=== PATIENT | female | born 2000 | race Caucasian/White ===

== ENCOUNTER 2023-12-02 21:59 | Observation (INO) ==
--- OUTSIDE RECORDS SUMMARY | 2023-12-02 22:05 | External Medical Summary | Summary of Care ---
Author Name Unknown Organization [facility] Address [address] [facility] [place] [address] Phone [phone] Care Team Providers Care Entry Level Mechanical Engineer Name Role Phone Victorina Waggoner Primary Care Provider Reason for Visit * Reason Comments Return Visit Encounter Details Date Type Department Care Team (Late st Contact Info) Description 11/30/2023 9:30 AM EDT Office Visit Gynecology/Obstetric [facility] [place] [address] [facility] [place] [address] Lovely Dumont PA-C [address] [facility] [place] [id number] Supervision of high-risk , third trimester*; Obesity in , antepartum; Maternal asthma complicating ; H/O macrosomia in in prior , currently ; Previous delivery, antepartum condition or complication; Short interval between pregnancies complicating , antepartum; Antepartum anemia complicating Allergies Active Allergy Reactions Criticality Noted Date Comments Penicillins Other (Please comment) 02/02/2000 Rash Does not remember severity of reaction d/t being very young documented as of this encounter (statuses as of 11/30/2023) Medications Medication Sig Dispensed Refills Start Date End Date Status Levocetirizine Dihydrochloride 5 MG Oral Tablet Use 1 tablet daily each evening for allergic nasal symptoms 30 Tablet 5 06/21/2021 Active 19 29-1 MG Oral Tablet Chewable Take by mouth . Active Ventolin HFA 108 (90 Base) MCG/ACT Inhalation Aerosol Solution Inhale 2 Puffs by mouth every 4 hours as needed for Cough, Shortness of Breath or Wheezing. 18 g 3 07/26/2022 Active Betamethasone Dipropionate 0.05 % External Cream (Diprosone)Indications :Other atopic dermatitis Apply to eczema on trunk, arms and legs twice daily as needed 45 g 3 07/12/2023 Active Acetaminophen Extra Strength 500 MG Oral Tablet PLEASE SEE ATTACHED FOR DETAILED DIRECTIONS 07/12/2023 Active Iron-Vitamin C 65-125 MG Oral Tablet (Vitron C)Indications:Antepart um anemia complicating Take 1 Tablet by mouth in the morning. 30 Tablet 4 10/05/2023 Active documented as of this encounter (statuses as of 11/30/2023) Active Problems Problem Noted Date Diagnosed Date Antepartum anemia complicating 024 Overview: Started on Vitron C daily Hgb 11.8 with third tri labs Supervision of high-risk , unspecified trimester 08/11/2023 Last Assessment & Plan: -LR Qnatal Acute maxillary sinusitis 06/22/2023 Short interval between pregn ancies complicating , antepartum 05/29/2023 Overview: Last delivery September 03, 2022 which was via Last Assessment & Plan: CONSIDERATIONS: Reviewed that a short Inter- Interval (IPI) may place the patient at an increased risk for , low weight, and SGA . IPI is defined as less than a year from the time of delivery of one to conception of the next . Some studies show that a short IPI may be associated with an increased risk for maternal , third trimester bleeding, premature rupture of membranes, puerperal endometritis, and anemia as well as placental abruption. RECOMMENDATION: After a delivery, we suggest women wait 12 months before conceiving again. Interdelivery interval (IDI) of 18 to 24 months have not been significantly associated with maternal morbidity in women undergoing Trial of Labor After . H/O macrosomia in infant in prior , currently 05/19/2023 Overview: 2022 complicated by macrosomia. weighed 4564 g (10 lbs 1 oz) at term delivered via Last Assessment & Plan: CONSIDERATIONS: Explained that macrosomia is defined as a weight of greater than 4000 grams. A woman who previously has given to an infant weighing more than 4,000 g is 5-10 times more likely to deliver an weighing more than 4,500 g than a woman without such a history. Discussed that a variety of factors predispose a to macrosomia, including preexisting maternal diabetes, uncontrolled gestational diabetes, maternal prepregnancy obesity, excessive gestational weight gain, maternal interpregnancy weight gain, a prior macrosomic , postterm , and maternal nonsmoking status. An accurate diagnosis of macrosomia can be made only by weighing the after delivery. The diagnosis of macrosomia is imprecise. Methods used to predict weight include assessment of maternal risk factors, clinical examination, and ultrasound measurement of the fetus. For suspected macrosomia, the accuracy of estimated weight using ultrasound biometry is no better than that obtained with clinical palpation. RECOMMENDATION: Recommend performing gestational diabetes mellitus screen at time of first visit and repeat again at 26-28 weeks if early screen is normal. Monitor maternal weight gain throughout . Recommended weight gain during is 11-20 pounds for women with pre- BMI of 37. Consider referral for a nutrition consult. Previous delivery, antepartum condition or complication 05/19/2023 Overview: Previous C/S x1 Plan: ERCD Maternal asthma complicating Overview: Managed with albuterol as needed 05/29/23 last albuterol use "years ago" Denies hospitalizations or intubations due to asthma Last Assessment & Plan: CONSIDERATIONS: Asthma symptoms may improve, worsen or remain unchanged in severity in . Asthma is generally managed the same in as in the non- patient, as asthma-control medications are considered safe in . If asthma is well-controlled with medications prior to , it is recommended to continue the same medication regimen during . A patient should seek medical care immediately if an asthma flare does not respond to therapy. Mild and well-controlled moderate asthma can be associated with excellent maternal and outcomes. Severe and poorly controlled asthma may be associated with increased morbidity and mortality. Asthma management includes monitoring of lung function with pulmonary function testing (when indicated), avoidance of triggers (such as tobacco smoke, mold, dust mite exposure, animal dander and cockroaches), and a step-care approach to pharmacologic therapy based on the severity of the patient's asthma. RECOMMENDATIONS: Inhaled corticosteroids are the mainstay of therapy for all patients except those with intermittent asthma. If patients are routinely requiring rescue inhaler (such as albuterol, Ventolin, ProAir, Atrovent, or Proventil) use more than twice weekly, we recommend adding a low-dose inhaled corticosteroid. [Pulmicort (budesonide) is preferred to use in .] If patients are routinely requiring rescue inhaler use daily, we recommend adding a combined low-dose inhaled corticosteroid/long-acting beta-agonist [such as Advair (fluticasone/salmeterol) or Symbicort (budesonide/formoterol)] or a medium dose inhaled corticosteroid. Patient should discuss these treatment options with her primary OB provider or PCP. Typically, patients do not need stress dose steroids as long as they continue their usual dose perioperatively (or during labor) and do not have primary renal failure or other problems with the pituitary axis. Medications such as prostaglandin F2a (including Hemabate), ergonovine, and indomethacin (in patients who are aspirin allergic) should be used with caution. Patients with moderate or severe persistent asthma should have Maternal- Medicine ultrasound for anatomy at 19-20 weeks. surveillance with growth ultrasounds and non-stress tests should be considered starting at 32 weeks. Obesity in , antepartum 07/21/2022 Overview: Pregravid BMI 37.03 Class 2 Early glucose screen ordered; not complete to date Baseline Preeclampsia Labs Lab Results Component Value Date/Time PLT 246 05/18/2023 09:38 AM CREATININE - [facility] 0.8 05/18/2023 09:38 AM AST - [facility] 13 05/18/2023 09:38 AM ALT - [facility] 14 05/18/2023 09:38 AM PROTEIN/ CREATININE RATIO, URINE - [facility] 53 05/18/2023 09:45 AM Last Assessment & Plan: She presents for follow-up of growth and anatomy secondary to class II obesity. She has a history of asthma, a short interval and history of macrosomia. We reviewed the results of today's ultrasound. The estimated weight is appropriate for gestational age in the 27th percentile. The visualized anatomy is unremarkable in appearance. Some structures remain suboptimally imaged secondary to position and poor acoustic windows. The AURORA is normal. We discussed the continued suboptimal cardiac imaging, though no overt abnormalities are appreciated. We reviewed the option of a referral to pediatric cardiology for additional assessment. She is interested in this if it can be obtained at [facility]. Elevated TSH 07/01/2022 Allergic conjunctivitis 10/28/2016 Allergic rhinitis 10/28/2013 Estimated Date of Delivery Comme nts Yes 12/24/2023 Based on Ultraso und documented as of this encounter (statuses as of 11/30/2023) Resolved Problems Problem Noted Date Diagnosed Date Resolved Date 13 weeks gestation of 06/22/2023 10/05/2023 intolerance to labor, delivered, current hospitalization 09/05/2022 09/09/2022 Status post delivery 09/04/2022 10/13/2022 Encounter for induction of labor 09/02/2022 09/09/2022 Group beta Strep positive 08/05/2022 Overview: Clindamycin Susceptible Penicillin G Susceptible Vancomycin Susceptible Encounter for ultrasound to assess growth 07/21/2022 09/09/2022 Overview: Referred to [facility] for "borderline large for gestational age abdominal circumference and humeral length" noted on 07/14/2022 general radiology ultrasound - results below: "Biometry Biparietal diameter: 8.6 cm, 34w 6d Head circumference: 31.9 cm, 36w 0d Abdominal circumference: 32.3 cm, 36w 2d, 98th percentile Femur length: 6.8 cm, 35w 0d Humeral length: 6.2 cm, 35w 6d, 97th percentile HC/AC: 0.99, within normal limits EFW: 2751 g +/-402 which is 92th percentile. IMPRESSION 1. Abdominal circumference and humeral length is borderline large for gestational age. Remaining growth within normal limits utilizing JEIMY from initial scan. 2. Normal AURORA 3. Vertex presentation" Of note: patient is 6' tall 1hr glucola result 128 >1 month ago; may consider repeat testing due to large AC. MFM ultrasound scheduled on 08/08/2022 Last Assessment & Plan: Referred for concern for LGA. Reviewed that fetus does not need criteria for LGA at this time. EFW 82%ile, AC 91%ile. AURORA WNL. Repeated 1hr GCT which was WNL. 31 weeks gestation of 07/01/2022 09/09/2022 Supervision of normal first , antepartum 01/13/2022 09/03/2022 Obesity, Class II, BMI 35-39.9 01/13/2022 10/04/2023 Overview: Early glucola Growth u/s every 4 weeks after 20wk Weekly NST starting at 37w Intermittent asthma with rel iever use up to twice per week 10/30/2014 05/18/2023 Otalgia 08/07/2012 07/12/2016 Dysfunction of eustachian tube 08/07/2012 07/12/2016 Acute URI 02/20/2007 08/31/2007 Acute pharyngitis 02/20/2007 08/31/2007 Overview: strep contact Methicillin resistant Staphy lococcus aureus infection 08/14/2006 07/12/2016 Cellulitis of trunk 08/14/2006 09/22/19 11 ADVANCE DIRECTIVE INFORMATION 09/29/2005 09/21/2010 Overview: Not applicable (under age of 18) Allergic rhinitis 06/03/2005 08/07/2012 Allergic conjunctivitis of both eyes 06/03/2005 07/12/2016 Atopic dermatitis 06/03/2005 05/18/2023 Disorder of vocal cord 06/03/200507/12 Overview: nodules eczema 09/21/2001 08/31/2007 LARYNGOTRACH ANOMALY NEC 12/08/199907/2016 ACQ NASOLACRML STENOSIS 12/08/199909/06 documented as of this encounter (statuses as of 11/30/2023) Immunizations Name Administration Dates Next Due DTaP Dipth/Tet/Acell Pertussis (Infanrix), Peds 06/20/2005 H1N1 2009 Influenza, IM 01/06/2009 HPV Vaccine, 4-Valent 12/02/2013 IPV - Polio Virus Vaccine (Inact) 06/20/2005 MMR - Measles/Mumps/Rubella Vaccine 06/20/2005 Meningococcal Conjugate Vacc ine (Menactra/Menveo) 02/01/2017,10/24/2011 PPD 01/21/2021,06/11/2018 Pneumococcal Conjugate Vacci ne, 20-valent ([id number]) 09/21/2021 RSV Vac., Bivalent, Perfusio n F, Pf,0.5 Ml (Abrysvo) 11/15/2023 Seasonal Influenza Vac., MDV , IM, 0.5 mL (Fluzone) 10/29/2013,11/15/2011,11/10/2010,11/06,12/07/2008,11/20/2006,01/05/20 06 10/29/2014 Seasonal Influenza, PF, 6 M & above, IM , (FluLaval or Fluzone) 11/16/2018,10/28/2016 10/28/2017 Seasonal Influenza, Quadriva lent, No Preserve, IM 10/29/2015,10/30/2014 10/31/2015 TDAP (age 10 and older)(Boostrix) 06/06/2022, TDAP, Age 7 and older, IM (Adacel) 10/05/2023 Varicella Vaccine (Chicken Pox) 10/24/2011 documented as of this encounter Social History Tobacco Use Types Packs/Day Years Used Date Smoking Tobacco: Never Smokeless Tobacco: Never Comments:no passive smoke cu rrently Alcohol Use Standard Drinks/Week Comments Not Currently 0 (1 standard drink = 0.6 oz pur e alcohol) denies in 2023 PHQ-2 Answer Date Recorded PHQ Adult Total Score 0 09/21/2021 Hunger Vital Sign Answer Date Recorded Within the past 12 months, y ou worried that your food would run out before you got the money to buy more. Never true 08/16/19 24 Within the past 12 months, t he food you bought just didn't last and you didn't have money to get more. Never true 08/16/2023 Festus Depression Scale Answer Date Recorded Festus Depression Scale Total 0 2023 The thought of harming myself has occurred to me . Never 2023 Childcare Answer Date Recorded Do you feel overwhelmed with taking care of a child, family member or friend? No 08/16/2023 Does your family need help f inding childcare? (Household - for ages 0-17 years) Not on file 08/16/2023 Clothing Answer Date Recorded Have you been unable to get clothing when it was really needed? No 08/16/2023 Is your family able to get c lothes or diapers when needed? (Household - for ages 0-17 years) Not on file 08/16/2023 Personal Safety Answer Date Recorded Do you feel unsafe or have concerns for your saf ety? No 08/16/2023 Do you have concerns for you r family's safety? (Household - for ages 0-17 years) Not on file 08/16/2023 Utilities Answer Date Recorded Do you have trouble paying y our heating, water, or electric bill? No 08/16/2023 Is your family able to pay t he heat, water, or electric bill? (Household - for ages 0-17 years) Not on file 08/16/2023 Does your family have access to good internet? (Household - for ages 0-17 years) Not on file 08/16/2023 Employment Status Answer Date Recorded Are you unemployed or without regular income? No 08/16/2023 Does the household have a re gular source of income? (Household - for ages 0-17 years) Not on file 08/16/2023 Social Connections Answer Date Recorded How often do you feel lonely or isolated from th ose around you? Never 08/16/2023 Financial Resource Strain Answer Date R ecorded Do you have any trouble payi ng for your medications, or do you think you might in the future? No 08/16/2023 Does your family have troubl e paying for medicine? (Household - for ages 0-17 years) Not on file 08/16/2023 Transportation Needs Answer Date Record ed READ ONLY Do you have troubl e getting a ride to medical visits or work? Never True 08/16/2023 Does your family have a hard time getting a ride to doctors visits? (Household - for ages 0-17 years) Not on file 08/16/2023 Has lack of transportation k ept you from medical appointments, meetings, work, or from getting things needed for daily living? Check all that apply. No 08/16/2023 Do you (or your family) have trouble finding or paying for a ride (transportation)? (Household - for ages 0-17 years) Not on file 08/16/2023 Housing Stability Answer Date Recorded Do you currently live in a s helter or have no steady place to sleep at night? No 08/16/2023 READ ONLY Do you think you a re at risk of becoming homeless? No 08/16/2023 Does your family worry about paying for your home or becoming homeless? (Household - for ages 0-17 years) Not on file 0 08/16/2023 Are you homeless or worried that you might be in the future? No 08/16/2023 Are you (or your family) isreal eless or worried that you might be in the future? (Household - for ages 0-17 years) Not on file Food Insecurity Answer Date Recorded Do you need food for this week? No 08/16/2023 Are you able to get enough f ood for your family? (Household - for ages 0-17 years) Not on file 08/16/2023 Does your family need food t his week? (Household - for ages 0-17 years) Not on file 08/16/2023 Do you always have enough fo od for your family? (Household - for ages 0-17 years) Not on file 08/16/2023 Estimated Date of Delivery Comme nts Yes 12/24/2023 Based on Ultraso und Sex and Gender Information Value Date Recorded Sex Assigned at Female 04/24/2018 12:43 PM EDT Gender Identity Female 04/24/2018 12:43 PM EDT Sexual Orientation Straight 09/21/2021 8: 24 AM EDT Job Start Date Occupation Industry Not on file Not on file Not on file documented as of this encounter Last Filed Vital Signs Vital Sign Reading Time Taken Comments Blood Pressure 102/62 11/30/2023 9:16 AM EDT Pulse - - Temperature - - Respiratory Rate - - Oxygen Saturation - - Inhaled Oxygen Concentration - - Weight 138.3 kg (305 lb) 11/30/2023 9:16 AM EDT Height - - Body Mass Index 41.35 11/17/2023 1:34 PM EDT documented in this encounter Progress Notes * Meena Harvey LPN - 11/30/2023 9:16 AM EDT 36w4d Denies vaginal bleeding/rom + movement No new concerns * Lovely Dumont PA-C - 11/30/2023 8:51 AM EDT Janey Loyola is a 23 year old female here for her routine OB appointment at 36w4d Her Estimated Date of Delivery: 12/24/23 Had U/S with MFM today. Per patient, results WNL. Baby's position is breech. REVIEW OF SYSTEMS She affirms movement. Denies vaginal bleeding, LOF, contractions, N/V, headaches, vision changes. PHYSICAL EXAM Filed Vitals: 11/30/23 0916 BP: 102/62 Weight: (!) 138.3 kg (305 lb) +FHT 140s Fundal height 37 cm GBS swab collected. Trimming Department Blocker Documentation Patient offered corporate secretary and accepted. Name of corporate secretary: Meena Harevy LPN. ASSESSMENT/PLAN Supervision of high-risk , third trimester (Primary) - GROUP B STREP CULTURE/PCR Obesity in , antepartum - To start weekly NSTs with next visit. Maternal asthma complicating H/O macrosomia in infant in prior , currently Previous delivery, antepartum condition or complication - ERCS scheduled. Pre-op appointment with Dr. Robins scheduled 12/01/2023 Short interval between pregnancies complicating , antepartum Antepartum anemia complicating Supervision of - recommended flu vaccine - patient received prior. - GBS swab collected today - labor precautions and kick counts reviewed RTO in 1 week for YARELY/NST Lovely Dumont PA-C 11/30/2023 documented in this encounter Plan of Treatment Upcoming Encounters Date Type Department Care Team (Late st Contact Info) Description 12/04/2023 2:30 PM EDT Office Visit Gynecology/Obstetrics Stephen Rubio [address] [place] [id number] Adan Robins MD [address] [place] [id number] Prema Rubio Stress [facility] [place] [address] [place] [id number] 12/14/2023 3:15 PM EST Office Visit Gynecology/Obstetrics Stephen Rubio [address] [place] [address] Lovely Dumont PA-C [address] [place] [address] [place] [address] Prema Rubio Stress [facility] [place] [address] [place] [phone] 12/26/2023 10:30 AM EST Office Visit Gynecology/Obstetrics Stephen Rubio [address] [place] [address] Tara Liao CRNP [address] [place] [phone] Pending Results Name Type Priority Associated Diagnoses Date /Time GROUP B STREP CULTURE/PCR Lab Routine Supervision of high-risk , third trimester 11/30/2023 9:33 AM EDT Health Maintenance Due Date Last Done Comments HPV (Gardasil) Vaccine (2 - 2-dose series) 06/02/2014 12/02/2013 Depression Screening 09/21/2022 09/21/2021 COVID-19 Vaccine (2023-2 5 season) 2023 02/11/2021, 01/21/2021 Influenza Vaccine (FLU shot) (#1) 2023 11/16/2018, 11/16/2018, 10/28/2016, Additional history exists Gonorrhea / Chlamydia Screen 05/17/202412/2023, 02/26/2022, 01/13/2022, Additional history exists Pap Smear 06/21/2024 06/21/2021 DTap/Tdap Vaccines (9 - Td o r Tdap) 10/04/2033 10/05/2023, 06/06/2022, 10/24/2011, Additional history exists Hepatitis B Vaccine Completed 08/10/2000, 1999, 1999 MENINGOCOCCAL (MENACTRA/MENVEO) Completed 7, 10/24/2011 Pneumococcal Vaccine: Pediat rics (0 to 5 Years) and At-Risk Patients (6 to 64 Years) Completed 09/21/2021 documented as of this encounter Medical Devices Not on filedocumented as of this encounter Visit Diagnoses Diagnosis Supervision of high-risk , third trimester- Primary Obesity in , antepartum Obesity complicating , childbirth, or the puerperium, antepartum condition or complication Maternal asthma complicating Other current maternal conditions classifiable elsewhere, complicating , childbirth, or the puerperium, unspecified as to episode of care H/O macrosomia in infant in prior , currently with other poor obstetric history Previous delivery, antepartum condition or complication Short interval between pregnancies complicating , antepartum Supervision of other high-risk Antepartum anemia complicating Anemia, antepartum documented in this encounter Advance Directives * Full Code (Latest Code Status on File) Date Activated Date Inactivated Comments 09/03/2022 5:55 PM 09/03/2022 9:14 PM This order r eflects the patients wishes and were consensually agreed upon. Question Answer Comments Discussion of Advance Direct deniz occurred with: Not Discussed due to patient's condition Does the patient have a Living Will? No Does the patient have Health Care Power of Pump Station Operator? No * Full Code Date Activated Date Inactivated Comments 09/02/2022 5:18 PM 09/03/2022 5:55 PM This order r eflects the patients wishes and were consensually agreed upon. Question Answer Comments Discussion of Advance Directives occurred with: Patient Healthcare Agents on File Name Relationship Healthcare Agent Relationshi p Communication [place] Spouse Health Care Repr esentative (appointed verbally by patient or by statute hierarchy) Care Teams Entry Level Mechanical Engineer Relationship Specialty Start Date End Date Victorina Waggoner CRNP [address] [place] [id number] PCP - General Nurse Practitioner 03/05/21 documented as of this encounter
--- OUTSIDE RECORDS SUMMARY | 2023-12-02 22:05 | External Medical Summary | Summary of Care ---
Author Name Unknown Organization [facility] Address [address] [place] [place] [address] Phone [phone] Care Team Providers Care Flight Agent Name Role Phone Victorina Waggoner Primary Care Provider Encounter Details Date Type Department Care Team (Late st Contact Info) Description 12/01/2023 Telephone Gynecology/Obstetrics [facility] [address] [place] [address] Lovely Dumont PA-C [address] [place], [place] [phone] Allergies Active Allergy Reactions Criticality Noted Date Comments Penicillins Other (Please comment) 02/02/2000 Rash Does not remember severity of reaction d/t being very young documented as of this encounter (statuses as of 12/01/2023) Medications Medication Sig Dispensed Refills Start Date [...] as of this encounter (statuses as of 12/01/2023) Active Problems Problem Noted Date Diagnosed Date Group beta Strep positive 12/01/2023 Overview: Patient with PCN allergy. Waiting for sensitivities. Antepartum anemia complicating 024 Overview: Started on [...] of Labor After . H/O macrosomia in in prior , currently 05/19/2023 Overview: 2022 complicated by macrosomia. weighed 4564 g (10 lbs 1 oz) at term delivered via Last Assessment & Plan: CONSIDERATIONS: Explained that macrosomia is defined as a weight of greater than 4000 grams. A woman who previously has given to an weighing more than 4,000 g is 5-10 [...] 09:38 AM PROTEIN/ CREATININE RATIO, URINE - SOL 53 05/18/2023 09:45 AM Last Assessment & [...] this if it can be obtained at [facility]. Elevated TSH 07/01/2022 Allergic conjunctivitis 10/28/2016 Allergic rhinitis 10/28/2013 Estimated Date of Delivery Comme nts Yes 12/24/2023 Based on Ultraso und documented as of this encounter (statuses as of 12/01/2023) Resolved Problems Problem Noted Date Diagnosed Date Resolved Date 13 weeks gestation of 06/22/2023 10/05/2023 intolerance to labor, delivered, current hospitalization 09/05/2022 09/09/2022 Status post delivery 09/04/2022 10/13/2022 Encounter for induction of labor 09/02/2022 09/09/2022 Group beta Strep positive 08/05/2022 Overview: Clindamycin Susceptible Penicillin G Susceptible Vancomycin Susceptible Encounter for ultrasound to assess growth 07/21/2022 09/09/2022 Overview: Referred to [facility] for "borderline large for gestational age [...] as of this encounter (statuses as of 12/01/2023) Immunizations Name Administration Dates Next Due DTaP Dipth/Tet/Acell Pertussis (Infanrix), Peds 06/20/2005,06/04/2001,06/01/2000,08/2000,01/05/2000 H1N1 2009 Influenza, IM 01/06/2009 HIB PRP-T, 4 Dose, PF, IM (H iberix, ActHib) 06/04/2001,06/01/2000,03/15/2000,12/08 HPV Vaccine, 4-Valent 12/02/2013 Hepatitis B, 0-19 yrs 08/10/2000,1999,10/08 IPV - Polio Virus Vaccine (Inact) 2005,06/01/2000,03/15/2000,12/08 MMR - Measles/Mumps/Rubella Vaccine 06/20/2005,0 02/20/2001 Meningococcal Conjugate Vacc ine (Menactra/Menveo) 02/01/2017,10/24/2011 PPD 01/21/2021,06/11/2018 Pneumococcal Conjugate Vacci ne, 20-valent ([id number]) 09/21/2021 Pneumococcal Conjugate Vacci ne, 7 Valent 06/01/2000,03/15/2000,01/05/2000 RSV Vac., Bivalent, Perfusio n F, Pf,0.5 Ml (Abrysvo) 11/15/2023 Seasonal Influenza Vac., MDV , IM, 0.5 mL (Fluzone) 10/29/2013,11/15/2011,11/10/2010,11/06,12/07/2008,11/20/2006,01/05/20 06,02/09/2005,01/03/2005 10/29/2014 Seasonal Influenza, PF, 6 M & above, IM , (FluLaval or Fluzone) 11/16/2018,10/28/2016 10/28/2017 Seasonal Influenza, Quadriva lent, No Preserve, IM 10/29/2015,10/30/2014 10/31/2015 TDAP (age 10 and older)(Boostrix) 06/06/2022, TDAP, Age 7 and older, IM (Adacel) 10/05/2023 Varicella Vaccine (Chicken Pox) 10/24/2011,02/20 documented as of this encounter Social History [...] money to get more. Never true 08/16/2023 [place] Depression Scale Answer Date Recorded [place] Depression Scale Total 0 2023 The thought [...] on file documented as of this encounter Miscellaneous Notes * Telephone Encounter - Lola Land RN - 12/01/2023 12:34 PM EDT Patient called and made aware. She verbalized understanding. * Telephone Encounter - Lola Land RN - 12/01/2023 12:27 PM EDT ----- Message from Lovely Dumont sent at 12/01/2023 12:25 PM EDT ----- Please inform patient her recent GBS culture was positive. As discussed, we will treat this with antibiotics in labor. Thanks! Lovely Dumont PA-C documented in this encounter Plan of Treatment Upcoming Encounters Date Type Department Care Team (Late st Contact Info) Description 12/04/2023 2:30 PM EDT Office Visit Gynecology/Obstetrics Stephen Rubio [address] [address] Adan Robins MD [address] [place] [address] Prema Rubio Stress Tests Galina [address] [place] [address] 12/14/2023 3:15 PM EST Office Visit Gynecology/Obstetrics Stephen Rubio [address] [place] [address] Lovely Dumont PA-C [address] [place] [address] [place] [address] Ramiro, Non Stress Tests Galina [address] [place] [address] 12/26/2023 10:30 AM EST Office Visit Gynecology/Obstetrics Stephen Rubio [address] [place] [address] BackerTara CRNP [address] [place] [address] Health Maintenance Due Date Last Done Comments HPV (Gardasil) Vaccine (2 - 2-dose series) 06/02/2014 12/02/2013 Depression Screening 09/21/2022 09/21/2021 COVID-19 Vaccine (3 - 2023-2 5 season) 2023 02/11/2021, 01/21/2021 Influenza Vaccine [...] Not on filedocumented as of this encounter Advance Directives * Full Code [...] the patient have Health Care Power of Ad Operations Coordinator? No * Full Code Date Activated Date Inactivated Comments 09/02/2022 5:18 PM 09/03/2022 5:55 PM This order r eflects the patients wishes and were consensually agreed upon. Question Answer Comments Discussion of Advance Directives occurred with: Patient Healthcare Agents on File Name Relationship Healthcare Agent Relationshi p Communication Mio Milla Spouse Health Care Repr esentative (appointed verbally by patient or by statute hierarchy) Care Teams Flight Agent Relationship Specialty Start Date End Date Victorina Waggoner CRNP [address] [place] [address] PCP - General Nurse Practitioner 03/05/21 documented as of this encounter
--- OUTSIDE RECORDS SUMMARY | 2023-12-02 22:05 | External Medical Summary | Summary of Care ---
Author Name Unknown Organization [facility] Address [address] [facility] [place] [address] Phone [phone] Care Team Providers Care Auto Body Shop Manager Name Role Phone Victorina Waggoner Primary Care Provider Encounter Details Date Type Department Care Team (Late st Contact Info) Description 12/01/2023 Telephone Gynecology/Obstetrics [facility] [address] [place] [address] Lovely Dumont PA-C [address] [place], [place] [phone] Allergies Active Allergy Reactions Criticality Noted Date [...] this if it can be obtained at [facility]. Elevated TSH 07/01/2022 Allergic conjunctivitis 10/28/2016 [...] assess growth 07/21/2022 09/09/2022 Overview: Referred to [facility] for "borderline large for gestational age abdominal [...] PPD 01/21/2021,06/11/2018 Pneumococcal Conjugate Vacci ne, 20-valent ([id number]) 09/21/2021 Pneumococcal Conjugate Vacci ne, 7 Valent [...] money to get more. Never true 08/16/2023 [place] Depression Scale Answer Date Recorded [place] Depression Scale Total 0 2023 The thought [...] Visit Gynecology/Obstetrics Stephen Rubio [address] [address] Adan Robins MD [address] [address] Prema Rubio Stress Tests [place] [address] [address] 12/14/2023 3:15 PM EST Office Visit Gynecology/Obstetrics Stephen Rubio [address] [place] [address] Lovely Dumont PA-C [address] [place] [address] [place] [address] Ramiro, Non Stress Tests Galina [address] [place] [address] 12/26/2023 10:30 AM EST Office Visit Gynecology/Obstetrics Stephen Rubio [address] [place] [address] BackerTara CRNP [address] [place] [address] Health Maintenance Due Date Last Done Comments [...] the patient have Health Care Power of Boat Rigger? No * Full Code Date Activated Date [...] patient or by statute hierarchy) Care Teams Auto Body Shop Manager Relationship Specialty Start Date End Date Victorina Waggoner CRNP [address] [address] PCP - General Nurse Practitioner 03/05/21 documented as of this encounter
--- OUTSIDE RECORDS SUMMARY | 2023-12-02 22:05 | External Medical Summary ---
Author Name Unknown Address Unknown Organization K01:[facility] - [facility] [address] [place] [address] Laboratory Report Ordering Provider Test Date Status CARTER CASTELLANOS 11/30/2023 09:33:31 Final Observation Date Value Abnormality Reference (Units ) Status Streptococcus agalactiae DNA [Presence] in Specimen by LINDA with probe detection 11/30/2023 09:33:31 Positive Abnormal Negative Final Group B Streptococcus detect ed by culture-enhanced PCR (amplified probe). GBS GBSCT - [facility] 11/30/2023 09:33:31 17.4 Final GBS SPCCT - [facility] 11/30/2023 09:33:31 0.0 Final Performing Location [facility] - [address] [place] [address]
--- OUTSIDE RECORDS SUMMARY | 2023-12-02 22:05 | External Medical Summary | Summary of Care ---
Author Name Unknown Organization [facility] Address [address] [place] [address] Phone [phone] Care Team Providers Care Residential Manager Name Role Phone Victorina Waggoner Primary Care Provider Encounter Details Date Type Department Care Team (Late st Contact Info) Description 11/30/2023 8:00 AM EDT Office Visit Solar Sales Estimator Obstetrics Maternal Medicine, [address] [address] Michelle Arellano, DO [address] [place] [address] Obesity in , antepartum*; Ultrasound for screening for growth restriction; 36 weeks gestation of Allergies Active Allergy Reactions Criticality Noted Date [...] 5-10 times more likely to deliver an infant weighing more than 4,500 g than a woman without such a history. Discussed that a variety of factors predispose a to macrosomia, including preexisting maternal diabetes, uncontrolled gestational diabetes, maternal prepregnancy obesity, excessive gestational weight gain, maternal interpregnancy weight gain, a prior macrosomic infant, postterm , and maternal nonsmoking status. An [...] this if it can be obtained at [facility]. Elevated TSH 07/01/2022 Allergic conjunctivitis 10/28/2016 Allergic [...] assess growth 07/21/2022 09/09/2022 Overview: Referred to [facility] for "borderline large for gestational age [...] PPD 01/21/2021,06/11/2018 Pneumococcal Conjugate Vacci ne, 20-valent ([id number]) 09/21/2021 RSV Vac., Bivalent, Perfusio n F, [...] money to get more. Never true 08/16/2023 [place] Depression Scale Answer Date Recorded [place] Depression Scale Total 0 2023 The thought [...] on file documented as of this encounter Progress Notes * AdanMichelle field DO - 11/30/2023 10:43 AM EDT Janey presented today at 36w4d for an ultrasound for the following indications: Obesity in , antepartum Ultrasound for screening for growth restriction 36 weeks gestation of Ultrasound summary: Patient presented at 36w 4d for growth assessment. Normal growth with EFW 3097 g at 66%ile. Normal AURORA at 12.2 cm. Breech presentation. I reviewed the ultrasound images. Janey was given the opportunity to meet with me if she had anyquestions. Please refer to the ultrasound report for additional details about today's ultrasound examination. RECOMMENDATIONS: Follow up with MFM for ultrasound as clinically indicated. Breech presentation today -- repeat c/s is planned. Weekly NSTs. See prior formal MFM consultation note. Thank you for allowing us to participate in the care of this patient. Please call with any questions. Michelle Arellano DO 11/30/2023 10:43 AM documented in this encounter Plan of Treatment Upcoming Encounters Date Type Department Care Team (Late st Contact Info) Description 12/04/2023 2:30 PM EDT Office Visit Gynecology/Obstetrics Stephen Rubio [address] [place] [address] Adan Robins MD [address] [place] [address] Prema Rubio Stress Tests [place] [address] [place] [address] 12/14/2023 3:15 PM EST Office Visit Gynecology/Obstetrics Stephen Rubio [address] [place] [address] Lovely Dumont PA-C [address] [place] [address] [place] [address] Prema Rubio Stress Tests [place]ina [address] [place] [address] 12/26/2023 10:30 AM EST Office Visit Gynecology/Obstetrics Stephen Rubio [address] [place] [address] Tara Liao CRNP [address] [place] [address] Health Maintenance Due Date Last Done Comments HPV (Gardasil) Vaccine (2 - 2-dose series) 06/02/2014 12/02/2013 Depression Screening 09/21/2022 09/21/2021 COVID-19 Vaccine ( - 2023-2 5 season) 2023 02/11/2021, 01/21/2021 [...] as of this encounter Visit Diagnoses Diagnosis Obesity in , antepartum- Primary Obesity complicating , childbirth, or the puerperium, antepartum condition or complication Ultrasound for screening for growth restriction screening for growth retardation using ultrasonics 36 weeks gestation of state, incidental documented in this encounter Advance Directives * [...] the patient have Health Care Power of Compliance Spec? No * Full Code Date Activated Date [...] patient or by statute hierarchy) Care Teams Residential Manager Relationship Specialty Start Date End Date Victorina Waggoner CRNP [address] [place] [address] PCP - General Nurse Practitioner 03/05/21 documented as of this encounter
--- OUTSIDE RECORDS SUMMARY | 2023-12-02 22:05 | External Medical Summary | Summary of Care ---
Author Name Unknown Organization [facility] Address [address] [place] [address] Phone [phone] Care Team Providers Care Orthopaedic Doctor Name Role Phone Victorina Waggoner Primary Care Provider Encounter Details Date Type Department Care Team (Late st Contact Info) Description 11/30/2023 8:00 AM EDT Office Visit Wire Hanger Obstetrics Maternal Medicine, [address] [address] Michelle Arellano, DO [address] [place] [address] Obesity in , antepartum*; Ultrasound [...] this if it can be obtained at [facility]. Elevated TSH 07/01/2022 Allergic conjunctivitis 10/28/2016 Allergic [...] assess growth 07/21/2022 09/09/2022 Overview: Referred to [facility] for "borderline large for gestational age abdominal [...] PPD 01/21/2021,06/11/2018 Pneumococcal Conjugate Vacci ne, 20-valent ([id number]) 09/21/2021 Pneumococcal Conjugate Vacci ne, 7 Valent 06/01/2000,03/15/2000,01/05/2000 RSV Vac., Bivalent, Perfusio n F, Pf,0.5 Ml (Abrysvo) 11/15/2023 Seasonal Influenza Vac., MDV , IM, 0.5 mL (Fluzone) 10/29/2013,11/15/2011,11/10/2010,11/06,12/07/2008,11/20/2006,01/05/20,02/09/2005,01/03/2005 10/29/2014 Seasonal Influenza, PF, 6 M & [...] money to get more. Never true 08/16/2023 [place] Depression Scale Answer Date Recorded [place] Depression Scale Total 0 2023 The thought [...] as of this encounter Progress Notes * Michelle Arellano DO - 11/30/2023 10:43 AM EDT Janey [...] 12/04/2023 2:30 PM EDT [facility] [address] [place] [address] Adna Robins MD [address] [address] [address] Ramiro, Non Stress Tests Galina [address] [place] [address] 12/14/2023 3:15 PM EST Office Visit Gynecology/Obstetrics Stephen Rubio [address] [facility] [place] [address] Lovely Dumont PA-C [address] [place] [address] [place] [address] Ramiro, Non Stress Tests Galina [address] [place] [address] 12/26/2023 10:30 AM EST Office Visit Gynecology/Obstetrics Stephen Blanks [address] [place] [address] Tara Liao CRNP [address] [place] [address] Health Maintenance Due Date Last Done Comments [...] the patient have Health Care Power of Jewel Bearing Turner? No * Full Code Date Activated Date [...] patient or by statute hierarchy) Care Teams Orthopaedic Doctor Relationship Specialty Start Date End Date Victorina Waggoner CRNP [address] [address] PCP - General Nurse Practitioner 03/05/21 documented as of this encounter
[2023-12-02] MEDS ORDERED: CALCIUM CARBONATE 500 MG CHEWABLE TAB PO PRN (22:06)
--- OUTSIDE RECORDS SUMMARY | 2023-12-02 22:06 | External Medical Summary | Summary of Care ---
Author Name Unknown Organization [facility] Address [address] [facility] [place] [address] Phone [phone] Care Team Providers Care Online Content Developer Name Role Phone Victorina Waggoner Primary Care Provider Reason for Visit * Reason Comments Return Visit Encounter Details Date Type Department Care Team (Late st Contact Info) Description 11/15/2023 8:00 AM EDT Office Visit Gynecology/Obstetric s Stephen Rubio [address] [place] [address] Zuly Medina CRNP [address] [place] [address] High risk multigravida in third trimester*; Obesity in , antepartum; Maternal asthma complicating ; H/O macrosomia in in prior , currently ; Previous delivery, antepartum condition or complication; Short interval between pregnancies complicating , antepartum; Antepartum anemia complicating ; Need for RSV vaccination Allergies Active Allergy Reactions Criticality Noted Date Comments Penicillins Other (Please comment) 02/02/2000 Rash Does not remember severity of reaction d/t being very young documented as of this encounter (statuses as of 11/15/2023) Medications Medication Sig Dispensed Refills Start Date [...] as of this encounter (statuses as of 11/15/2023) Active Problems Problem Noted Date Diagnosed Date [...] currently 05/19/2023 Overview: 2022 complicated by macrosomia. Infant weighed 4564 g (10 lbs 1 oz) [...] this if it can be obtained at [facility]. Elevated TSH 07/01/2022 Allergic conjunctivitis 10/28/2016 Allergic rhinitis 10/28/2013 Estimated Date of Delivery Comme nts Yes 12/24/2023 Based on Ultraso und documented as of this encounter (statuses as of 11/15/2023) Resolved Problems Problem Noted Date Diagnosed Date Resolved Date 13 weeks gestation of 06/22/2023 10/05/2023 intolerance to labor, delivered, current hospitalization 09/05/2022 09/09/2022 Status post delivery 09/04/2022 10/13/2022 Encounter for induction of labor 09/02/2022 09/09/2022 Group beta Strep positive 08/05/2022 Overview: Clindamycin Susceptible Penicillin G Susceptible Vancomycin Susceptible Encounter for ultrasound to assess growth 07/21/2022 09/09/2022 Overview: Referred to [facility] for "borderline large for gestational age [...] as of this encounter (statuses as of 11/15/2023) Immunizations Name Administration Dates Next Due DTaP Dipth/Tet/Acell Pertussis (Infanrix), Peds 06/20/2005 H1N1 2009 Influenza, IM 01/06/2009 HPV Vaccine, 4-Valent 12/02/2013 IPV - Polio Virus Vaccine (Inact) 06/20/2005 MMR - Measles/Mumps/Rubella Vaccine 06/20/2005 Meningococcal Conjugate Vacc ine (Menactra/Menveo) 02/01/2017,10/24/2011 PPD 01/21/2021,06/11/2018 Pneumococcal Conjugate Vacci ne, 20-valent ([id number]) 09/21/2021 RSV Vac., Bivalent, Perfusio n F, [...] money to get more. Never true 08/16/2023 [place] Depression Scale Answer Date Recorded [place] Depression Scale Total 0 2023 The thought [...] Sign Reading Time Taken Comments Blood Pressure 102/60 11/15/2023 8:03 AM EDT Pulse - - Temperature - - Respiratory Rate - - Oxygen Saturation - - Inhaled Oxygen Concentration - - Weight 136.2 kg (300 lb 3.2 oz) 11/15/2023 8:03 AM EDT Height - - Body Mass Index 40.7 10/20/2023 2:31 PM EDT documented in this encounter Progress Notes * Zuly Medina CRNP - 11/15/2023 8:17 AM EDT 34w3d Having issues with sciatic pain. Recommend chiropractor. No other concerns. Baby is active. No contractions, bleeding, LOF. Has MFM appt scheduled, c/s scheduled. RSV vaccien today. LENORE Eller * Kimberli Angulo CMA - 11/15/2023 8:03 AM EDT 34w3d Denies any concerns documented in this encounter Nursing Notes * Monie Galvan LPN - 11/15/2023 8:24 AM EDT Patient here for rsv injection. Patient doing well no complaints. Injection given IM as ordered. Patient tolerated well. Patient to follow up as directed. Patient instructed to call if any complications. Patient verbalized understanding of instructions given and her follow up appt for YARELY Injection site: Left Deltoid Medication Source: Dispensed stock medication documented in this encounter Plan of Treatment Upcoming Encounters Date Type Department Care Team (Late st Contact Info) Description 11/30/2023 8:00 AM EDT Imaging Maternal Medicine Imaging, Galina Rubio [address] [place] [phone] 11/30/2023 9:30 AM EDT Office Visit Gynecology/Obstetrics [address] [place] [address] Lovely Dumont PA-C [address] [place], [place] [address] [address] 12/04/2023 8:30 AM EDT Office Visit Gynecology/Obstetrics Stephen Rubio [address] [place] [address] Adan Robins MD [address] [place] [address] 12/26/2023 10:30 AM EST Office Visit Gynecology/Obstetrics Stephen Rubio [address] [place] [address] Tara Liao CRNP [address] [place] [address] Health Maintenance Due Date Last Done Comments [...] as of this encounter Visit Diagnoses Diagnosis High risk multigravida in third trimester- Primary Obesity in , antepartum [...] other high-risk Antepartum anemia complicating Anemia, antepartum Need for RSV vaccination Need for prophylactic vaccination and inoculation against respiratory syncytial virus documented in this encounter Advance Directives * [...] the patient have Health Care Power of Mail Weigher? No * Full Code Date Activated Date [...] patient or by statute hierarchy) Care Teams Online Content Developer Relationship Specialty Start Date End Date Victorina Waggoner CRNP [address] [place] [address] PCP - General Nurse Practitioner 03/05/21 documented as of this encounter
--- OUTSIDE RECORDS SUMMARY | 2023-12-02 22:06 | External Medical Summary | Summary of Care ---
Author Name Unknown Organization [facility] Address [address] [place] [place] [facility] [place] [address] Phone [phone] Care Team Providers Care Associate Dean Of Students Name Role Phone Victorina Waggoner Primary Care Provider Reason for Visit * Reason Comments Outpatient Testing Encounter Details Date Type Department Care Team (Late st Contact Info) Description 10/06/2023 9:00 AM EDT Laboratory Laboratory, [place] [address] [place] [address] [place], Laboratory [address], [place] [id number] Abnormal glucose tolerance in mother complicating Allergies Active Allergy Reactions Criticality Noted Date Comments Penicillins Other (Please comment) 02/02/2000 Rash Does not remember severity of reaction d/t being very young documented as of this encounter (statuses as of 10/06/2023) Medications Medication Sig Dispensed Refills Start Date [...] as of this encounter (statuses as of 10/06/2023) Active Problems Problem Noted Date Diagnosed Date [...] if it can be obtained at [facility]. Elevated TSH 07/01/2022 Allergic conjunctivitis 10/28/2016 Allergic rhinitis 10/28/2013 Estimated Date of Delivery Comme nts Yes 12/24/2023 Based on Ultraso und documented as of this encounter (statuses as of 10/06/2023) Resolved Problems Problem Noted Date Diagnosed Date Resolved Date 13 weeks gestation of 06/22/2023 10/05/2023 intolerance to labor, delivered, current hospitalization 09/05/2022 09/09/2022 Status post delivery 09/04/2022 10/13/2022 Encounter for induction of labor 09/02/2022 09/09/2022 Group beta Strep positive 08/05/2022 Overview: Clindamycin Susceptible Penicillin G Susceptible Vancomycin Susceptible Encounter for ultrasound to assess growth 07/21/2022 09/09/2022 Overview: Referred to [facility] for "borderline large for gestational age [...] as of this encounter (statuses as of 10/06/2023) Immunizations Name Administration Dates Next Due DTaP Dipth/Tet/Acell Pertussis (Infanrix), Peds 06/20/2005,06/04/2001,06/01/2000,0208/2000,01/05/2000 H1N1 2009 Influenza, IM 01/06/2009 HIB PRP-T, 4 Dose, PF, IM (H iberix, ActHib) 06/04/2001,06/01/2000,03/15/2000,12/08 HPV Vaccine, 4-Valent 12/02/2013 Hepatitis B, 0-19 yrs 08/10/2000,1999,10/08 IPV - Polio Virus Vaccine (Inact) 2005,06/01/2000,03/15/2000,12/08 MMR - Measles/Mumps/Rubella Vaccine 06/20/2005,0 02/20/2001 Meningococcal Conjugate Vacc ine (Menactra/Menveo) 02/01/2017,10/24/2011 PPD 01/21/2021,06/11/2018 Pneumococcal Conjugate Vacci ne, 20-valent ([id number]) 09/21/2021 Pneumococcal Conjugate Vacci ne, 7 Valent 06/01/2000,03/15/2000,01/05/2000 Seasonal Influenza, PF, 6 M & above, IM , (FluLaval or Fluzone) 11/16/2018,10/28/2016 10/28/2017 Seasonal Influenza, Quadriva lent, No Preserve, IM 10/29/2015,10/30/2014 10/31/2015 Seasonal Influenza, Trivalen t, (IIV3), with Preserv, (Fluzone) 10/29/2013,11/15/2011,11/10/2010,11/06,12/07/2008,11/20/2006,01/05/20 06,02/09/2005,01/03/2005 10/29/2014 TDAP (age 10 and older)(Boostrix) 06/06/2022, TDAP, [...] money to get more. Never true 08/16/2023 [place] Depression Scale Answer Date Recorded [place] Depression Scale Total 0 05/18/2023 The thought of harming myself has occurred to me . Never 05/18/2023 Childcare Answer Date Recorded Do you feel [...] on file documented as of this encounter Plan of Treatment Upcoming Encounters Date Type Department Care Team (Late st Contact Info) Description 10/20/2023 11:45 AM EDT Office Visit Gynecology/Obstetrics Janicechang Rubio [address] [place] [address] Keesha Macdonald PA-C [address] [place] [address] 2023 11:00 AM EDT Imaging Maternal Medicine Imaging, Galina Rubio [address] [place] [phone] 11/30/2023 8:00 AM EDT Imaging Maternal Medicine Imaging, Galina Rubio [address] [place] [phone] Pending Results Name Type Priority Associated Diagnoses Date /Time GESTATIONAL GLUCOSE TOLERANCE, 3 HOUR Lab Routine Abnormal glucose tolerance in mother complicating 10/06/2023 9:09 AM EDT 100-G GESTATIONAL GLUCOSE, FASTING Lab Routine Abnormal glucose tolerance in mother complicating 10/06/2023 9:09 AM EDT 100-G GESTATIONAL GLUCOSE, 1 HOUR Lab Routine Abnormal glucose tolerance in mother complicating 10/06/2023 10:10 AM EDT 100-G GESTATIONAL GLUCOSE, 2 HOUR Lab Routine Abnormal glucose tolerance in mother complicating 10/06/2023 11:11 AM EDT 100-G GESTATIONAL GLUCOSE, 3 HOUR Lab Routine Abnormal glucose tolerance in mother complicating 10/06/2023 12:10 PM EDT Health Maintenance Due Date Last Done Comments HPV (Gardasil) Vaccine (2 - 2-dose series) 06/02/2014 12/02/2013 Depression Screening 09/21/2022 09/21/2021 COVID-19 Vaccine (3 - 2022-2 4 season) 2022 02/11/2021, 01/21/2021 Influenza Vaccine (FLU shot) (#1) [...] as of this encounter Visit Diagnoses Diagnosis Abnormal glucose tolerance in mother complicating Abnormal maternal glucose tolerance, complicating , childbirth, or the puerperium, unspecified as to episode of care documented in this encounter Advance Directives * [...] the patient have Health Care Power of Gaming Table Operator? No * Full Code Date Activated Date Inactivated Comments 09/02/2022 5:18 PM 09/03/2022 5:55 PM This order r eflects the patients wishes and were consensually agreed upon. Question Answer Comments Discussion of Advance Directives occurred with: Patient Healthcare Agents on File Name Relationship Healthcare Agent Relationshi p Communication Mio [place] Spouse Health Care Repr esentative (appointed verbally by patient or by statute hierarchy) Care Teams Associate Dean Of Students Relationship Specialty Start Date End Date Victorina Waggoner CRNP [address] [place] [address] PCP - General Nurse Practitioner 03/05/21 documented as of this encounter
--- OUTSIDE RECORDS SUMMARY | 2023-12-02 22:06 | External Medical Summary | Summary of Care ---
Author Name Unknown Organization [facility] Address [address] [facility] [place] [address] Phone [phone] Care Team Providers Care Contact Lens Cutter Name Role Phone Victorina Waggoner Primary Care Provider Reason for Visit * Reason Onset Date Comments Test Results 10/05/2023 Encounter Details Date Type Department Care Team (Late st Contact Info) Description 10/05/2023 Telephone Gynecology/Obstetrics Stephen Rubio [address] [place] [address] Keesha Macdonald PA-C [address] [place] [address] Test Results Allergies Active Allergy Reactions Criticality Noted Date Comments Penicillins Other (Please comment) 02/02/2000 Rash Does not remember severity of reaction d/t being very young documented as of this encounter (statuses as of 10/11/2023) Medications Medication Sig Dispensed Refills Start Date [...] as of this encounter (statuses as of 10/11/2023) Active Problems Problem Noted Date Diagnosed Date [...] this if it can be obtained at [facility]. Elevated TSH 07/01/2022 Allergic conjunctivitis 10/28/2016 Allergic rhinitis 10/28/2013 Estimated Date of Delivery Comme nts Yes 12/24/2023 Based on Ultraso und documented as of this encounter (statuses as of 10/11/2023) Resolved Problems Problem Noted Date Diagnosed Date Resolved Date 13 weeks gestation of 06/22/2023 10/05/2023 intolerance to labor, delivered, current hospitalization 09/05/2022 09/09/2022 Status post delivery 09/04/2022 10/13/2022 Encounter for induction of labor 09/02/2022 09/09/2022 Group beta Strep positive 08/05/2022 Overview: Clindamycin Susceptible Penicillin G Susceptible Vancomycin Susceptible Encounter for ultrasound to assess growth 07/21/2022 09/09/2022 Overview: Referred to [facility] for "borderline large for gestational age [...] as of this encounter (statuses as of 10/11/2023) Immunizations Name Administration Dates Next Due DTaP Dipth/Tet/Acell Pertussis (Infanrix), Peds 06/20/2005 H1N1 2009 Influenza, IM 01/06/2009 HPV Vaccine, 4-Valent 12/02/2013 IPV - Polio Virus Vaccine (Inact) 06/20/2005 MMR - Measles/Mumps/Rubella Vaccine 06/20/2005 Meningococcal Conjugate Vacc ine (Menactra/Menveo) 02/01/2017,10/24/2011 PPD 01/21/2021,06/11/2018 Pneumococcal Conjugate Vacci ne, 20-valent ([id number]) 09/21/2021 Seasonal Influenza, PF, 6 M & above, IM , (FluLaval or Fluzone) 11/16/2018,10/28/2016 10/28/2017 Seasonal Influenza, Quadriva lent, No Preserve, IM 10/29/2015,10/30/2014 10/31/2015 Seasonal Influenza, Trivalen t, (IIV3), with Preserv, (Fluzone) 10/29/2013,11/15/2011,11/10/2010,11/06,12/07/2008,11/20/2006,01/05/20 06 10/29/2014 TDAP (age 10 and older)(Boostrix) 06/06/2022, [...] money to get more. Never true 08/16/2023 [place] Depression Scale Answer Date Recorded [place] Depression Scale Total 0 05/18/2023 The thought [...] encounter Miscellaneous Notes * Telephone Encounter - Valencia Mccracken LPN - 10/05/2023 12:20 PM EDT Patient notified. Please call her to schedule 3 hour glucose * Telephone Encounter - Keesha Macdonald PA-C - 10/05/2023 12:02 PM EDT Please let her know failed 1 hour gtt, needs 3 hour gtt. This time fasting. Please give instructions and assist with setting up appointment at lab. She was also slightly anemic by labs. Hgb 11.8. Should start once daily oral iron. Sent Rx to pharmacy, can reassess with CBC in 4 weeks. Can cause constipation and darken stools. documented in this encounter Plan of Treatment Upcoming Encounters Date Type Department Care Team (Late st Contact Info) Description 10/20/2023 11:45 AM EDT Office Visit Gynecology/Obstetrics Stephen Rubio [address] [place] [address] Keesha Macdonald PA-C [address] [place] [address] 2023 11:00 AM EDT Imaging Maternal Medicine [facility] [place] [phone] 11/30/2023 8:00 AM EDT Imaging Maternal Medicine ImagingGalina [address] [place] [phone] Health Maintenance Due Date Last Done Comments HPV (Gardasil) Vaccine (2 - 2-dose series) 06/02/2014 12/02/2013 Depression Screening 09/21/2022 09/21/2021 COVID-19 Vaccine (2022-2 4 season) 2023 02/11/2021, 01/21/2021 Influenza Vaccine (FLU [...] Diagnosis Abnormal glucose tolerance in mother complicating - Primary Abnormal maternal glucose tolerance, complicating , childbirth, or the puerperium, unspecified as to episode of care Antepartum anemia complicating Anemia, antepartum documented in [...] the patient have Health Care Power of Insulation Applicator? No * Full Code Date Activated Date [...] patient or by statute hierarchy) Care Teams Contact Lens Cutter Relationship Specialty Start Date End Date Victorina Waggoner CRNP [address] [place] [address] PCP - General Nurse Practitioner 03/05/21 documented as of this encounter
--- OUTSIDE RECORDS SUMMARY | 2023-12-02 22:06 | External Medical Summary | Summary of Care ---
Author Name Unknown Organization [facility] Address [address] [facility] [place] [address] Phone [phone] Care Team Providers Care Asphalt Machine Operator Name Role Phone Victorina Waggoner Primary Care Provider Reason for Visit * Reason Comments Return Visit Encounter Details Date Type Department Care Team (Late st Contact Info) Description 10/20/2023 2:30 PM EDT Office Visit Gynecology/Obstetric s Stephen Rubio [address] [place] [address] Adan Robins MD [address] [place] [address] Obesity in , antepartum*; Maternal asthma complicating ; H/O macrosomia in in prior , currently ; Previous delivery, antepartum condition or complication; Short interval between pregnancies complicating , antepartum; Supervision of high-risk , unspecified trimester; Antepartum anemia complicating Allergies Active Allergy Reactions Criticality Noted Date Comments Penicillins Other (Please comment) 02/02/2000 Rash Does not remember severity of reaction d/t being very young documented as of this encounter (statuses as of 10/20/2023) Medications Medication Sig Dispensed Refills Start Date [...] as of this encounter (statuses as of 10/20/2023) Active Problems Problem Noted Date Diagnosed Date [...] this if it can be obtained at [facility]. Elevated TSH 07/01/2022 Allergic conjunctivitis 10/28/2016 Allergic rhinitis 10/28/2013 Estimated Date of Delivery Comme nts Yes 12/24/2023 Based on Ultraso und documented as of this encounter (statuses as of 10/20/2023) Resolved Problems Problem Noted Date Diagnosed Date Resolved Date 13 weeks gestation of 06/22/2023 10/05/2023 intolerance to labor, delivered, current hospitalization 09/05/2022 09/09/2022 Status post delivery 09/04/2022 10/13/2022 Encounter for induction of labor 09/02/2022 09/09/2022 Group beta Strep positive 08/05/2022 Overview: Clindamycin Susceptible Penicillin G Susceptible Vancomycin Susceptible Encounter for ultrasound to assess growth 07/21/2022 09/09/2022 Overview: Referred to [facility] for "borderline large for gestational [...] as of this encounter (statuses as of 10/20/2023) Immunizations Name Administration Dates Next Due DTaP Dipth/Tet/Acell Pertussis (Infanrix), Peds 06/20/2005 H1N1 2009 Influenza, IM 01/06/2009 HPV Vaccine, 4-Valent 12/02/2013 IPV - Polio Virus Vaccine (Inact) 06/20/2005 MMR - Measles/Mumps/Rubella Vaccine 06/20/2005 Meningococcal Conjugate Vacc ine (Menactra/Menveo) 02/01/2017,10/24/2011 PPD 01/21/2021,06/11/2018 Pneumococcal Conjugate Vacci ne, 20-valent ([id number]) 09/21/2021 Seasonal Influenza, PF, 6 M & [...] money to get more. Never true 08/16/2023 [place] Depression Scale Answer Date Recorded [place] Depression Scale Total 0 05/18/2023 The thought [...] Sign Reading Time Taken Comments Blood Pressure 106/60 10/20/2023 2:31 PM EDT Pulse - - Temperature - - Respiratory Rate - - Oxygen Saturation - - Inhaled Oxygen Concentration - - Weight - - Height 182.9 cm (6' 0.01") 10/20/2023 2:31 PM ED T Body Mass Index - - documented in this encounter Progress Notes * Fatimah Flores LPN - 10/20/2023 2:35 PM EDT 30w5d Denies any concerns documented in this encounter Plan of Treatment Upcoming Encounters Date Type Department Care Team (Late st Contact Info) Description 2023 8:15 AM EDT Office Visit Gynecology/Obstetrics Stephen Rubio [address] [place] [address] BackerTara CRNP [address] [place] [address] 2023 11:00 AM EDT Imaging [place] [phone] 11/30/2023 8:00 AM EDT Imaging Maternal Medicine ImagingGalina [address] [place] [phone] Health Maintenance Due Date Last Done Comments [...] to episode of care H/O macrosomia in in prior , currently with other poor obstetric history Previous delivery, antepartum condition or complication Short interval between pregnancies complicating , antepartum Supervision of other high-risk Supervision of high-risk , unspecified trimester Antepartum anemia complicating Anemia, antepartum documented in [...] the patient have Health Care Power of Sidewalk Repairer? No * Full Code Date Activated Date [...] patient or by statute hierarchy) Care Teams Asphalt Machine Operator Relationship Specialty Start Date End Date Victorina Waggoner CRNP [address] [place] [address] PCP - General Nurse Practitioner 03/05/21 documented as of this encounter
--- OUTSIDE RECORDS SUMMARY | 2023-12-02 22:06 | External Medical Summary | Summary of Care ---
Author Name Unknown Organization [facility] Address [address] [facility] [place] [address] Phone [phone] Care Team Providers Care Station Engineer Name Role Phone Victorina Waggoner Primary Care Provider Reason for Visit * Reason Comments Return Visit Encounter Details Date Type Department Care Team (Late st Contact Info) Description 2023 8:15 AM EDT Office Visit Gynecology/Obstetric s Stephen Rubio [address] [place] [address] BackTara collins CRNP [address] [place] [address] Supervision of high-risk , unspecified trimester*; Obesity in , antepartum; Maternal asthma complicating ; H/O macrosomia in infant in prior , currently ; Previous delivery, antepartum condition or complication; Short interval between pregnancies complicating , antepartum; Antepartum anemia complicating Allergies Active Allergy Reactions Criticality Noted Date Comments Penicillins Other (Please comment) 02/02/2000 Rash Does not remember severity of reaction d/t being very young documented as of this encounter (statuses as of 2023) Medications Medication Sig Dispensed Refills Start Date [...] as of this encounter (statuses as of 2023) Active Problems Problem Noted Date Diagnosed Date [...] this if it can be obtained at [facility]. Elevated TSH 07/01/2022 Allergic conjunctivitis 10/28/2016 Allergic rhinitis 10/28/2013 Estimated Date of Delivery Comme nts Yes 12/24/2023 Based on Ultraso und documented as of this encounter (statuses as of 2023) Resolved Problems Problem Noted Date Diagnosed Date Resolved Date 13 weeks gestation of 06/22/2023 10/05/2023 intolerance to labor, delivered, current hospitalization 09/05/2022 09/09/2022 Status post delivery 09/04/2022 10/13/2022 Encounter for induction of labor 09/02/2022 09/09/2022 Group beta Strep positive 08/05/2022 Overview: Clindamycin Susceptible Penicillin G Susceptible Vancomycin Susceptible Encounter for ultrasound to assess growth 07/21/2022 09/09/2022 Overview: Referred to [facility] for "borderline large for gestational age abdominal [...] as of this encounter (statuses as of 2023) Immunizations Name Administration Dates Next Due DTaP Dipth/Tet/Acell Pertussis (Infanrix), Peds 06/20/2005 H1N1 2009 Influenza, IM 01/06/2009 HPV Vaccine, 4-Valent 12/02/2013 IPV - Polio Virus Vaccine (Inact) 06/20/2005 MMR - Measles/Mumps/Rubella Vaccine 06/20/2005 Meningococcal Conjugate Vacc ine (Menactra/Menveo) 02/01/2017,10/24/2011 PPD 01/21/2021,06/11/2018 Pneumococcal Conjugate Vacci ne, 20-valent ([id number]) 09/21/2021 Seasonal Influenza, PF, 6 M & [...] money to get more. Never true 08/16/2023 [place] Depression Scale Answer Date Recorded [place] Depression Scale Total 0 05/18/2023 The thought [...] Sign Reading Time Taken Comments Blood Pressure 104/64 2023 8:24 AM EDT Pulse - - Temperature - - Respiratory Rate - - Oxygen Saturation - - Inhaled Oxygen Concentration - - Weight 134.7 kg (297 lb) 2023 8:24 AM EDT Height - - Body Mass Index 40.27 10/20/2023 2:31 PM EDT documented in this encounter Progress Notes * Tara Liao CRNP - 2023 8:23 AM EDT 32w4d Good movement. No ctx, leaking/bleeding. Planning to restart OCPs for contraception. Seeing MFM later today for growth. Repeat CBC today. 2 week return LENORE Kapoor documented in this encounter Plan of Treatment Upcoming Encounters Date Type Department Care Team (Late st Contact Info) Description 2023 8:50 AM EDT [facility] [address] [place] [phone] Junior Rubio [facility] [place] [address] Antepartum anemia complicating 2023 11:00 AM EDT Imaging Maternal Medicine Imaging, Galina [address] [place] [phone] 2023 11:00 AM EDT Office Visit National Account Manager Obstetrics Maternal Medicine, [place]ina [address] [place] [address] Michelle Arellano, DO [address] [place] [address] 11/15/2023 8:00 AM EDT Office Visit Gynecology/Obstetric s Stephen [facility] [place] [address] Zuly Medina CRNP [address] [place] [address] 11/30/2023 8:00 AM EDT Imaging Maternal Medicine Imaging, Galina Rubio [address] [place] [phone] 12/04/2023 8:30 AM EDT Office Visit Gynecology/Obstetric s Stephen Rubio [address] [place] [address] Adan Robins MD [address] [place] [address] 12/26/2023 10:30 AM EST Office Visit Gynecology/Obstetric s Stephen Rubio [address] [place] [address] Tara Liao CRNP [address] [place] [address] Pending Results Name Type Priority Associated Diagnoses Date /Time CBC WITH WBC DIFFERENTIAL AND ANEMIA REFLEX WORKUP Lab Routine Antepartum anemia complicating 2023 8:38 AM EDT Scheduled Orders Name Type Priority Associated Diagnoses Orde r Schedule CBC WITH WBC DIFFERENTIAL AND ANEMIA REFLEX WORKUP Lab Routine Antepartum anemia complicating Expected: 2023, Expires: 11/01/2024 Health Maintenance Due Date Last Done Comments [...] Visit Diagnoses Diagnosis Supervision of high-risk , unspecified trimester- Primary Obesity in , antepartum Obesity [...] other high-risk Antepartum anemia complicating Anemia, antepartum Antepartum anemia complicating Anemia, antepartum documented in [...] the patient have Health Care Power of Automobile Brakes Bonder? No * Full Code Date Activated Date [...] patient or by statute hierarchy) Care Teams Station Engineer Relationship Specialty Start Date End Date Victorina Waggoner CRNP [address] [place] [address] PCP - General Nurse Practitioner 03/05/21 documented as of this encounter
--- OUTSIDE RECORDS SUMMARY | 2023-12-02 22:06 | External Medical Summary | Summary of Care ---
Author Name Unknown Organization [facility] Address [address] [place] [address] Phone [phone] Care Team Providers Care Sorter Upholstery Parts Name Role Phone Victorina Waggoner Primary Care Provider Encounter Details Date Type Department Care Team (Late st Contact Info) Description 2023 11:00 AM EDT Office Visit Estate Agent Obstetrics Maternal Medicine, [address] [address] Michelle Arellano, DO [address] [place] [address] Obesity in , antepartum*; Ultrasound for screening for growth restriction; 32 weeks gestation of Allergies Active Allergy Reactions Criticality Noted Date Comments Penicillins Other (Please comment) 02/02/2000 Rash Does not remember severity of reaction d/t being very young documented as of this encounter (statuses as of 11/03/2023) Medications Medication Sig Dispensed Refills Start Date [...] as of this encounter (statuses as of 11/03/2023) Active Problems Problem Noted Date Diagnosed Date [...] this if it can be obtained at [facility]. Elevated TSH 07/01/2022 Allergic conjunctivitis 10/28/2016 Allergic rhinitis 10/28/2013 Estimated Date of Delivery Comme nts Yes 12/24/2023 Based on Ultraso und documented as of this encounter (statuses as of 11/03/2023) Resolved Problems Problem Noted Date Diagnosed Date Resolved Date 13 weeks gestation of 06/22/2023 10/05/2023 intolerance to labor, delivered, current hospitalization 09/05/2022 09/09/2022 Status post delivery 09/04/2022 10/13/2022 Encounter for induction of labor 09/02/2022 09/09/2022 Group beta Strep positive 08/05/2022 Overview: Clindamycin Susceptible Penicillin G Susceptible Vancomycin Susceptible Encounter for ultrasound to assess growth 07/21/2022 09/09/2022 Overview: Referred to [facility] for "borderline large for gestational age [...] as of this encounter (statuses as of 11/03/2023) Immunizations Name Administration Dates Next Due DTaP Dipth/Tet/Acell Pertussis (Infanrix), Peds 06/20/2005,06/04/2001,06/01/2000,0208/2000,01/05/2000 H1N1 2009 Influenza, IM 01/06/2009 HIB PRP-T, 4 Dose, PF, IM (H iberix, ActHib) 06/04/2001,06/01/2000,03/15/2000,12/08 HPV Vaccine, 4-Valent 12/02/2013 Hepatitis B, 0-19 yrs 08/10/2000,1999,10/08 IPV - Polio Virus Vaccine (Inact) 2005,06/01/2000,03/15/2000,12/08 MMR - Measles/Mumps/Rubella Vaccine 06/20/2005,0 02/20/2001 Meningococcal Conjugate Vacc ine (Menactra/Menveo) 02/01/2017,10/24/2011 PPD 01/21/2021,06/11/2018 Pneumococcal Conjugate Vacci ne, 20-valent ([id number]) 09/21/2021 Pneumococcal Conjugate Vacci ne, 7 Valent 06/01/2000,03/15/2000,01/05/2000 Seasonal Influenza, PF, 6 M & above, IM , (FluLaval or Fluzone) 11/16/2018,10/28/2016 10/28/2017 Seasonal Influenza, Quadriva lent, No Preserve, IM 10/29/2015,10/30/2014 10/31/2015 Seasonal Influenza, Trivalen t, (IIV3), with Preserv, (Fluzone) 10/29/2013,11/15/2011,11/10/2010,11/06,12/07/2008,11/20/2006,01/05/20 06,02/09/2005,01/03/2005 10/29/2014 TDAP (age 10 and older)(Boostrix) 06/06/2022,09/ TDAP, Age 7 and older, IM (Adacel) [...] money to get more. Never true 08/16/2023 [place] Depression Scale Answer Date Recorded [place] Depression Scale Total 0 2023 The thought [...] Progress Notes * Michelle Arellano DO - 2023 11:36 AM EDT Janey presented today at 32w4d for an ultrasound for the following indications: Obesity in , antepartum Ultrasound for screening for growth restriction 32 weeks gestation of Ultrasound summary: Patient presented at 32w 4d for growth assessment. Normal growth with EFW 1971 g at 36%ile. Normal AURORA at 15.5 cm. Cephalic presentation. I reviewed the ultrasound images. Janey was given the opportunity to meet with me if she had anyquestions. Please refer to the ultrasound report for additional details about today's ultrasound examination. RECOMMENDATIONS: Recommend follow up ultrasound with MFM in 4-6 weeks for growth secondary to above indications. See prior formal MFM consultation note. Thank you for allowing us to participate in the care of this patient. Please call with any questions. Michelle Arellano DO 2023 11:36 AM documented in this encounter Plan of Treatment Upcoming Encounters Date Type Department Care Team (Late st Contact Info) Description 11/15/2023 8:00 AM EDT Office Visit Gynecology/Obstetrics Stephen Rubio [address] [place] [address] Zuly Medina CRNP [address] [place] [address] 11/30/2023 8:00 AM EDT Imaging Maternal Medicine Imaging, Galina Rubio [address] [place] [phone] 12/04/2023 8:30 AM EDT Office Visit Gynecology/Obstetrics [facility] [address] [place] [address] Adan Robins MD [address] [place] [address] 12/26/2023 10:30 AM EST Office Visit Gynecology/Obstetrics [facility] [address] [place] [address] BackerTara CRNP [address] [place] [address] Health Maintenance Due Date Last Done Comments [...] restriction screening for growth retardation using ultrasonics 32 weeks gestation of state, incidental documented in [...] the patient have Health Care Power of Credit Risk Analytics Manager? No * Full Code Date Activated Date [...] patient or by statute hierarchy) Care Teams Sorter Upholstery Parts Relationship Specialty Start Date End Date Victorina Waggoner CRNP [address] [place] [address] PCP - General Nurse Practitioner 03/05/21 documented as of this encounter
--- OUTSIDE RECORDS SUMMARY | 2023-12-02 22:06 | External Medical Summary ---
Author Name Unknown Address Unknown Organization [id number]:LABORATORY [facility] [place] - [address] [place] [address] Laboratory Report Ordering Provider Test Date Status GRISELDABACKER 2023 08:38:21 Final Observation Date Value Abnormality Reference (Units ) Status WBC, Total 2023 08:38:21 11.75 Above high normal 4 .00-10.80 (K/uL) Final RBC 2023 08:38:21 4.17 3.85-5.15 (M/uL) Final Hemoglobin 2023 08:38:21 12.2 12.0-15.3 (g/dL) Final Anemia reflex testing trigge rs on a HGB < 12.0 for Females and HGB < 13.0 for Males in accordance with the WHO Anemia Guidelines
Anemia reflex testing triggers on a HGB < 12.0 for Females and HGB < 13.0 for Males in accordance with the WHO Anemia Guidelines HCT 2023 08:38:21 38.8 36.0-45.2 (%) Final MCV 2023 08:38:21 93.0 81.5-97.5 (fL) Final MCH 2023 08:38:21 29.3 27.0-34.0 (pg) Final MCHC 2023 08:38:21 31.4 32.0-36.0 (g/dL) Final RDW 2023 08:38:21 15.2 11.5-15.5 (%) Final Platelets 2023 08:38:21 203 140-400 (K /uL) Final MPV 2023 08:38:21 11.1 6.6-11.1 ( fL) Final Nucleated erythrocytes/100 leukocytes [Ratio] in Blood by Automated count 2023 08:38:21 0 <=0 (/100 WBCs) [facility] Performing Location LABORATORY [facility] - [address] [facility] [address]
--- OUTSIDE RECORDS SUMMARY | 2023-12-02 22:06 | External Medical Summary ---
Author Name Unknown Address Unknown Organization [id number]:LABORATORY [facility] [place] - [address] [facility] [address] Laboratory Report Ordering Provider Test Date Status KEVIN VILLALOBOS 2023 08:38:21 Final Observation Date Value Abnormality Reference (Units ) Status SYNC LEUKOCYTES IN BLOOD BY AUTOMATED COUNT 2023 08:38:21 11.75 Above high normal 4.00-10.80 (K/uL) Final Segs 2023 08:38:21 74.8 40.0-75.0 (%) Final Lymphs % 2023 08:38:21 19.5 18.0-42.0 (%) Final Monos 2023 08:38:21 3.1 1.0-11.0 (%) Final Eosinophils 2023 08:38:21 1.5 0.0-6.0 (%) Final Basos 2023 08:38:21 0.4 0.0-2.0 (%) Final Immature Granulocyte, Percent 2023 08:38:21 0.7 0.0-2.0 (%) Final Absolute Segs 2023 08:38:21 8.78 Above high normal 1.80-7.70 (K/uL) Final Lymphs, absolute 2023 08:38:21 2.29 1.00-4.80 (K/ul) Final Monos, Abs 2023 08:38:21 0.37 0.00-1.10 (K/uL) Final Eos, Abs 2023 08:38:21 0.18 0.00-0.70 (K/uL) Final Basos, Abs 2023 08:38:21 0.05 0.00-0.20 (K/uL) Final Immature Granulocytes, Number 2023 08:38:21 0.08 0.00-0.20 (K/uL) Final Performing Location LABORATORY [facility] [place] - [address] [facility] [address]
--- OUTSIDE RECORDS SUMMARY | 2023-12-02 22:06 | External Medical Summary | Summary of Care ---
Author Name Unknown Organization [facility] Address [address] [facility] [place] [address] Phone [phone] Care Team Providers Care Tag Meter Operator Name Role Phone Victorina Waggoner Primary Care Provider Reason for Visit * Reason Comments Return Visit Encounter Details Date Type Department Care Team (Late st Contact Info) Description 11/17/2023 2:30 PM EDT Office Visit Gynecology/Obstetric s Stephen Rubio [address] [place] [address] Zuly Medina CRNP [address] [place] [address] Encounter for supervision of other normal in third trimester*; Obesity in , antepartum; [...] as of this encounter (statuses as of 11/17/2023) Medications Medication Sig Dispensed Refills Start Date [...] as of this encounter (statuses as of 11/17/2023) Active Problems Problem Noted Date Diagnosed Date [...] this if it can be obtained at [facility]. Elevated TSH 07/01/2022 Allergic conjunctivitis 10/28/2016 Allergic rhinitis 10/28/2013 Estimated Date of Delivery Comme nts Yes 12/24/2023 Based on Ultraso und documented as of this encounter (statuses as of 11/17/2023) Resolved Problems Problem Noted Date Diagnosed Date Resolved Date 13 weeks gestation of 06/22/2023 10/05/2023 intolerance to labor, delivered, current hospitalization 09/05/2022 09/09/2022 Status post delivery 09/04/2022 10/13/2022 Encounter for induction of labor 09/02/2022 09/09/2022 Group beta Strep positive 08/05/2022 Overview: Clindamycin Susceptible Penicillin G Susceptible Vancomycin Susceptible Encounter for ultrasound to assess growth 07/21/2022 09/09/2022 Overview: Referred to [facility] for "borderline large for gestational age [...] as of this encounter (statuses as of 11/17/2023) Immunizations Name Administration Dates Next Due DTaP Dipth/Tet/Acell Pertussis (Infanrix), Peds 06/20/2005 H1N1 2009 Influenza, IM 01/06/2009 HPV Vaccine, 4-Valent 12/02/2013 IPV - Polio Virus Vaccine (Inact) 06/20/2005 MMR - Measles/Mumps/Rubella Vaccine 06/20/2005 Meningococcal Conjugate Vacc ine (Menactra/Menveo) 02/01/2017,10/24/2011 PPD 01/21/2021,06/11/2018 Pneumococcal Conjugate Vacci ne, 20-valent ([id number]) 09/21/2021 RSV Vac., Bivalent, Perfusio n F, [...] money to get more. Never true 08/16/2023 [place] Depression Scale Answer Date Recorded [place] Depression Scale Total 0 2023 The thought [...] Sign Reading Time Taken Comments Blood Pressure 96/64 11/17/2023 1:34 PM EDT Pulse - - Temperature 36.7 C (98 F) 11/17/2023 1:34 PM EDT Respiratory Rate - - Oxygen Saturation - - Inhaled Oxygen Concentration - - Weight 137.9 kg (304 lb) 11/17/2023 1:34 PM EDT Height 182.9 cm (6' 0.01") 11/17/2023 1:34 PM ED T Body Mass Index 41.22 11/17/2023 1:34 PM EDT documented in this encounter Progress Notes * Zuly Medina CRNP - 11/17/2023 2:16 PM EDT 34w5d Here for acute visit. Has had diarrhea for several days, though now has stopped. Feeling rectal pressure for the past several hours instead. This morning at work she had blurry vision. Thought it was her contacts,but doesn't seem to be. Having a headache as well. Has been having pain at pubic symphysis for weeks. Today has had some shooting pains up vagina as well. She reports baby is moving well; less than usual but still adequate movement. Denies bleeding, LOF,contractions. Urine dip ok. Cervical check done- cervix C/T/L. Reassured pt. Advised to rest this weekend. Call with any additional concerns. LENORE Eller documented in this encounter Nursing Notes * Monie Galvan LPN - 11/17/2023 2:01 PM EDT 34w5d Increased rectal pressure. Cramping. Blurred vision, headache. documented in this encounter Plan of Treatment Upcoming Encounters Date Type Department Care Team (Late st Contact Info) Description 11/30/2023 8:00 AM EDT Imaging Maternal Medicine Imaging, Galina [address] [place] [phone] 11/30/2023 9:30 AM EDT Office Visit Gynecology/Obstetrics Stephen [address] [place] [address] Lovely Dumont PA-C [address] [place] [address] 12/04/2023 8:30 AM EDT Office Visit Gynecology/Obstetrics Stephen Rubio [address] [place] [address] Adan Robins MD [address] [place] [address] 12/14/2023 3:15 PM EST Office Visit Gynecology/Obstetrics Stephen Rubio [address] [place] [address] Lovely Dumont PA-C [address] [place] [address] Prema Rubio Stress Tests Galina [address] [place] [address] 12/26/2023 10:30 AM EST Office Visit Gynecology/Obstetrics Stephen Rubio [address] [place] [address] Tara Liao CRNP [address] [place] [address] Health Maintenance Due Date Last Done Comments [...] Not on filedocumented as of this encounter Procedures Procedure Name Priority Date/Time Associated Diagnosis Comments URINALYSIS OBSTETRICS, POINT OF CARE Routine 11/17/2023 2:09 PM EDT Encounter for supervision of other normal in third trimester documented in this encounter Results * (ABNORMAL) URINALYSIS OBSTETRICS, POINT OF CARE (11/17/2023 2:09 PM EDT) Color, Urine Yellow Light Yellow, Yellow 11/17/2023 2:11 PM EDT LAB[facility] [place] [facility] Clarity, Urine Clear Clear 11/17/2023 2:11 PM EDT [facility] [place] [facility] Glucose, Urine Negative Negative mg/dL 11/17/2023 2:11 PM EDT LAB[facility] [place] [facility] Bilirubin, Urine Negative Negative 11/17/2023 2:11 PM EDT [facility] [place] [facility] Ketone, Urine Negative Negative mg/dL 11/17/2023 2:11 PM EDT [facility] [place] [facility] Specific [place], Urine 1.015 1.003 - 1.030 11/17/2023 2:11 PM EDT [facility] [place] [facility] Blood, Urine Negative Negative 11/17/2023 2:11 PM EDT [facility] [place] [facility] pH, Urine 7.0 5.0, 5.5, 6.0, 6.5, 7.0, 7.5 units 11/17/2023 2:11 PM EDT [facility] [place] [facility] Protein, Urine Negative Negative mg/dL 11/17/2023 2:11 PM EDT [facility] [place] [facility] Urobilinogen, Urine 0.2 0.2, 1.0 mg/dL 11/17/2023 2:11 PM EDT [facility] [place] [facility] Nitrite, Urine Negative Negative 11/17/2023 2:11 PM EDT [facility] [place] [facility] Esterase, Urine Trace(A) Negative 11/17/2023 2:11 PM EDT [facility] [place] [facility] Urine 11/17/2023 2:09 PM EDT 11/17/2023 2:11 PM EDT Zuly [facility] POINT OF CARE TE ST DOCKED DEVICE UNSOLICITED RESULTS [facility] [place] [facility] [address] [place] [address] documented in this encounter Visit Diagnoses Diagnosis Encounter for supervision of other normal in third trimester- Primary Obesity in , [...] the patient have Health Care Power of Chha? No * Full Code Date Activated Date [...] patient or by statute hierarchy) Care Teams Tag Meter Operator Relationship Specialty Start Date End Date Victorina Waggoenr CRNP [address] [place] [address] PCP - General Nurse Practitioner 03/05/21 documented as of this encounter
--- OUTSIDE RECORDS SUMMARY | 2023-12-02 22:06 | External Medical Summary | Summary of Care ---
Author Name Unknown Organization [facility] Address [address] [place] [address] Phone [phone] Care Team Providers Care Polyethylene Bag Machine Operator Name Role Phone Victorina Waggoner Primary Care Provider Encounter Details Date Type Department Care Team (Late st Contact Info) Description 2023 11:00 AM EDT Office Visit Hospital Admissions Clerk Obstetrics Maternal Medicine, [address] [address] Michelle Arellano, DO [address] [place] [address] Obesity in , antepartum*; Ultrasound [...] this if [facility]. Elevated TSH 07/01/2022 Allergic conjunctivitis 10/28/2016 [...] PPD 01/21/2021,06/11/2018 Pneumococcal Conjugate Vacci ne, 20-valent ([id number]) 09/21/2021 Seasonal Influenza, PF, 6 M & [...] money to get more. Never true 08/16/2023 [place] Depression Scale Answer Date Recorded [place] Depression Scale Total 0 05/18/2023 The thought [...] No 08/16/2023 Does the household have a [facility] source of income? (Household - for ages [...] of this encounter Progress Notes * Michelle Arellano, - 2023 11:36 AM EDT Janey presented [...] Gynecology/Obstetrics Stephen Rubio [address] [place] [address] Zuly Medina CRNP [address] [place] [address] 11/30/2023 8:00 AM EDT Imaging Maternal Medicine Imaging, Galina Rubio [address] [place] [phone] 12/04/2023 8:30 AM EDT Office Visit Gynecology/Obstetrics Stephen Rubio [address] [place] [address] Adan Robins MD [address] [place] [address] 12/26/2023 10:30 AM EST Office Visit Gynecology/Obstetrics Stephen Rubio [address] [place] [address] Tara Liao CRNP [address] [place] [address] Health Maintenance Due Date Last Done Comments [...] the patient have Health Care Power of Dial Marker? No * Full Code Date Activated Date [...] patient or by statute hierarchy) Care Teams Polyethylene Bag Machine Operator Relationship Specialty Start Date End Date Victorina Waggoner CRNP [address] [place] [address] PCP - General Nurse Practitioner 03/05/21 documented as of this encounter
--- OUTSIDE RECORDS SUMMARY | 2023-12-02 22:06 | External Medical Summary ---
Author Name Unknown Address Unknown Organization [id number]:LABORATORY [facility] [place] [facility] - [address] [place] [address] Laboratory Report Ordering Provider Test Date Status CAROLINA MUÑIZ 11/17/2023 14:09:00 Final Observation Date Value Abnormality Reference (Units ) Status Color of Urine by Auto 11/17/2023 14:09:00 Yellow Light Yellow, Yellow Final Clarity, Urine 11/17/2023 14:09:00 Clear Clear Final Glucose [Mass/volume] in Urine by Automated test strip 11/17/2023 14:09:00 Negative Negative (mg/dL) Final Bilirubin.total [Presence] in Urine by Automated test strip 11/17/2023 14:09:00 Negative Negative Final Ketones [Mass/volume] in Urine by Automated test strip 11/17/2023 14:09:00 Negative Negative (mg/dL) Final Specific gravity, Urine 11/17/2023 14:09:00 1.015 1.003-1.030 Final Hemoglobin [Presence] in Urine by Automated test strip 11/17/2023 14:09:00 Negative Negative Final pH, Urine 11/17/2023 14:09:00 7.0 5.0, 5.5, 6.0, 6.5, 7.0, 7.5 (units) Final Protein [Mass/volume] in Urine by Automated test strip 11/17/2023 14:09:00 Negative Negative (mg/dL) Final Urobilinogen, Urine 11/17/2023 14:09:00 0.2 0.2, 1.0 (mg/dL) Final Nitrite [Presence] in Urine by Automated test strip 11/17/2023 14:09:00 Negative Negative Final Leukocyte esterase [Presence] in Urine by Automated test strip 11/17/2023 14:09:00 Trace Abnormal Negative Final Performing Location LAB[facility]ATORY [facility] [place] [facility] 0 - [address] [place] [address]
--- OUTSIDE RECORDS SUMMARY | 2023-12-02 22:06 | External Medical Summary | Summary of Care ---
Author Name Unknown Organization [facility] Address [address] [place] [facility] [place] [address] Phone [phone] Care Team Providers Care Welding Machine Operator Gas Name Role Phone Victorina Waggoner Primary Care Provider Reason for Visit * Reason Comments Outpatient Testing Encounter Details Date Type Department Care Team (Late st Contact Info) Description 10/06/2023 9:00 AM EDT Laboratory Laboratory, [place] [address] [place] [address] [place], Laboratory [address] [place], [place] [phone] Abnormal glucose tolerance in mother complicating Allergies [...] this if it can be obtained at [facility]. Elevated TSH 07/01/2022 Allergic conjunctivitis 10/28/2016 [...] assess growth 07/21/2022 09/09/2022 Overview: Referred to [facility] for "borderline large for gestational age abdominal [...] utilizing JEIMY from initial scan. 2. Normal UARORA 3. Vertex presentation" Of note: patient is [...] PPD 01/21/2021,06/11/2018 Pneumococcal Conjugate Vacci ne, 20-valent ([id number]) 09/21/2021 Seasonal Influenza, PF, 6 M & [...] money to get more. Never true 08/16/2023 [place] Depression Scale Answer Date Recorded [place] Depression Scale Total 0 05/18/2023 The thought [...] No 08/16/2023 Does the household have a [facility] source [facility] income? (Household - for ages [...] EDT Office Visit Gynecology/Obstetrics Stephen Rubio [address] [facility] [place] [address] Keesha Macdonald PA-C [address] [place] [address] 2023 11:00 AM EDT Imaging Maternal Medicine Imaging, Galina [address] [place] [phone] 11/30/2023 8:00 AM EDT Imaging Maternal Medicine Imaging, [place]ina [address] [place] [phone] Pending Results Name Type Priority Associated Diagnoses Date /Time GESTATIONAL GLUCOSE TOLERANCE, 3 HOUR Lab Routine Abnormal glucose tolerance in mother complicating 10/06/2023 9:09 AM EDT 100-G GESTATIONAL GLUCOSE, FASTING Lab Routine Abnormal glucose tolerance in mother complicating 10/06/2023 9:09 AM EDT Scheduled Orders Name Type Priority Associated Diagnoses Orde r Schedule 100-G GESTATIONAL GLUCOSE, 1 HOUR Lab Routine Abnormal glucose tolerance in mother complicating Ordered: 10/06/2023 Health Maintenance Due Date Last Done Comments [...] Completed 08/10/2000, 1999, 1999 MENINGOCOCCAL (MENACTRA/MENVEO) Completed , 10/24/2011 Pneumococcal Vaccine: Pediat rics (0 to [...] the patient have Health Care Power of Button Decorating Machine Operator? No * Full Code Date Activated [...] patient or by statute hierarchy) Care Teams Welding Machine Operator Gas Relationship Specialty Start Date End Date Victorina Waggoner CRNP [address] [place] [address] PCP - General Nurse Practitioner 03/05/21 documented as of this encounter
--- OUTSIDE RECORDS SUMMARY | 2023-12-02 22:06 | External Medical Summary | Summary of Care ---
Author Name Unknown Organization [facility] Address [address] [facility] [place] [address] Phone [phone] Care Team Providers Care Back Tufter Name Role Phone Victorina Waggoner Primary Care Provider Reason for Visit * Reason Comments Outpatient Testing Encounter Details Date Type Department Care Team (Late st Contact Info) Description 10/06/2023 9:00 AM EDT Laboratory Laboratory, [place] [address] [place] [address] [place], [facility] [address] [place], [place] [phone] Abnormal glucose tolerance in mother complicating Allergies [...] assess growth 07/21/2022 09/09/2022 Overview: Referred to [facility] for "borderline large for gestational age abdominal [...] PPD 01/21/2021,06/11/2018 Pneumococcal Conjugate Vacci ne, 20-valent ([id number]) 09/21/2021 Pneumococcal Conjugate Vacci ne, 7 Valent [...] money to get more. Never true 08/16/2023 [place] Depression Scale Answer Date Recorded [place] Depression Scale Total 0 05/18/2023 The thought [...] 10/20/2023 11:45 AM EDT Office Visit Gynecology/Obstetrics [place] [address] [place] [address] Keesha Macdonald PA-C [address] [place] [address] 2023 11:00 AM EDT Imaging Maternal Medicine Imaging, [place]ang Rubio [address] [place] [phone] 11/30/2023 8:00 AM EDT Imaging Maternal Medicine Imaging, Galina Rubio [address] [place] [phone] Pending Results Name Type Priority Associated Diagnoses [...] in mother complicating 10/06/2023 11:11 AM EDT Scheduled Orders Name Type Priority Associated Diagnoses Orde r Schedule 100-G GESTATIONAL GLUCOSE, 3 HOUR Lab Routine [...] the patient have Health Care Power of Care Management Associate? No * Full Code Date Activated Date [...] patient or by statute hierarchy) Care Teams Back Tufter Relationship Specialty Start Date End Date Victorina Waggoner CRNP [address] [place] [address] PCP - General Nurse Practitioner 03/05/21 documented as of this encounter
--- OUTSIDE RECORDS SUMMARY | 2023-12-02 22:06 | External Medical Summary | Summary of Care ---
Author Name Unknown Organization [facility] Address [address] [facility] [place] [address] Phone [phone] Care Team Providers Care Web Application Dev Specialist Name Role Phone Victorina Waggoner Primary Care Provider Reason for Visit * Reason Comments Outpatient Testing Encounter Details Date Type Department Care Team (Late st Contact Info) Description 10/06/2023 9:00 AM EDT Laboratory Laboratory, [place] [address] [place] [address] [place], Laboratory [address], [place] [id number] Abnormal glucose tolerance in mother complicating Allergies [...] this if it can be obtained at [facility]. Elevated TSH 07/01/2022 Allergic conjunctivitis 10/28/2016 [...] assess growth 07/21/2022 09/09/2022 Overview: Referred to [facility] for "borderline large for gestational age [...] PPD 01/21/2021,06/11/2018 Pneumococcal Conjugate Vacci ne, 20-valent ([id number]) 09/21/2021 Pneumococcal Conjugate Vacci ne, 7 Valent [...] money to get more. Never true 08/16/2023 [place] Depression Scale Answer Date Recorded [place] Depression Scale Total 0 05/18/2023 The thought [...] 11:45 AM EDT Office Visit Gynecology/Obstetrics Stephen Blanks [address] [place] [address] Keesha Macdonald PA-C [address] [place] [address] 2023 11:00 AM EDT Imaging Maternal Medicine Imaging, Galina Rubio [address] [place] [phone] 11/30/2023 8:00 AM EDT Imaging Maternal Medicine Imaging, Galina Rubio [facility] [address] [place] [phone] Pending Results Name Type Priority Associated Diagnoses Date /Time GESTATIONAL GLUCOSE TOLERANCE, 3 HOUR Lab Routine Abnormal glucose tolerance in mother complicating 10/06/2023 9:09 AM EDT 100-G GESTATIONAL GLUCOSE, FASTING Lab Routine Abnormal glucose tolerance in mother complicating 10/06/2023 9:09 AM EDT 100-G GESTATIONAL GLUCOSE, 1 HOUR Lab Routine Abnormal glucose tolerance in mother complicating 10/06/2023 10:10 AM EDT Scheduled Orders Name Type Priority Associated Diagnoses Orde r Schedule 100-G GESTATIONAL GLUCOSE, 2 HOUR Lab Routine Abnormal glucose tolerance in mother complicating Ordered: 10/06/2023 Health Maintenance Due Date Last Done Comments HPV (Gardasil) Vaccine (2 - 2-dose series) 06/02/2014 12/02/2013 Depression Screening 09/21/2022 09/21/2021 COVID-19 Vaccine (3 - 2023-2 4 season) 2022 02/11/2021, 01/21/2021 Influenza Vaccine [...] the patient have Health Care Power of Employment Supervisor? No * Full Code Date Activated Date Inactivated Comments 09/02/2022 5:18 PM 09/03/2022 5:55 PM This order r eflects the patients wishes and were consensually agreed upon. Question Answer Comments Discussion of Advance Directives occurred with: Patient Healthcare Agents on File Name Relationship Healthcare Agent Relationshi p Communication Mio Wildomar Spouse Health Care Repr esentative (appointed verbally by patient or by statute hierarchy) Care Teams Web Application Dev Specialist Relationship Specialty Start Date End Date Victorina Waggoner CRNP [address] [place] [address] PCP - General Nurse Practitioner 03/05/21 documented as of this encounter
--- OUTSIDE RECORDS SUMMARY | 2023-12-02 22:06 | External Medical Summary | Summary of Care ---
Author Name Unknown Organization [facility] Address [address] [facility] [place] [address] Phone [phone] Care Team Providers Care Surface Grinder Name Role Phone Victorina Waggoner Primary Care Provider Encounter Details Date Type Department Care Team (Late st Contact Info) Description 11/17/2023 Telephone Gynecology/Obstetrics [facility] [address] [place] [address] Lovely Dumont PA-C [address] [place], [place] [phone] Allergies Active Allergy Reactions Criticality Noted Date [...] this if it can be obtained at [facility]. Elevated TSH 07/01/2022 Allergic conjunctivitis [...] assess growth 07/21/2022 09/09/2022 Overview: Referred to [facility] for "borderline large for gestational age [...] PPD 01/21/2021,06/11/2018 Pneumococcal Conjugate Vacci ne, 20-valent ([id number]) 09/21/2021 RSV Vac., Bivalent, Perfusio n F, [...] money to get more. Never true 08/16/2023 [place] Depression Scale Answer Date Recorded [place] Depression Scale Total 0 2023 The thought [...] No 08/16/2023 Does the household have a [facility] rehabilitation hospitallar source of income? (Household - for [...] Telephone Encounter - Valencia Mccracken LPN - 11/17/2023 9:41 AM EDT Patient is eating and drinking normally. Patient agreeable. * Telephone Encounter - Monie Galvan LPN - 11/17/2023 9:19 AM EDT Reviewed with Dr Alejo- please confirm patient is eating and drinking normally. As long as she is, recommends BRAT diet, imodium, comfort measures, push fluids. If any fever/chills or unable to tolerate PO intake, needs to see pcp right away * Telephone Encounter - Roddy Ko RN - 11/17/2023 8:17 AM EDT Patient calling in with concerns of diarrhea x 3-4 days, having BMs 3-4 times a day, patient reports still urinating frequently. Patient reports bilateral hip and pelvic pain. Reports positive movement. Advised Brat diet for Diarrhea and to take tylenol and warm showers for hip and pelvic pain. Advised to call back if symptoms worsen. Please review and advise anything further. Thanks Roddy Ko RN documented in this encounter Plan of Treatment Upcoming Encounters Date Type Department Care Team (Late st Contact Info) Description 11/30/2023 8:00 AM EDT Imaging Maternal Medicine Imaging, [place] [phone] 11/30/2023 9:30 AM EDT Office Visit Gynecology/Obstetrics [place] [address] Lovely Dumont PA-C [address] [place] [address] [place] [address] 12/04/2023 8:30 AM EDT Office Visit Gynecology/[place] [address] Adan Robins MD [address] [place] [address] 12/14/2023 3:15 PM EST Office Visit Gynecology/Obstetrics Stephen Rubio [address] [facility] [place] [address] Lovely Dumont PA-C [address] [place] [address] [place] [address] Rubio, Non Stress Tests Galina [address] [place] [address] 12/26/2023 10:30 AM EST Office Visit Gynecology/Obstetrics Stephen Rubio [address] [place] [address] Tara Liao CRNP [address] [place] [address] Health Maintenance Due Date Last Done Comments [...] the patient have Health Care Power of Glass Selector? No * Full Code Date Activated Date Inactivated Comments 09/02/2022 5:18 PM 09/03/2022 5:55 PM This order r eflects the patients wishes and were consensually agreed upon. Question Answer Comments Discussion of Advance Directives occurred with: Patient Healthcare Agents on File Name Relationship Healthcare Agent Relationshi p Communication Mio Hartley Spouse Health Care Repr esentative (appointed verbally by patient or by statute hierarchy) Care Teams Surface Grinder Relationship Specialty Start Date End Date Victorina Waggoner CRNP [address] [place] [address] PCP - General Nurse Practitioner 03/05/21 documented as of this encounter
--- OUTSIDE RECORDS SUMMARY | 2023-12-02 22:07 | External Medical Summary ---
Author Name Unknown Address Unknown Organization [id number]:LABORATORY [facility] [place] - [address] [place] [address] Laboratory Report Ordering Provider Test Date Status ROLAND COLE 10/05/2023 08:52:55 Final Observation Date Value Abnormality Reference (Units ) Status Creatinine 10/05/2023 08:52:55 0.6 0.5-1.0 (mg/dL) Final Glomerular filtration rate/1.73 sq M.predicted [Volume Rate/Area] in Serum, Plasma or Blood by Creatinine-based formula (CKD-EPI) 10/05/2023 08:52:55 >90 >=60 (mL/min) Final eGFR is calculated based on the CKD-EPI 2020 equation. Performing Location LABORATORY [facility] [place] - [address] [place] [address]
--- OUTSIDE RECORDS SUMMARY | 2023-12-02 22:07 | External Medical Summary ---
Author Name Unknown Address Unknown Organization [id number]:LABORATORY [facility] - [address] [place] [address] Laboratory Report Ordering Provider Test Date Status ROLAND COLE 10/05/2023 08:52:55 Final Observation Date Value Abnormality Reference (Units ) Status Iron 10/05/2023 08:52:55 99 33-151 (ug /dL) Final Iron-binding capacity 10/05/2023 08:52:55 310 250-425 (ug/dL) Final Transferrin Sat % 10/05/2023 08:52:55 32 15 -55 (%) Final Performing Location LABORATORY [facility] - [address] [place] [address]
--- OUTSIDE RECORDS SUMMARY | 2023-12-02 22:07 | External Medical Summary ---
Author Name Unknown Address Unknown Organization [id number]:[facility] [place] [address] [facility] [address] Laboratory Report Ordering Provider Test Date Status ROLAND COLE 10/06/2023 09:09:12 Final Based on ACOG guideline, ges tational diabetes mellitus is diagnosed when any of the following is met:
Fasting is greater than or equal to 95 mg/dL
1 hour is greater than or equal to 180 mg/dL
2 hour is greater than or equal to 155 mg/dL
3 hour is greater than or equal to 140 mg/dL Observation Date Value Abnormality Reference (Units ) Status Glucose, fasting 10/06/2023 09:09:12 77 70- 94 (mg/dL) Final Performing Location [facility] [place] [address] [facility] [address]
--- OUTSIDE RECORDS SUMMARY | 2023-12-02 22:07 | External Medical Summary ---
Author Name Unknown Address Unknown Organization [id number][place] [facility] [place] [address] [facility] [facility] [address] [facility] [address] Laboratory Report Ordering Provider Test Date Status ROLAND COLE 10/05/2023 08:52:55 Final Observation Date Value Abnormality Reference (Units ) Status Treponema pallidum Ab [Presence] in Serum by Immunoassay 10/05/2023 08:52:55 Nonreactive Nonreactive Final No serologic evidence of syp hilis. No additional testing clinicially indicated at this time. Consider repeat testing in 2-4 weeks if acute or primary syphilis is suspected. Performing Location [place] [facility] [place] [address] [place] [address]
--- OUTSIDE RECORDS SUMMARY | 2023-12-02 22:07 | External Medical Summary | Summary of Care ---
Author Name Unknown Organization [facility] Address [address] [facility] [place] [address] Phone [phone] Care Team Providers Care Department Assistant Name Role Phone Victorina Waggoner Primary Care Provider Reason for Visit * Reason Comments Outpatient Testing Encounter Details Date Type Department Care Team (Late st Contact Info) Description 10/05/2023 7:50 AM EDT Laboratory Laboratory, [facility] [address] [facility] [place] [phone] RubioJunoir downing [facility] [address] [facility] [address] Supervision of high-risk , unspecified trimester Allergies Active Allergy Reactions Criticality Noted Date Comments Penicillins Other (Please comment) 02/02/2000 Rash Does not remember severity of reaction d/t being very young documented as of this encounter (statuses as of 10/05/2023) Medications Medication Sig Dispensed Refills Start Date [...] SEE ATTACHED FOR DETAILED DIRECTIONS 07/12/2023 Active documented as of this encounter (statuses as of 10/05/2023) Active Problems Problem Noted Date Diagnosed Date Supervision of high-risk , unspecified trimester 08/11/2023 Last Assessment & Plan: -LR Qnatal Acute maxillary sinusitis 06/22/2023 13 weeks gestation of 06/22/2023 Short interval between pregn ancies complicating [...] this if it can be obtained at [facility]. Elevated TSH 07/01/2022 Allergic conjunctivitis 10/28/2016 Allergic rhinitis 10/28/2013 Estimated Date of Delivery Comme nts Yes 12/24/2023 Based on Ultraso und documented as of this encounter (statuses as of 10/05/2023) Resolved Problems Problem Noted Date Diagnosed Date Resolved Date intolerance to labor, delivered, current hospitalization 09/05/2022 09/09/2022 Status post delivery 09/04/2022 10/13/2022 Encounter for induction of labor 09/02/2022 09/09/2022 Group beta Strep positive 08/05/2022 Overview: Clindamycin Susceptible Penicillin G Susceptible Vancomycin Susceptible Encounter for ultrasound to assess growth 07/21/2022 09/09/2022 Overview: Referred to [facility] for "borderline large for gestational age [...] consider repeat testing due to large AC. [facility] ultrasound scheduled on 08/08/2022 Last Assessment & [...] as of this encounter (statuses as of 10/05/2023) Immunizations Name Administration Dates Next Due DTaP Dipth/Tet/Acell Pertussis (Infanrix), Peds 06/20/2005,06/04/2001,06/01/2000,08/2000,01/05/2000 H1N1 2009 Influenza, IM 01/06/2009 HIB PRP-T, 4 Dose, PF, IM (H iberix, ActHib) 06/04/2001,06/01/2000,03/15/2000,12/08 HPV Vaccine, 4-Valent 12/02/2013 Hepatitis B, 0-19 yrs 08/10/2000,1999,10/08 IPV - Polio Virus Vaccine (Inact) 2005,06/01/2000,03/15/2000,12/08 MMR - Measles/Mumps/Rubella Vaccine 06/20/2005,0 02/20/2001 Meningococcal Conjugate Vacc ine (Menactra/Menveo) 02/01/2017,10/24/2011 PPD 01/21/2021,06/11/2018 Pneumococcal Conjugate Vacci ne, 20-valent ([id number]) 09/21/2021 Pneumococcal Conjugate Vacci ne, 7 Valent 06/01/2000,03/15/2000,01/05/2000 Seasonal Influenza, PF, 6 M & above, IM , (FluLaval or Fluzone) 11/16/2018,10/28/2016 10/28/2017 Seasonal Influenza, Quadriva lent, No Preserve, IM 10/29/2015,10/30/2014 10/31/2015 Seasonal Influenza, Split, I IV3, With Preserve, Inj 10/29/2013,11/15/2011,11/10/2010,11/06,12/07/2008,11/20/2006,01/05/20,02/09/2005,01/03/2005 10/29/2014 TDAP (age 10 and older)(Boostrix) 06/06/2022, Varicella Vaccine (Chicken Pox) 10/24/2011,02/20 documented as [...] money to get more. Never true 08/16/2023 [place] Depression Scale Answer Date Recorded [place] Depression Scale Total 0 05/18/2023 The thought [...] Team (Late st Contact Info) Description 10/05/2023 9:15 AM EDT Office Visit Gynecology/Obstetrics Stephen Rubio [address] [place] [address] Backer, LENORE Jasmine [address] [place] [address] Arrived 2023 11:00 AM EDT Imaging Maternal Medicine Imaging, Galina Rubio [address] [place] [phone] 11/30/2023 8:00 AM EDT Imaging Maternal Medicine Imaging, Galina Steele [place] [phone] Pending Results Name Type Priority Associated Diagnoses Date /Time 50-G GESTATIONAL GLUCOSE, 1 HOUR Lab Routine Supervision of high-risk , unspecified trimester 10/05/2023 8:52 AM EDT SYPHILIS ANTIBODY SCREEN WITH REFLEX TO RPR Lab Routine Supervision of high-risk , unspecified trimester 10/05/2023 8:52 AM EDT CBC WITH WBC DIFFERENTIAL AND ANEMIA REFLEX WORKUP Lab Routine Supervision of high-risk , unspecified trimester 10/05/2023 8:52 AM EDT SYPHILIS ANTIBODY SCREEN Lab Routine Supervision of high-risk , unspecified trimester 10/05/2023 8:52 AM EDT ANEMIA CBC Lab Routine Supervision of high-risk , unspecified trimester 10/05/2023 8:52 AM EDT DIFFERENTIAL, AUTOMATED Lab Routine Supervision of high-risk , unspecified trimester 10/05/2023 8:52 AM EDT ANEMIA REFLEX CHEMISTRY HOLD Lab Routine Supervision of high-risk , unspecified trimester 10/05/2023 8:52 AM EDT Health Maintenance Due Date Last Done Comments HPV (Gardasil) Vaccine (2 - 2-dose series) 06/02/2014 12/02/2013 Depression Screening 09/21/2022 09/21/2021 COVID-19 Vaccine (3 - 2022-2 4 season) 2022 02/11/2021, 01/21/2021 Influenza Vaccine (FLU shot) (#1) 2023 11/16/2018, 11/16/2018, 10/28/2016, Additional history exists Gonorrhea / Chlamydia Screen 05/17/202412/2023, 02/26/2022, 01/13/2022, Additional history exists Pap Smear 06/21/2024 06/21/2021 DTap/Tdap Vaccines (8 - Td o r Tdap) 06/06/2032 06/06/2022, 10/24/2011, 06/20/2005, Additional history exists Hepatitis B Vaccine Completed 08/10/2000, 1999, 1999 MENINGOCOCCAL (MENACTRA/MENVEO) Completed 7, 10/24/2011 Pneumococcal Vaccine: Pediat rics (0 to 5 Years) and At-Risk Patients (6 to 64 Years) Completed 09/21/2021 documented as of this encounter Medical Devices Not on filedocumented as of this encounter Visit Diagnoses Diagnosis Supervision of high-risk , unspecified trimester documented in this encounter Advance Directives * [...] the patient have Health Care Power of Patient Care Assistant? No * Full Code Date Activated Date [...] patient or by statute hierarchy) Care Teams Department Assistant Relationship Specialty Start Date End Date Victorina Waggoner CRNP [address] [place] [address] PCP - General Nurse Practitioner 03/05/21 documented as of this encounter
--- OUTSIDE RECORDS SUMMARY | 2023-12-02 22:07 | External Medical Summary ---
Author Name Unknown Address Unknown Organization K01:LABORATORY [facility] - [address] [place] [address] Laboratory Report Ordering Provider Test Date Status ROLAND COLE 10/05/2023 08:52:55 Final Observation Date Value Abnormality Reference (Units ) Status TSH 10/05/2023 08:52:55 2.74 0.27-4.20 (uIU/mL) Final Performing Location LABORATORY [facility] - [address] [place] [address]
--- OUTSIDE RECORDS SUMMARY | 2023-12-02 22:07 | External Medical Summary | Summary of Care ---
Author Name Unknown Organization [facility] Address [address] [place] [address] Phone [phone] Care Team Providers Care Seismograph Supervisor Name Role Phone Victorina Waggoner Primary Care Provider Reason for Visit * Reason Onset Date Comments MyCode Nonconsent - Not interested at this time 10/06/2023 Encounter Details Date Type Department Care Team (Late st Contact Info) Description 10/06/2023 Orders Only Outcomes Research Department [address] [place], [place] [phone] Sarah Le CHRA MyCode Nonconsent Documentation Allergies Active Allergy Reactions Criticality Noted Date [...] if it can be obtained at [facility]. Elevated TSH 07/01/2022 Allergic conjunctivitis 10/28/2016 [...] assess growth 07/21/2022 09/09/2022 Overview: Referred to [facility] for "borderline large for gestational age [...] PPD 01/21/2021,06/11/2018 Pneumococcal Conjugate Vacci ne, 20-valent ([id number]) 09/21/2021 Seasonal Influenza, PF, 6 M & [...] money to get more. Never true 08/16/2023 [place] Depression Scale Answer Date Recorded [place] Depression Scale Total 0 05/18/2023 The thought [...] as of this encounter Progress Notes * Sarah Le CHRA - 10/06/2023 9:07 AM EDT Rowdyode Nonconsent Documentation Janey Loyola was approached in the clinic regarding participation in the MyCode Project and did not consent. documented in this encounter Plan of Treatment Upcoming Encounters Date Type Department Care Team (Late st Contact Info) Description 10/20/2023 11:45 AM EDT Office Visit Gynecology/Obstetrics Stephen Rubio [address] [place] [address] Keesha Macdonald PA-C [address] [place] [address] 2023 11:00 AM EDT Imaging Maternal Medicine Imaging, Galina Ramiro [address] [place] [phone] 11/30/2023 8:00 AM EDT Imaging Maternal Medicine Imaging, Galina Ramiro [address] [place] [phone] Health Maintenance Due Date Last Done Comments [...] the patient have Health Care Power of Special Assets Officer? No * Full Code Date Activated Date [...] patient or by statute hierarchy) Care Teams Seismograph Supervisor Relationship Specialty Start Date End Date Victorina Waggoner CRNP [address] [place] [address] PCP - General Nurse Practitioner 03/05/21 documented as of this encounter
--- OUTSIDE RECORDS SUMMARY | 2023-12-02 22:07 | External Medical Summary ---
Author Name Unknown Address Unknown Organization K01:[place] [facility] [place] [address] [place] [address] Laboratory Report Ordering Provider Test Date Status ROLAND COLE 10/06/2023 11:11:45 Final Observation Date Value Abnormality Reference (Units ) Status Glucose, 2-hr post glucose challenge 10/06/2023 11:11:45 113 70-154 (mg/dL) Final Performing Location LAB[facility]ATORY [facility] - [address] [place] [address]
--- OUTSIDE RECORDS SUMMARY | 2023-12-02 22:07 | External Medical Summary | Summary of Care ---
Author Name Unknown Organization [facility] Address [address] [facility] [place] [address] Phone [phone] Care Team Providers Care Press Operator Printing Name Role Phone Victorina Waggoner Primary Care Provider Reason for Visit * Reason Comments Outpatient Testing Encounter Details Date Type Department Care Team (Late st Contact Info) Description 10/05/2023 7:50 AM EDT Laboratory Laboratory, [facility] 132 [facility] [place] [phone] RubioJunior downing [facility] [address] [facility] [address] Arrived Allergies Active Allergy Reactions Criticality Noted Date [...] this if it can be obtained at [facility]. Elevated TSH 07/01/2022 Allergic conjunctivitis 10/28/2016 [...] assess growth 07/21/2022 09/09/2022 Overview: Referred to [facility] for "borderline large for gestational age abdominal [...] consider repeat testing due to large AC. [facility] ultrasound scheduled on 08/08/2022 Last Assessment & [...] PPD 01/21/2021,06/11/2018 Pneumococcal Conjugate Vacci ne, 20-valent ([id number]) 09/21/2021 Seasonal Influenza, PF, 6 M & above, IM , (FluLaval or Fluzone) 11/16/2018,10/28/2016 10/28/2017 Seasonal Influenza, Quadriva lent, No Preserve, IM 10/29/2015,10/30/2014 10/31/2015 Seasonal Influenza, Split, I IV3, With Preserve, Inj 10/29/2013,11/15/2011,11/10/2010,11/06,12/07/2008,11/20/2006,01/05/20 06 10/29/2014 TDAP (age 10 and older)(Boostrix) 06/06/2022, Varicella Vaccine (Chicken Pox) 10/24/2011 documented as [...] money to get more. Never true 08/16/2023 [place] Depression Scale Answer Date Recorded [place] Depression Scale Total 0 05/18/2023 The thought [...] No 08/16/2023 Does the household have a [facility] source of income? (Household - for ages [...] No 08/16/2023 Are you (or your family) sireal eless or worried that you might be [...] Gynecology/Obstetrics Stephen Rubio [address] [place] [address] BackerTara CRNP [address] [place] [address] 2023 11:00 AM EDT Imaging Maternal Medicine ImagingGalina [address] [place] [phone] 11/30/2023 8:00 AM EDT Imaging Maternal Medicine Imaging, [address] [place] [phone] Health Maintenance Due Date Last Done [...] the patient have Health Care Power of Smoke Jumper Supervisor? No * Full Code Date Activated [...] patient or by statute hierarchy) Care Teams Press Operator Printing Relationship Specialty Start Date End Date Victorina Waggoner CRNP [address] [place] [address] PCP - General Nurse Practitioner 03/05/21 documented as of this encounter
--- OUTSIDE RECORDS SUMMARY | 2023-12-02 22:07 | External Medical Summary | Summary of Care ---
Author Name Unknown Organization [facility] Address [address] [place] [address] Phone [phone] Care Team Providers Care Forestry Contractor Name Role Phone Victorina Waggoner Primary Care Provider Encounter Details Date Type Department Care Team (Late st Contact Info) Description 10/05/2023 8:00 AM EDT Office Visit Store Management Trainee Obstetrics Maternal Medicine, [address] [address] Michelle Arellano, DO [address] [place] [address] Obesity in , antepartum*; Ultrasound for screening for growth restriction; 28 weeks gestation of Allergies Active Allergy Reactions [...] this if it can be obtained at [facility]. Elevated TSH 07/01/2022 Allergic conjunctivitis [...] consider repeat testing due to large AC. [facility] ultrasound scheduled on 08/08/2022 Last Assessment [...] PPD 01/21/2021,06/11/2018 Pneumococcal Conjugate Vacci ne, 20-valent ([id number]) 09/21/2021 Seasonal Influenza, PF, 6 M & [...] money to get more. Never true 08/16/2023 [place] Depression Scale Answer Date Recorded [place] Depression Scale Total 0 05/18/2023 The thought [...] 08/16/2023 Does the household have a re lar source of income? (Household - for ages [...] this encounter Progress Notes * Michelle Arellano, DO - 10/05/2023 10:15 AM EDT Janey presented today at 28w4d for an ultrasound for the following indications: Obesity in , antepartum Ultrasound for screening for growth restriction 28 weeks gestation of Ultrasound summary: Patient presented at 28w 4d for growth assessment. Normal growth with EFW 1255 g at 38%ile. Normal AURORA at 15.4 cm. Breech presentation. I reviewed the ultrasound [...] call with any questions. Michelle Arellano DO 10/05/2023 10:15 AM documented in this encounter Plan of Treatment Upcoming Encounters Date Type Department Care Team (Late st Contact Info) Description 10/20/2023 11:45 AM EDT [facility] [address] [place] [address] Keesha Macdonald PA-C [address] [place] [address] 2023 11:00 AM EDT Imaging Maternal Medicine Imaging, [facility] [address] [place] [phone] 11/30/2023 8:00 AM EDT Imaging Maternal Medicine Imaging, [facility] [address] [place] [phone] Health Maintenance Due Date Last Done Comments [...] restriction screening for growth retardation using ultrasonics 28 weeks gestation of state, incidental documented in [...] the patient have Health Care Power of Wheelchair Van Operator First Responder? No * Full Code Date Activated Date [...] patient or by statute hierarchy) Care Teams Forestry Contractor Relationship Specialty Start Date End Date Victorina Waggoner CRNP [address] [place] [address] PCP - General Nurse Practitioner 03/05/21 documented as of this encounter
--- OUTSIDE RECORDS SUMMARY | 2023-12-02 22:07 | External Medical Summary ---
Author Name Unknown Address Unknown Organization K[facility] - [address] [place] [address] Laboratory Report Ordering Provider Test Date Status ROLAND COLE 10/05/2023 08:52:55 Final Observation Date Value Abnormality Reference (Units ) Status Folic Acid 10/05/2023 08:52:55 19.5 >4.5 (ng/ mL) Final Performing Location [facility] - [address] [place] [address]
--- OUTSIDE RECORDS SUMMARY | 2023-12-02 22:07 | External Medical Summary | Summary of Care ---
Author Name Unknown Organization [facility] Address [address] [place] [address] Phone [phone] Care Team Providers Care Brake [address] Freight Name Role Phone Victorina Waggoner Primary Care Provider Reason for Visit * Reason Comments Ultrasound * Evaluate & Treat - Unlimited Visits (Within 10 days (routine)) - Authorized Specialty Diagnoses / Procedures Referred By Contwendy t Referred To Contact Obstetrics/Gynecology / Maternal Medicine Diagnoses Supervision of high-risk , first trimester Class 2 obesity Maternal asthma complicating Short interval between pregnancies complicating , antepartum History of section complicating Lakesha Tsang, CNM [address] [place] [address] Referral ID Status Reason Start Date Expiration Date Visits Requested Visits Authorized [id number] Authorized Specialty Services Required 05/18/2023 [id number] Encounter Details Date Type Department Care Team (Late st Contact Info) Description 09/08/2023 10:30 AM EDT Office Visit General Administrator Obstetrics Maternal Medicine, [place] [address] [place], [place] [id number] Javi Puga, [address] [place], [place] [id number] Obesity in , antepartum*; Obesity, Class II, BMI 35-39.9; Previous delivery, antepartum condition or complication; Short interval between pregnancies complicating , antepartum; Maternal asthma complicating ; H/O macrosomia in infant in prior , currently Allergies Active Allergy Reactions Criticality Noted Date Comments Penicillins Other (Please comment) 02/02/2000 Rash Does not remember severity of reaction d/t being very young documented as of this encounter (statuses as of 09/08/2023) Medications Medication Sig Dispensed Refills Start Date [...] as of this encounter (statuses as of 09/08/2023) Active Problems Problem Noted Date Diagnosed Date [...] this if it can be obtained at [facility]. Elevated TSH 07/01/2022 Obesity, Class II, BMI 35-39.9 01/13/2022 Overview: Early glucola Growth u/s every 4 weeks after 20wk Weekly NST starting at 37w Allergic conjunctivitis 10/28/2016 Allergic rhinitis 10/28/2013 Estimated Date of Delivery Comme nts Yes 12/24/2023 Based on Ultraso und documented as of this encounter (statuses as of 09/08/2023) Resolved Problems Problem Noted Date Diagnosed Date Resolved Date intolerance to labor, delivered, current hospitalization 09/05/2022 09/09/2022 Status post delivery 09/04/2022 10/13/2022 Encounter for induction of labor 09/02/2022 09/09/2022 Group beta Strep positive 08/05/2022 Overview: Clindamycin Susceptible Penicillin G Susceptible Vancomycin Susceptible Encounter for ultrasound to assess growth 07/21/2022 09/09/2022 Overview: Referred to [facility] for "borderline large for gestational age [...] consider repeat testing due to large AC. [facility] ultrasound scheduled on 08/08/2022 Last Assessment & Plan: Referred for concern for LGA. Reviewed that fetus does not need criteria for LGA at this time. EFW 82%ile, AC 91%ile. AURORA WNL. Repeated 1hr GCT which was WNL. 31 weeks gestation of 07/01/2022 09/09/2022 Supervision of normal first , antepartum 01/13/2022 09/03/2022 Intermittent asthma with rel iever use up [...] as of this encounter (statuses as of 09/08/2023) Immunizations Name Administration Dates Next Due DTaP Dipth/Tet/Acell Pertussis (Infanrix), Peds 06/20/2005 H1N1 2009 Influenza, IM 01/06/2009 HPV Vaccine, 4-Valent 12/02/2013 IPV - Polio Virus Vaccine (Inact) 06/20/2005 MMR - Measles/Mumps/Rubella Vaccine 06/20/2005 Meningococcal Conjugate Vacc ine (Menactra/Menveo) 02/01/2017,10/24/2011 PPD 01/21/2021,06/11/2018 Pneumococcal Conjugate Vacci ne, 20-valent ([id number]) 09/21/2021 Seasonal Influenza, PF, 6 M & [...] money to get more. Never true 08/16/2023 [place] Depression Scale Answer Date Recorded [place] Depression Scale Total 0 05/18/2023 The thought [...] as of this encounter Progress Notes * Javi Puga DO - 09/08/2023 11:53 AM EDT MATERNAL MEDICINE VISIT Janey Loyola is at 24w5d who presents to [facility] for an ultrasound and follow-up of her high risk . PHYSICAL EXAM: General: pleasant, alert and oriented, no acute distress She is being seen today by Maternal- Medicine for the following reasons: Problem List Items Addressed This Visit Obesity, Class II, BMI 35-39.9 Obesity in , antepartum - Primary She presents for follow-up of growth and [...] this if it can be obtained at [facility]. Maternal asthma complicating H/O macrosomia in in prior , currently Previous delivery, antepartum condition or complication Short interval between pregnancies complicating , antepartum We reviewed today's ultrasound findings. (For full report, please refer to ultrasound report provided separately). Ms. Loyola's questions were answered to her satisfaction. RECOMMENDATIONS: Recommend surveillance starting at 37 weeks secondary to class II obesity. Recommend follow up ultrasound with [facility] in 4 weeks for growth. Pediatric cardiology referral placed. Thank you for allowing us to participate in the care of this patient. Please call with any questions. Javi Puga DO 09/08/2023 11:54 AM documented in this encounter Miscellaneous Notes * Assessment & Plan Note - Javi Puag DO - 09/08/2023 10:56 AM EDT Associated Problem(s): Obesity in , antepartum She presents for follow-up of growth and [...] this if it can be obtained at [facility]. documented in this encounter Plan of Treatment Upcoming Encounters Date Type Department Care Team (Late st Contact Info) Description 09/12/2023 9:00 AM EDT Office Visit Pediatric Cardiology, [facility] [address] [address] Taj Jim MD [address] [address] 09/12/2023 9:00 AM EDT Imaging Maternal Medicine Imaging, [facility] [place] [phone] 10/05/2023 7:50 AM EDT Laboratory Laboratory, [facility] [address] [phone] [facility] [place] [address] 10/05/2023 8:00 AM EDT Imaging Maternal Medicine Imaging, [facility] [place] [phone] 10/05/2023 9:15 AM EDT Office Visit Gynecology/Obstetrics [facility] [place] [address] Tara Liao CRNP [address] [address] 2023 11:00 AM EDT Imaging Maternal Medicine Imaging, Galina Rubio [address] [place] [phone] 11/30/2023 8:00 AM EDT Imaging Maternal Medicine Imaging, Galina Rubio [address] [place] [phone] Health Maintenance Due Date Last Done Comments HPV (Gardasil) Vaccine (2 - 2-dose series) 06/02/2014 12/02/2013 Depression Screening 09/21/2022 09/21/2021 COVID-19 Vaccine (2022-2 4 season) 2022 02/11/2021, 01/21/2021 Influenza Vaccine (FLU shot) (#1) 2023 11/16/2018, 11/16/2018, 10/28/2016, Additional history exists Gonorrhea / Chlamydia Screen 05/17/202412/2023, 02/26/2022, 01/13/2022, Additional history exists Pap Smear 06/21/2024 06/21/2021 DTaP,Tdap,and Td Vaccines (8 - Td or Tdap) 06/06/2032 06/06/2022, 10/24/2011, 06/20/2005, Additional history [...] or the puerperium, antepartum condition or complication Obesity, Class II, BMI 35-39.9 Morbid obesity Previous delivery, antepartum condition or complication Short interval between pregnancies complicating , antepartum Supervision of other high-risk Maternal asthma complicating Other current maternal conditions classifiable elsewhere, complicating , childbirth, or the puerperium, unspecified as to episode of care H/O macrosomia in in prior , currently with other poor obstetric history documented in this encounter Advance Directives * [...] the patient have Health Care Power of Cloth Shrinking Supervisor? No * Full Code Date Activated [...] patient or by statute hierarchy) Care Teams [address] Freight Relationship Specialty Start Date End Date Victorina Waggoner CRNP [address] [address] PCP - General Nurse Practitioner 03/05/21 documented as of this encounter
--- OUTSIDE RECORDS SUMMARY | 2023-12-02 22:07 | External Medical Summary | Summary of Care ---
Author Name Unknown Organization [facility] Address [address] [place] [address] Phone [phone] Care Team Providers Care Liner Man Name Role Phone Victorina Waggoner Primary Care Provider Encounter Details Date Type Department Care Team (Late st Contact Info) Description 10/05/2023 8:00 AM EDT Office Visit Dog Beautician Obstetrics Maternal Medicine, [address] [address] Michelle Arellano, DO [address] [place] [address] Obesity in , antepartum*; Ultrasound [...] this if it can be obtained at [facility]. Elevated TSH 07/01/2022 Allergic conjunctivitis 10/28/2016 Allergic [...] growth 07/21/2022 09/09/2022 Overview: Referred to [facility] for "borderline large for gestational age abdominal [...] PPD 01/21/2021,06/11/2018 Pneumococcal Conjugate Vacci ne, 20-valent ([id number]) 09/21/2021 Pneumococcal Conjugate Vacci ne, 7 Valent 06/01/2000,03/15/2000,01/05/2000 Seasonal Influenza, PF, 6 M & above, IM , (FluLaval or Fluzone) 11/16/2018,10/28/2016 10/28/2017 Seasonal Influenza, Quadriva lent, No Preserve, IM 10/29/2015,10/30/2014 10/31/2015 Seasonal Influenza, Trivalen t, (IIV3), with Preserv, (Fluzone) 10/29/2013,11/15/2011,11/10/2010,11/06,12/07/2008,11/20/2006,01/05/20,02/09/2005,01/03/2005 10/29/2014 TDAP (age 10 and older)(Boostrix) [...] money to get more. Never true 08/16/2023 [place] Depression Scale Answer Date Recorded [place] Depression Scale Total 0 05/18/2023 The thought [...] Progress Notes * Michelle Arellano DO - 10/05/2023 10:15 AM EDT Janey [...] Gynecology/Obstetrics Stephen Rubio [address] [place] [address] Keesha Macdonald PA-C [address] [place] [address] 2023 11:00 AM EDT Imaging Maternal Medicine Imaging[facility] [address] [place] [phone] 11/30/2023 8:00 AM EDT Imaging Maternal Medicine Imaging, [address] [place] [phone] Health Maintenance Due [...] the patient have Health Care Power of Rooming House Operator? No * Full Code Date Activated Date Inactivated Comments 09/02/2022 5:18 PM 09/03/2022 5:55 PM This order r eflects the patients wishes and were consensually agreed upon. Question Answer Comments Discussion of Advance Directives occurred with: Patient Healthcare Agents on File Name Relationship Healthcare Agent Relationshi p Communication Mio Hilger Spouse Health Care Repr esentative (appointed verbally by patient or by statute hierarchy) Care Teams Liner Man Relationship Specialty Start Date End Date Victorina Waggoner CRNP [address] [place] [address] PCP - General Nurse Practitioner 03/05/21 documented as of this encounter
--- OUTSIDE RECORDS SUMMARY | 2023-12-02 22:07 | External Medical Summary | Summary of Care ---
Author Name Unknown Organization [facility] Address [address] [facility] [place] [address] Phone [phone] Care Team Providers Care Public Aid Eligibility Assistant Name Role Phone Victorina Waggoner Primary Care Provider Reason for Visit * Reason Comments Heart Evaluation Encounter Details Date Type Department Care Team (Late st Contact Info) Description 09/12/2023 9:00 AM EDT Office Visit Pediatric Cardiology, [facility] [address] [facility] [place] [address] Taj Jim MD [address] [place] [address] Encounter for screening for congenital cardiac abnormalities* Allergies Active Allergy Reactions Criticality Noted Date Comments Penicillins Other (Please comment) 02/02/2000 Rash Does not remember severity of reaction d/t being very young documented as of this encounter (statuses as of 09/12/2023) Medications Medication Sig Dispensed Refills Start Date [...] as of this encounter (statuses as of 09/12/2023) Active Problems Problem Noted Date Diagnosed Date [...] this if it can be obtained at [facility]. Elevated TSH 07/01/2022 Obesity, Class II, BMI 35-39.9 01/13/2022 Overview: Early glucola Growth u/s every 4 weeks after 20wk Weekly NST starting at 37w Allergic conjunctivitis 10/28/2016 Allergic rhinitis 10/28/2013 Estimated Date of Delivery Comme nts Yes 12/24/2023 Based on Ultraso und documented as of this encounter (statuses as of 09/12/2023) Resolved Problems Problem Noted Date Diagnosed Date Resolved Date intolerance to labor, delivered, current hospitalization 09/05/2022 09/09/2022 Status post delivery 09/04/2022 10/13/2022 Encounter for induction of labor 09/02/2022 09/09/2022 Group beta Strep positive 08/05/2022 Overview: Clindamycin Susceptible Penicillin G Susceptible Vancomycin Susceptible Encounter for ultrasound to assess growth 07/21/2022 09/09/2022 Overview: Referred to [facility] for "borderline large for gestational age [...] as of this encounter (statuses as of 09/12/2023) Immunizations Name Administration Dates Next Due DTaP Dipth/Tet/Acell Pertussis (Infanrix), Peds 06/20/2005 H1N1 2009 Influenza, IM 01/06/2009 HPV Vaccine, 4-Valent 12/02/2013 IPV - Polio Virus Vaccine (Inact) 06/20/2005 MMR - Measles/Mumps/Rubella Vaccine 06/20/2005 Meningococcal Conjugate Vacc ine (Menactra/Menveo) 02/01/2017,10/24/2011 PPD 01/21/2021,06/11/2018 Pneumococcal Conjugate Vacci ne, 20-valent ([id number]) 09/21/2021 Seasonal Influenza, PF, 6 M & [...] money to get more. Never true 08/16/2023 [place] Depression Scale Answer Date Recorded [place] Depression Scale Total 0 05/18/2023 The thought [...] No 08/16/2023 Does the household have a up health systemr source of income? (Household - for ages [...] as of this encounter Progress Notes * Taj Jim MD - 09/12/2023 9:18 AM EDT Janey Loyola Date of : 2000 Age: [age] year old 09/12/2023 Primary Care Provider: LENORE Parker Referring provider: Keesha Macdonald PA-C Historian: patient LENORE Parker: I saw Janey for echocardiography secondary to inadequate heart imaging on prior [facility] ultrasound. Patient has class II obesity and history of asthma. Current GA: 25 2/7 weeks (JEIMY: 12/24/2023) Past Medical History: Diagnosis Date Acquired stenosis of nasolacrimal duct Asthma well controlled x several years without inhaler use Cellulitis of trunk 08/14/2006 Congenital anomaly of larynx, trachea, and bronchus eczema Eczema Past Surgical History: Procedure Laterality Date DELIVERY ONLY W/ 09/03/2022 DELIVERY AND CARE performed by Gladis Logan MD at OR [facility] REMOVAL OF PHARYNX LESION Left 03/28/2019 EXCISION OR DESTRUCTION LESION PHARYNX performed by Ike Kan DO at OR [facility] REMOVE PILONIDAL CYST, COMPLEX N/A 06/03/2016 EXCISION OF PILONIDAL CYST SINUS COMPLICATED performed by Kavita Blanca MD at OR [facility] REMOVE TONSILS & ADENOIDS, UNDER 12 age 4 T & A, age<12 Current Outpatient Medications Medication Sig Dispense Refill Levocetirizine Dihydrochloride 5 MG Oral Tablet Use 1 tablet daily each evening for allergic nasal symptoms 30 Tablet 5 19 29-1 MG Oral Tablet Chewable Take by mouth . Ventolin HFA 108 (90 Base) MCG/ACT Inhalation Aerosol Solution Inhale 2 Puffs by mouth every 4 hours as needed for Cough, Shortness of Breath or Wheezing. 18 g 3 Betamethasone Dipropionate 0.05 % External Cream (Diprosone) Apply to eczema on trunk, arms and legs twice daily as needed 45 g 3 Acetaminophen Extra Strength 500 MG Oral Tablet PLEASE SEE ATTACHED FOR DETAILED DIRECTIONS No current facility-administered medications for this visit. Family History Problem Relation Name Age of Onset Allergies Mother food allergies, shellfish Allergies Father rhinitis, No Known Problems Brother Other (eczema) Grandmother (Maternal) Asthma Grandmother (Paternal) Other (eczema) Grandmother (Paternal) Other (psoriasis) Grandfather (Paternal) Other (Other) Other no hx of skin cancer for pt parents No Known Problems Daughter Physical Examination: Not done, deferred Echocardiogram: The study demonstrates normal segemental anatomy with concordant atrioventricular and ventriculoarterial connections. Chambers are normal in size, thickness and systolic function. 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 Normal AV and semilunar valves position and function. Ventricular septum appears intact. PDA is non restrictive. Aortic arch is normal. Main and branch PAs are normal. There is no pericardial effusion. No dysrhythmia is noted. For details please refer to complete echo report. IMPRESSION: Normal heart anatomy and function The patient was counseled regarding normal heart findings and limitations of echocardiogram. She expressed understanding. RECOMMENDATIONS: Term delivery Follow up as needed This was discussed with the patient. Thank you sincerely for referring Janey to us. Please call me if you have any questions at [phone]. If I can help you further, please don't hesitate to contact me. 60 minutes was spent for this encounter, and more than half of that was spent counseling the patient. Taj Jim MD 09/12/2023 9:18 AM PCP: VICTORINA WAGGONER [address] [place] [address] [place] [address] [phone] documented in this encounter Plan of Treatment Upcoming Encounters Date Type Department Care Team (Late st Contact Info) Description 10/05/2023 7:50 AM EDT [facility] [address] [place] [phone] [address] [place] [address] 10/05/2023 8:00 AM EDT Imaging Maternal Medicine Imaging, [facility]ina Rubio [address] [place] [phone] 10/05/2023 9:15 AM EDT Office Visit Gynecology/Obstetrics [address] [place] [address] Backer, LENORE Jasmine [address] [place] [address] 2023 11:00 AM EDT Imaging Maternal Medicine Imaging, [address] [place] [phone] 11/30/2023 8:00 AM EDT Imaging Maternal Medicine Imaging, [address] [place] [phone] Scheduled Orders Name Type Priority Associated Diagnoses Orde r Schedule DOPPLER ECHO EXAM OF HEART Echocardiology Routine Encounter for screening for congenital cardiac abnormalities Ordered: 09/12/2023 DOPPLER COLOR FLOW MAPPING Echocardiology Routine Encounter for screening for congenital cardiac abnormalities Ordered: 09/12/2023 Health Maintenance Due Date Last Done Comments [...] Procedure Name Priority Date/Time Associated Diagnosis Comments CHG ECHO CARDIOVASC W/WO M-MODE RECORDING Routine 09/12/2023 9:12 AM EDT Encounter for screening for congenital cardiac abnormalities documented in this encounter Results * ECHO EXAM OF HEART (09/12/2023 9:12 AM EDT) 09/12/2023 9:12 AM EDT Taj Jim MD E[facility]OCARDIOLOGY [facility] documented in this encounter Visit Diagnoses Diagnosis Encounter for screening for congenital cardiac abnormalities- Primary documented in this encounter Advance Directives * [...] the patient have Health Care Power of Professor Of Biostatistics? No * Full Code Date Activated Date Inactivated Comments 09/02/2022 5:18 PM 09/03/2022 5:55 PM This order r eflects the patients wishes and were consensually agreed upon. Question Answer Comments Discussion of Advance Directives occurred with: Patient Healthcare Agents on File Name Relationship Healthcare Agent Relationshi p Communication Mio Cobden Spouse Health Care Repr esentative (appointed verbally by patient or by statute hierarchy) Care Teams Public Aid Eligibility Assistant Relationship Specialty Start Date End Date Victorina Waggoner CRNP [address] [place] [address] PCP - General Nurse Practitioner 03/05/21 documented as of this encounter
--- OUTSIDE RECORDS SUMMARY | 2023-12-02 22:07 | External Medical Summary | Summary of Care ---
Author Name Unknown Organization [facility] Address [address] [facility] [place] [address] Phone [phone] Care Team Providers Care Confectionery Laboratory Manager Name Role Phone Victorina Waggoner Primary Care Provider Reason for Visit * Reason Comments Return Visit Encounter Details Date Type Department Care Team (Late st Contact Info) Description 10/05/2023 9:15 AM EDT Office Visit Gynecology/Obstetric s Stephen Rubio [address] [place] [address] BackTara collins CRNP [address] [place] [address] Supervision of high-risk , unspecified trimester*; Obesity in , antepartum; Maternal asthma complicating ; H/O macrosomia in in prior , currently ; Previous delivery, antepartum condition or complication; Short interval between pregnancies complicating , antepartum; Need for prophylactic vaccination with combined pdqchspenh-binamtj-yn rtussis (DTP) vaccine Allergies Active Allergy Reactions Criticality Noted Date [...] if it can be obtained at [facility]. Elevated TSH 07/01/2022 Allergic conjunctivitis 10/28/2016 [...] PPD 01/21/2021,06/11/2018 Pneumococcal Conjugate Vacci ne, 20-valent ([id number]) 09/21/2021 Seasonal Influenza, PF, 6 M & [...] money to get more. Never true 08/16/2023 [place] Depression Scale Answer Date Recorded [place] Depression Scale Total 0 05/18/2023 The thought [...] Sign Reading Time Taken Comments Blood Pressure - - Pulse - - Temperature - - Respiratory Rate - - Oxygen Saturation - - Inhaled Oxygen Concentration - - Weight 130.6 kg (288 lb) 10/05/2023 9:01 AM EDT Height 182.9 cm (6' 0.01") 10/05/2023 9:01 AM ED T Body Mass Index 39.05 10/05/2023 9:01 AM EDT documented in this encounter Patient Instructions * Patient Instructions* Tara Liao CRNP - 10/05/2023 9:07 AM EDT Support for pelvic pain in Stretches/exercises https://www.[employer]/media/eaqo-rdfhcehlp-kt-combat-lowback--pelvic-miguelina u-fmyfht-yefxeubqw https://abilityrehabilitation.com/news/4-iforo-zobbzs-ociou-eyzcucypv-es-do-duri ng-/ Belly Bands: https://[employer]/collections/maternity-wear Upsie Belly 2 in 1 Bandit V-sling (good for vulvar varicose veins) Round Ligament Pain: Causes and Treatment Round ligament pain is most common during the 2nd and 3rd trimesters. Women may have a sharp pain in their abdomen or hip area that is either on one side or both. Some women even report pain that extends into the groin area. Round ligament pain is considered a normal part of as your body goes through many different changes. What causes round ligament pain? The round ligament supports the uterus and stretches during . It connects the front portion of the uterus to the groin. These ligaments contract and relax like muscles, but much more slowly. Any movement (including going from a sitting to standing position quickly, laughing, or coughing) that stretches these ligaments by making them contract quickly, can cause a woman to experience pain.Round ligament pain should only last for a few seconds. Stretching is the best way to loosen things up and prevent round ligament pain. Here are our top round ligament pain stretches to get you started: #1 CAT-COW Start on your hands and knees, shoulders above wrists and hips above knees. Breathe in and drop your stomach down, arching your back and looking upward. Then, breathe out and round your upper back toward the ceiling, allowing your head to drop and face your stomach. #2 HIP FLEXOR STRETCH In all fours position with your arm resting on a chair or birthing ball, bring the right leg forward while extending/straightening the left leg back until you feel a stretch in the front of the left thigh. Hold the position for 5-10 seconds. Repeat on the opposite side. #3 SIDE LYING SAVASANA Lie on your left side in a position, tuck your left arm beneath your head, and place a pillowbetween your legs to relieve pressure on your lower back. Flex your hips and remain in this position for several minutes. Inhale deeply as you stretch. #4 THE PELVIC CLOCK Sit on a birthing ball or chair with your feet flat on the floor. Bring your hands to your hips so you can feel the movement in your pelvis as you stretch. Now, imagine a clock resting on your pelvis--with your navel at 12 oclock and pubic bone at 6 oclock. Engage your abs and lengthen your spine. Inhale and tilt your pelvis toward a 3 oclock position. Continue on the inhale and move around the clock, creating a small arch in your lower back. Exhale and bring your pelvis to 9 oclock. Continue your exhale until you reach a neutral 12 oclock position. #5 BUTTERFLY STRETCH Sit upright on a firm surface. Place the soles of your feet together and pulse your legs up and down, like the wings of a butterfly. You should feel a stretch in your inner thighs. For an even deeperstretch, place your hands on your knees for resistance. Other Ways to Relieve Round Ligament Pain While round ligament pain stretches are the best way to reduce pain, there are a few other things you can try to alleviate the discomfort : A belly band to give your bump some extra support Hydration to improve circulation to your growing tissue Rest to allow your muscles to recover from any movement Massage to give that area some extra TLC Acetaminophen to get some medicated pain relief documented in this encounter Progress Notes * Tara Liao CRNP - 10/05/2023 9:02 AM EDT 28w4d Baby moving well. No cramping/bleeding. Experiencing sciatic pain - reviewed stretches to do at home, can also see PT or chiropractor. Discussed [facility] and when to call with concerns. Message sent to [facility]by for C/S scheduling. Labs and MFM U/S, Tdap today. Return in 2 weeks. LENORE Kapoor documented in this encounter Nursing Notes * Monie Galvan LPN - 10/05/2023 9:21 AM EDT Patient here for tdap injection. Patient doing well no complaints. Injection given IM as ordered. Patient tolerated well. Patient to follow up as directed. Patient instructed to call if any complications. Patient verbalized understanding of instructions given and her follow up appt for YARELY Injection site: Left Deltoid Medication Source: Dispensed stock medication * Monie Galvan LPN - 10/05/2023 9:02 AM EDT 28w4d Struggling with sciatic pain Accepts tdap Completing labs today Had growth us today documented in this encounter Plan of Treatment Upcoming Encounters Date Type Department Care Team (Late st Contact Info) Description 10/20/2023 11:45 AM EDT Office Visit Gynecology/Obstetrics Stephen Rubio [address] [place] [phone] Keesha Macdonald PA-C [address] [phone] 11:00 AM EDT Imaging Maternal Medicine ImagingGalina [address] [place] [phone] 11/30/2023 8:00 AM EDT Imaging Maternal Medicine Galina Andrews [address] [place] [phone] Health Maintenance Due Date Last Done Comments HPV (Gardasil) Vaccine (2 - 2-dose series) 06/02/2014 12/02/2013 Depression Screening 09/21/2022 09/21/2021 COVID-19 Vaccine (3 2022-2 4 season) 2022 02/11/2021, 01/21/2021 Influenza [...] complicating , antepartum Supervision of other high-risk Need for prophylactic vaccination with combined kgclhjarbx-hxmavko-fygdmdfqi (DTP) vaccine documented in this encounter Advance Directives * [...] the patient have Health Care Power of Thoroughbred Horse Farm Manager? No * Full Code Date Activated [...] patient or by statute hierarchy) Care Teams Confectionery Laboratory Manager Relationship Specialty Start Date End Date Victorina Waggoner CRNP [address] [place] [address] PCP - General Nurse Practitioner 03/05/21 documented as of this encounter
--- OUTSIDE RECORDS SUMMARY | 2023-12-02 22:07 | External Medical Summary ---
Author Name Unknown Address Unknown Organization [id number]:[facility] [place] [facility] [address] [facility] [address] Laboratory Report Ordering Provider Test Date Status DOUGLASROLAND 10/05/2023 08:52:55 Final Observation Date Value Abnormality Reference (Units ) Status Retic, % (auto) 10/05/2023 08:52:55 2.00 Above high normal 0.80-1.90 (%) Final Reticulocytes, Absolute 10/05/2023 08:52:55 80.6 31.3-100.1 (K/uL) Final Reticulocyte fraction, immature 10/05/2023 08:52:55 24.5 Above high normal 2.5-20.6 (%) Final Reticulocyte HGB 10/05/2023 08:52:55 31.5 29.7-37.4 (pg) Final Performing Location LAB[facility]ATORY [facility] [place] [address] [place] [address]
--- OUTSIDE RECORDS SUMMARY | 2023-12-02 22:07 | External Medical Summary ---
Author Name Unknown Address Unknown Organization K0G:LABORATORY [facility] [address] - [address] [place] [address] Laboratory Report Ordering Provider Test Date Status ROLAND COLE 10/05/2023 08:52:55 Final Observation Date Value Abnormality Reference (Units ) Status WBC, Total 10/05/2023 08:52:55 10.77 4.00-10.8 0 (K/uL) Final RBC 10/05/2023 08:52:55 4.00 3.85-5.15 (M/uL) Final Hemoglobin 10/05/2023 08:52:55 11.8 Below low normal 12 .0-15.3 (g/dL) Final Anemia reflex testing trigge rs on a HGB < 12.0 for Females and HGB < 13.0 for Males in accordance with the WHO Anemia Guidelines
Anemia reflex testing triggers on a HGB < 12.0 for Females and HGB < 13.0 for Males in accordance with the WHO Anemia Guidelines HCT 10/05/2023 08:52:55 36.1 36.0-45.2 (%) Final MCV 10/05/2023 08:52:55 90.3 81.5-97.5 (fL) Final MCH 10/05/2023 08:52:55 29.5 27.0-34.0 (pg) Final MCHC 10/05/2023 08:52:55 32.7 32.0-36.0 (g/dL) Final RDW 10/05/2023 08:52:55 15.1 11.5-15.5 (%) Final Platelets 10/05/2023 08:52:55 198 140-400 (K /uL) Final MPV 10/05/2023 08:52:55 10.9 6.6-11.1 ( fL) Final Performing Location LABORATORY [facility] - [address] [place] [address]
--- OUTSIDE RECORDS SUMMARY | 2023-12-02 22:07 | External Medical Summary ---
Author Name Unknown Address Unknown Organization [id number]:LABORATORY [facility] - [address] [place] [address] Laboratory Report Ordering Provider Test Date Status ROLAND COLE 10/05/2023 08:52:55 Final Observation Date Value Abnormality Reference (Units ) Status Vitamin B12 10/05/2023 08:52:55 223 628-1635 (pg/mL) Final Performing Location LABORATORY [facility] - [address] [place] [address]
--- OUTSIDE RECORDS SUMMARY | 2023-12-02 22:07 | External Medical Summary ---
Author Name Unknown Address Unknown Organization K01[place] [facility] [place] [address] [place] [address] Laboratory Report Ordering Provider Test Date Status ROLAND COLE 10/06/2023 10:10:53 Final Observation Date Value Abnormality Reference (Units ) Status Glucose [Mass/volume] in Serum or Plasma --1 hour post dose glucose 10/06/2023 10:10:53 190 Above high normal 70-179 (mg/dL) Final Performing Location [facility] [facility] [place] [address] [place] [address]
--- OUTSIDE RECORDS SUMMARY | 2023-12-02 22:07 | External Medical Summary | Summary of Care ---
Author Name Unknown Organization [facility] Address [address] [facility] [place] [address] Phone [phone] Care Team Providers Care Chair Name Role Phone Victorina Waggoner Primary Care Provider Reason for Visit * Reason Comments Return Visit Encounter Details Date Type Department Care Team (Late st Contact Info) Description 09/08/2023 7:45 AM EDT Office Visit Gynecology/Obstetric s Stephen Rubio [address] [place] [phone] Keesha Macdonald PA-C [address] [place] [address] Supervision of high-risk , unspecified trimester*; Obesity, Class II, BMI 35-39.9; Obesity in , antepartum; Maternal asthma complicating ; H/O macrosomia in in prior , currently ; Previous delivery, antepartum condition or complication; Short interval between pregnancies complicating , antepartum Allergies Active Allergy Reactions Criticality Noted Date [...] 05/18/2023 09:45 AM Last Assessment & Plan: Wt Readings from Last 5 Encounters: 07/19/23 122.2 kg (269 lb 4.8 oz) 07/10/23 124.8 kg (275 lb 3.2 oz) 06/12/23 126 kg (277 lb 12.8 oz) 05/18/23 123.8 kg (273 lb) 05/03/23 122.5 kg (270 lb) -Early GCT WNL Elevated TSH 07/01/2022 Obesity, Class II, BMI [...] growth 07/21/2022 09/09/2022 Overview: Referred to [facility] for "borderline large for gestational age abdominal [...] PPD 01/21/2021,06/11/2018 Pneumococcal Conjugate Vacci ne, 20-valent ([id number]) 09/21/2021 Seasonal Influenza, PF, 6 M & [...] money to get more. Never true 08/16/2023 [place] Depression Scale Answer Date Recorded [place] Depression Scale Total 0 05/18/2023 The thought [...] No 08/16/2023 Does the household have a [facility] source of income? (Household - for ages [...] Sign Reading Time Taken Comments Blood Pressure 110/62 09/08/2023 7:25 AM EDT Pulse - - Temperature - - Respiratory Rate - - Oxygen Saturation - - Inhaled Oxygen Concentration - - Weight 129.3 kg (285 lb) 09/08/2023 7:25 AM EDT Height 182.9 cm (6' 0.01") 09/08/2023 7:25 AM ED T Body Mass Index 38.64 09/08/2023 7:25 AM EDT documented in this encounter Progress Notes * Keesha Macdonald PA-C - 09/08/2023 7:30 AM EDT 24w5d No complaints. Has ultrasound with MFM later today. Denies LOF, VB, contractions. Baby is active. Discussed delivery plan, pt states has decided on repeat C/S. Reviewed Tdap and third tri labs next appointment. RTC in 4 weeks Keesha Macdonald PA-C * Fatimah Flores LPN - 09/08/2023 7:25 AM EDT 24w5d seeing MFM today documented in this encounter Plan of Treatment Upcoming Encounters Date Type Department Care Team (Late st Contact Info) Description 09/08/2023 10:30 AM EDT Office Visit Lace Winder Obstetrics Maternal Medicine, [place] [address] [place] [address] Javi Puga, [address] [place] [address] 09/08/2023 10:30 AM EDT Imaging [facility] [address] [place] [address] 10/05/2023 7:50 AM EDT Laboratory Laboratory, Stephen [facility] [address] [place] [phone] Junior Rubio [address] [place] [address] 10/05/2023 8:00 AM EDT Imaging Maternal Medicine Imaging, Galina Rubio [address] [place] [phone] 10/05/2023 9:15 AM EDT Office Visit Gynecology/Obstetrics Stephen Rubio [address] [place] [address] Tara Liao CRNP [address] [place] [address] 2023 11:00 AM EDT Imaging Maternal Medicine Imaging, [place] [phone] 11/30/2023 8:00 AM EDT Imaging Maternal Medicine Imaging, [place] [phone] Scheduled Orders Name Type Priority Associated Diagnoses Orde r Schedule 50-G GESTATIONAL GLUCOSE, 1 HOUR Lab Routine Supervision of high-risk , unspecified trimester Expected: 09/22/2023 (Approximate), Expires: 09/07/2024 SYPHILIS ANTIBODY SCREEN WITH REFLEX TO RPR Lab Routine Supervision of high-risk , unspecified trimester Expected: 09/22/2023 (Approximate), Expires: 09/07/2024 CBC WITH WBC DIFFERENTIAL AND ANEMIA REFLEX WORKUP Lab Routine Supervision of high-risk , unspecified trimester Expected: 09/22/2023 (Approximate), Expires: 09/07/2024 Health Maintenance Due Date Last Done Comments [...] Supervision of high-risk , unspecified trimester- Primary Obesity, Class II, BMI 35-39.9 Morbid obesity Obesity in , antepartum Obesity complicating , [...] complicating , antepartum Supervision of other high-risk documented in this encounter Advance Directives * [...] the patient have Health Care Power of Crop Consultant? No * Full Code Date Activated Date Inactivated Comments 09/02/2022 5:18 PM 09/03/2022 5:55 PM This order r eflects the patients wishes and were consensually agreed upon. Question Answer Comments Discussion of Advance Directives occurred with: Patient Healthcare Agents on File Name Relationship Healthcare Agent Relationshi p Communication [place] Spouse Health Care Repr esentative (appointed verbally by patient or by statute hierarchy) Care Teams Chair Relationship Specialty Start Date End Date Victorina Waggoner CRNP [address] [place] [address] PCP - General Nurse Practitioner 03/05/21 documented as of this encounter
--- OUTSIDE RECORDS SUMMARY | 2023-12-02 22:07 | External Medical Summary ---
Author Name Unknown Address Unknown Organization K0G:LABORATORY [facility] [place] [address] - [address] [place] [address] Laboratory Report Ordering Provider Test Date Status ROLAND COLE 10/05/2023 08:52:55 Final Observation Date Value Abnormality Reference (Units ) Status Glucose [Moles/volume] in Serum or Plasma --1 hour post 50 g glucose PO 10/05/2023 08:52:55 156 Above high normal 70-129 (mg/dL) Final Performing Location LABORATORY [facility] [address] - [address] [place] [address]
--- OUTSIDE RECORDS SUMMARY | 2023-12-02 22:07 | External Medical Summary ---
Author Name Unknown Address Unknown Organization K01:LAB[facility]ATORY [facility] [place] - [address] [place] [address] Laboratory Report Ordering Provider Test Date Status ROLAND COLE 10/06/2023 12:10:05 Final Observation Date Value Abnormality Reference (Units ) Status Glucose [Mass/volume] in Serum or Plasma --3 hours post dose glucose 10/06/2023 12:10:05 93 70-139 (mg/dL) Final Performing Location LAB[facility]ATORY [facility] [place] - [address] [place] [address]
--- OUTSIDE RECORDS SUMMARY | 2023-12-02 22:07 | External Medical Summary ---
Author Name Unknown Address Unknown Organization K01:LABORATORY [facility] [place] - [address] [place] [address] Laboratory Report Ordering Provider Test Date Status ROLAND COLE 10/05/2023 08:52:55 Final Observation Date Value Abnormality Reference (Units ) Status Ferritin 10/05/2023 08:52:55 33 13-150 (ng /mL) Final Performing Location LAB[facility]ATORY [facility] - [address] [place] [address]
--- OUTSIDE RECORDS SUMMARY | 2023-12-02 22:08 | External Medical Summary | Summary of Care ---
Author Name Unknown Organization [facility] Address [address] [facility] [place] [address] Phone [phone] Care Team Providers Care Facilities Locator Name Role Phone Victorina Waggoner Primary Care Provider Reason for Visit * Reason Onset Date Comments Test Results Imaging Study 06/26/2023 Encounter Details Date Type Department Care Team (Late st Contact Info) Description 06/26/2023 Telephone Gynecology/Obstetrics [facility] [address] [place] [address] Skye Yoder MD [address] [place] [id number] Test Results Imaging Study Allergies Active Allergy Reactions Criticality Noted Date Comments Penicillins Other (Please comment) 02/02/2000 Rash Does not remember severity of reaction d/t being very young documented as of this encounter (statuses as of 06/26/2023) Medications Medication Sig Dispensed Refills Start Date [...] or Wheezing. 18 g 3 07/26/2022 Active Cephalexin 500 MG Oral Capsule Take 1 Capsule by mouth in the morning and 1 Capsule before bedtime. Do all this for 7 days. 14 Capsule 06/22/2023 06/29/2023 Active documented as of this encounter (statuses as of 06/26/2023) Active Problems Problem Noted Date Diagnosed Date Acute maxillary sinusitis 06/22/2023 13 weeks gestation [...] 05/18/2023 09:45 AM Last Assessment & Plan: CONSIDERATIONS: Discussed obstetrical risks associated with class II obesity (pre- BMI of 35 to 39.9) Reviewed that the accuracy of ultrasound at diagnosing anomalies is significantly decreased for women with an increased BMI. RECOMMENDATIONS: Recommend restricting weight gain during to 11-20 pounds. Patient should be referred for a nutrition consult. Recommend evaluation for signs and symptoms (snoring, excessive daytime sleepiness witnessed apnea or unexplained hypoxia) of obstructive sleep apnea. If any of these are present, referral to Sleep Medicine specialist for further evaluation should be considered. Recommend performing gestational diabetes mellitus screen now (if not performed at first visit) and repeat again at 26-28 weeks if early screen is normal. Recommend Maternal- Medicine ultrasound for anatomy at 20 weeks and for growth every 4 weeks thereafter. For patients with Class 2 obesity, we recommend weekly surveillance starting at 37 weeks. Elevated TSH 07/01/2022 Obesity, Class II, BMI 35-39.9 01/13/2022 Overview: Early glucola Growth u/s every 4 weeks after 20wk Weekly NST starting at 37w Allergic conjunctivitis 10/28/2016 Allergic rhinitis 10/28/2013 Estimated Date of Delivery Comme nts Yes 12/24/2023 Based on Ultraso und documented as of this encounter (statuses as of 06/26/2023) Resolved Problems Problem Noted Date Diagnosed Date Resolved Date intolerance to labor, delivered, current hospitalization 09/05/2022 09/09/2022 Status post delivery 09/04/2022 10/13/2022 Encounter for induction of labor 09/02/2022 09/09/2022 Group beta Strep positive 08/05/2022 Overview: Clindamycin Susceptible Penicillin G Susceptible Vancomycin Susceptible Encounter for ultrasound to assess growth 07/21/2022 09/09/2022 Overview: Referred to [facility] for "borderline large for gestational age [...] as of this encounter (statuses as of 06/26/2023) Immunizations Name Administration Dates Next Due DTaP Dipth/Tet/Acell Pertussis (Infanrix), Peds 06/20/2005,06/04/2001,06/01/2000,02/08/2000,01/05/2000 H1N1 2009 Influenza, IM 01/06/2009 HIB PRP-T, 4 dose (ActHib) 06/04/2001,,03/15/2000,12/08 HPV Vaccine, 4-Valent 12/02/2013 Hepatitis B, 0-19 yrs 08/10/2000,1999,10/08 IPV - Polio Virus Vaccine (Inact) 2005,06/01/2000,03/15/2000,12/08 MMR - Measles/Mumps/Rubella Vaccine 06/20/2005,0 02/20/2001 Meningococcal Conjugate Vacc ine (Menactra/Menveo) 02/01/2017,10/24/2011 PPD 01/21/2021,06/11/2018 Pneumococcal Conjugate Vacci ne, 20-valent ([id number]) 09/21/2021 Pneumococcal Conjugate Vacci ne, 7 Valent 06/01/2000,03/15/2000,01/05/2000 Seasonal Influenza, PF, 6 M & above, IM , (FluLaval or Fluzone) 11/16/2018,10/28/2016 10/28/2017 Seasonal Influenza, Quadriva lent, No Preserve, IM 10/29/2015,10/30/2014 10/31/2015 Seasonal Influenza, Split, I IV3, With Preserve, Inj 10/29/2013,11/15/2011,11/10/2010,11/06,12/07/2008,11/20/2006,01/05/20 06,02/09/2005,01/03/2005 10/29/2014 TDAP (age 10 and [...] the money to buy more. Never true 04/19/19 24 Within the past 12 months, t he food you bought just didn't last and you didn't have money to get more. Never true 04/19/2023 Jefferson Depression Scale Answer Date Recorded Jefferson Depression Scale Total 0 05/18/2023 The thought of harming myself has occurred to me . Never 05/18/2023 Estimated Date of Delivery Comme nts Yes [...] encounter Miscellaneous Notes * Telephone Encounter - Monie Galvan LPN - 06/26/2023 3:55 PM EDT Patient aware. Will call with further concerns. * Telephone Encounter - Monie Galvan LPN - 06/26/2023 3:48 PM EDT left message for patient to call office * Telephone Encounter - Monie Galvan LPN - 06/26/2023 3:44 PM EDT ----- Message from Skye Salcido MD sent at 06/26/2023 2:13 PM EDT ----- Please let her know pelvis US was normal/ unremarkable Single living fetus vertex position. 14.1w Normal heart rate 144 beats per minute. Thank you documented in this encounter Plan of Treatment Upcoming Encounters Date Type Department Care Team (Late st Contact Info) Description 07/10/2023 7:45 AM EDT Office Visit Gynecology/Obstetrics [facility] [address] [facility] [place] [address] Keesha Macdonald PA-C [address] [place] [address] 08/11/2023 10:30 AM EDT Office Visit Truck Leasing Manager Obstetrics Maternal Medicine, [place] [address] [place] [address] Javi Puga, [address] [place] [address] 08/11/2023 10:30 AM EDT Imaging Radiology [facility], [place] [address] [place] [address] Health Maintenance Due Date Last Done Comments GARDASIL-HPV IMMUNIZATION SE GLORIA (2 - 2-dose series) 06/02/2014 12/02/2013 Depression Screening 09/21/2022 09/21/2021 COVID-19 Vaccine (3 - 2022-2 4 season) 2022 02/11/2021, 01/21/2021 Influenza Vaccine (FLU shot) (Season Ended) 2023 11/16/2018, 11/16/2018, 10/28/2016, Additional history exists Gonorrhea / Chlamydia Screen 05/17/202412/2023, 02/26/2022, 01/13/2022, Additional history exists Pap Smear 06/21/2024 06/21/2021 DTaP,Tdap,and Td Vaccines (8 - Td or Tdap) 06/06/2032 06/06/2022, 10/24/2011, 06/20/2005, Additional history exists Hepatitis B Completed 08/10/2000, 11/07, 1999 MENINGOCOCCAL (MENACTRA/MENVEO) Completed 7, 10/24/2011 Pneumococcal [...] the patient have Health Care Power of Leather Polisher? No * Full Code Date Activated Date Inactivated Comments 09/02/2022 5:18 PM 09/03/2022 5:55 PM This order r eflects the patients wishes and were consensually agreed upon. Question Answer Comments Discussion of Advance Directives occurred with: Patient Healthcare Agents on File Name Relationship Healthcare Agent Relationshi p Communication Mio [place] Spouse Health Care Repr esentative (appointed verbally by patient or by statute hierarchy) Care Teams Facilities Locator Relationship Specialty Start Date End Date Victorina Waggoner CRNP [address] [place] [address] PCP - General Nurse Practitioner 03/05/21 documented as of this encounter
--- OUTSIDE RECORDS SUMMARY | 2023-12-02 22:08 | External Medical Summary | Summary of Care ---
Author Name Unknown Organization [facility] Address [address] [place] [facility] [place] [place] [address] Phone [phone] Care Team Providers Care Hire Car Driver Name Role Phone Victorina Waggoner Primary Care Provider Reason for Visit * Reason Onset Date Comments Advice 06/26/2023 Encounter Details Date Type Department Care Team (Late st Contact Info) Description 06/26/2023 Telephone Gynecology/Obstetrics, [address] [place] [address] Adan Robins MD [address] [place] [address] Advice Allergies Active Allergy Reactions Criticality Noted Date [...] assess growth 07/21/2022 09/09/2022 Overview: Referred to [facility] for "borderline large for gestational age [...] PPD 01/21/2021,06/11/2018 Pneumococcal Conjugate Vacci ne, 20-valent ([id number]) 09/21/2021 Pneumococcal Conjugate Vacci ne, 7 Valent [...] money to get more. Never true 04/19/2023 Clyo Depression Scale Answer Date Recorded Clyo Depression Scale Total 0 05/18/2023 The thought [...] Telephone Encounter - Lola Land RN - 06/26/2023 9:39 AM EDT Patient called back and was made aware of below. There are no provider openings at this time. Agreeable to US. Ordered and scheduled US for FHT. * Telephone Encounter - Skye Yoder MD - 06/26/2023 9:31 AM EDT She may come in for FHR check or US for FHR Thanks * Telephone Encounter - Cecilia Burdick RN - 06/26/2023 8:01 AM EDT T/C from pt reporting spotting on Monday, Monday and this am with wiping. Admits to occ cramping.Denies recent intercourse. Blood type AB+. Pt aware of ED bleeding precautions. To present to ED with heavy bleeding saturating a large pad inone hour, passing large egg sized clots or severe abd pain. Will call office with any further changes. Please review and advise. [place]'s pt. documented in this encounter Plan of Treatment Upcoming Encounters Date Type Department Care Team (Late st Contact Info) Description 06/26/2023 12:30 PM EDT Imaging Radiology [facility] [address] [facility] [place] [address] 07/10/2023 7:45 AM EDT Office Visit Gynecology/Obstetrics [facility] [address] [facility] [place] [address] Keesha Macdonald PA-C [address] [facility] [place] [address] 08/11/2023 10:30 AM EDT Office Visit Fruit Worker Obstetrics Maternal Medicine, [address] [address] Javi Puga [address] [place] [address] 08/11/2023 10:30 AM EDT Imaging Radiology [facility], [place] [address] [place], [place] [id number] Scheduled Orders Name Type Priority Associated Diagnoses Orde r Schedule US PREG SINGLE/1ST GEST, 14 WEEKS OR LATER Medical Imaging Routine Spotting in Expected: 06/26/2023, Expires: 07/26/2024 Health Maintenance Due Date Last Done Comments [...] as of this encounter Visit Diagnoses Diagnosis Spotting in - Primary Spotting complicating , unspecified as to episode of care or not applicable documented in this encounter Advance Directives * [...] the patient have Health Care Power of Bi Technical Lead? No * Full Code Date Activated Date Inactivated Comments 09/02/2022 5:18 PM 09/03/2022 5:55 PM This order r eflects the patients wishes and were consensually agreed upon. Question Answer Comments Discussion of Advance Directives occurred with: Patient Healthcare Agents on File Name Relationship Healthcare Agent Relationshi p Communication Mio [place] Spouse Health Care Repr esentative (appointed verbally by patient or by statute hierarchy) Care Teams Hire Car Driver Relationship Specialty Start Date End Date Victorina Waggoner CRNP [address] [place] [address] PCP - General Nurse Practitioner 03/05/21 documented as of this encounter
--- OUTSIDE RECORDS SUMMARY | 2023-12-02 22:08 | External Medical Summary ---
Author Name Unknown Address Unknown Organization : Laboratory Report Ordering Provider Test Date Status ROLAND COLE 06/12/2023 08:37:38 Final Observation Date Value Abnormality Reference (Units ) Status NUMBER OF FETUSES? 06/12/2023 08:37:38 1 Final ADVANCED MATERNAL AGE? 06/12/2023 08:37:38 NO Final ABNORMAL LACI? 06/12/2023 08:37:38 NO Final ABNORMAL US? 06/12/2023 08:37:38 NOT GIVEN Final PERSONAL/FAM HISTORY? 06/12/2023 08:37:38 NOT GIVEN Final INTERPRETATION 06/12/2023 08:37:38 SEE BELOW Final This specimen showed an expe cted representation of
chromosome 21, 18, and 13 material. Results were
not analyzed or reported for microdeletions. See
'Limitations' below. TRISOMY 21 (T21) 06/12/2023 08:37:38 Negative Final TRISOMY 18 (T18) 06/12/2023 08:37:38 Negative Final TRISOMY 13 (T13) 06/12/2023 08:37:38 Negative Final Y CHROMOSOME 06/12/2023 08:37:38 Not detected Final Y CHR. INTERPRETATION 06/12/2023 08:37:38 SEE BELOW Final Consistent with a female fet us. SEX CHROMOSOME 06/12/2023 08:37:38 No aneuploidy Final SEX CHROMOSOME INTERP 06/12/2023 08:37:38 SEE BELOW Final No apparent abnormality was detected. See
'Limitations' below. MICRODELETION 06/12/2023 08:37:38 Opted Out Final MICRODELETION INTERP 06/12/2023 08:37:38 SEE BELOW Final Results were not analyzed or reported for
microdeletions. GESTATIONAL AGE (IN WEEKS) 06/12/2023 08:37:38 12 Final GESTATIONAL AGE (IN DAYS) 06/12/2023 08:37:38 1 Final FRACTION 06/12/2023 08:37:38 12.55% Final LABORATORY COMMENTS 06/12/2023 08:37:38 SEE BELOW Final A portion of the testing was performed at [facility].
Laboratory results and submitted clinical
information reviewed by Aisha Amor M.Sc. Ph.D.,
[facility], [facility]. LIMITATIONS 06/12/2023 08:37:38 SEE BELOW Final QNatal(R) Advanced is a cell -free DNA screening
test that screens for increased risk of certain
chromosomal abnormalities that may cause
defects, including Trisomy 21 (Down
syndrome), Trisomy 18, Trisomy 13, and certain sex
chromosome abnormalities (i.e., 45,X, 47,XXY,
47,XXX, and 47,XYY), as well as sex. In
addition, if selected as an option, QNatal(R)
Advanced can screen for certain microdeletions
(i.e., 22q, 5p, 1p36, 15q, 11q, 8q, and 4p) that
may cause defects. This test does not assess
the risk of abnormalities such as neural
tube defects or ventral wall defects and should
not be considered in isolation from other clinical
findings and laboratory test results.
QNatal(R) Advanced has been validated in torres
pregnancies for the trisomies and sex chromosome
abnormalities listed above, as well as for
microdeletions, and for the determination of
sex. Sex chromosome aneuploidy analysis is only
performed in torres pregnancies. This screening
test has also been validated in twin pregnancies
for the trisomies listed above and for
microdeletions, but not for the sex chromosome
abnormalities due to limited data. This screening
test has not been validated in higher order
pregnancies (more than two) because limited data
is available. Sex chromosomal aneuploidy results
issued for pregnancies confirmed to be of multiple
gestations are not valid and should be
disregarded.
Microdeletion screening is limited to the
specified microdeletion regions (see
'Methodology'). The Y chromosome is analyzed for
the determination of sex. The sensitivity
and specificity of sex determination
analysis may be less than that of the Trisomy 21,
18, and 13 analysis and this determination can be
confounded by vanishing twin syndrome in
pregnancies that were originally multiple
gestation pregnancies. It should be noted that
QNatal(R) Advanced is a quantitative analysis of
maternal and placental cfDNA. As a result, the
accuracy of screening results may be affected by
the presence of chromosome abnormalities or
microdeletions that are maternal or confined
placental in origin. SPECIFICATIONS 06/12/2023 08:37:38 SEE BELOW Final Sensitivity Specificity
T21 >99.9% >99.9%
T18 >99.9% >99.9%
T13 >99.9% >99.9%
Accuracy
Y >99.9%
Performance of the QNatal Advanced
laboratory-developed test (LDT) has been
determined based on internal analytical
assessment. METHODOLOGY 06/12/2023 08:37:38 SEE BELOW Final Circulating cell-free (cf) D NA was isolated from
plasma followed by detection on a massively
parallel sequencing platform. Bioinformatic
analysis was performed to determine the
representation of chromosomes 21, 18, 13, X and Y
in circulating cell-free DNA. The representation
of sequences from the critical regions involved in
1p36 microdeletion syndrome (1p36),
Cartagena-Hirschhorn syndrome (4p), Cri-du-chat
syndrome (5p), Julieta-Giedion syndrome (8q),
Calli syndrome (11q), Prader Willi
syndrome/Angelman syndrome (15q), and DiGeorge
syndrome (22q) is evaluated for the detection of
microdeletions if requested. Performance
characteristics refer to the analytical
performance of this screening test. This screening
test is performed pursuant to a license agreement
with [employer].
QNatal Advanced is a laboratory developed test
that has been developed and validated, pursuant to
the Clinical Laboratory Improvements Amendments of
1988 (CLIA), and as such it has not been reviewed
by FDA.
Test performed by [facility]
[address],
[place] [address]

White Sugar Syrup Operator: Radha Oliveros MD,PHD,MARKUS
Test Reported by [facility],
[employer] [place],
[address] [place], [place]
Sherman Carvalho M.D., Ph.D., Director of Laboratories
, CLIA [id number] Performing Location
--- OUTSIDE RECORDS SUMMARY | 2023-12-02 22:08 | External Medical Summary | Summary of Care ---
Author Name Unknown Organization [facility] Address [address] [facility] [place] [address] Phone [phone] Care Team Providers Care Brick Grader Name Role Phone Victorina Waggoner Primary Care Provider Reason for Visit * Reason Comments Return Visit Encounter Details Date Type Department Care Team (Late st Contact Info) Description 06/12/2023 7:45 AM EDT Office Visit Gynecology/Obstetric s [facility] [address] [place] [address] Keesha Macdonald PA-C [address] [place] [address] High risk teen in first trimester*; Obesity in , antepartum; Maternal asthma complicating ; H/O macrosomia in in prior , currently ; Previous delivery, antepartum condition or complication; Short interval between pregnancies complicating , antepartum Allergies Active Allergy Reactions Criticality Noted Date Comments Penicillins Other (Please comment) 02/02/2000 Rash Does not remember severity of reaction d/t being very young documented as of this encounter (statuses as of 06/12/2023) Medications Medication Sig Dispensed Refills Start Date End Date Status Levocetirizine Dihydrochloride 5 MG Oral Tablet Use 1 tablet daily each evening for allergic nasal symptoms 30 Tablet 5 06/21/2021 Active 19 29-1 MG Oral Tablet Chewable Take by mouth . 0 Active Ventolin HFA 108 (90 Base) MCG/ACT Inhalation Aerosol Solution Inhale 2 Puffs by mouth every 4 hours as needed for Cough, Shortness of Breath or Wheezing. 18 g 3 07/26/2022 Active documented as of this encounter (statuses as of 06/12/2023) Active Problems Problem Noted Date Diagnosed Date Short interval between pregn ancies complicating , [...] as of this encounter (statuses as of 06/12/2023) Resolved Problems Problem Noted Date Diagnosed Date Resolved Date intolerance to labor, delivered, current hospitalization 09/05/2022 09/09/2022 Status post delivery 09/04/2022 10/13/2022 Encounter for induction of labor 09/02/2022 09/09/2022 Group beta Strep positive 08/05/2022 Overview: Clindamycin Susceptible Penicillin G Susceptible Vancomycin Susceptible Encounter for ultrasound to assess growth 07/21/2022 09/09/2022 Overview: Referred to [facility] for "borderline large for gestational [...] consider repeat testing due to large AC. [facility] ultrasound scheduled on 08/08/2022 Last Assessment [...] as of this encounter (statuses as of 06/12/2023) Immunizations Name Administration Dates Next Due DTaP Dipth/Tet/Acell Pertussis (Infanrix), Peds 06/20/2005 H1N1 2009 Influenza, IM 01/06/2009 HPV Vaccine, 4-Valent 12/02/2013 IPV - Polio Virus Vaccine (Inact) 06/20/2005 MMR - Measles/Mumps/Rubella Vaccine 06/20/2005 Meningococcal Conjugate Vacc ine (Menactra/Menveo) 02/01/2017,10/24/2011 PPD 01/21/2021,06/11/2018 Pneumococcal Conjugate Vacci ne, 20-valent ([id number]) 09/21/2021 Seasonal Influenza, PF, 6 M & [...] money to get more. Never true 04/19/2023 Silverdale Depression Scale Answer Date Recorded [place] Depression Scale Total 0 05/18/2023 The thought [...] Sign Reading Time Taken Comments Blood Pressure 104/66 06/12/2023 7:38 AM EDT Pulse - - Temperature - - Respiratory Rate - - Oxygen Saturation - - Inhaled Oxygen Concentration - - Weight 126 kg (277 lb 12.8 oz) 06/12/2023 7:38 A M EDT Height 182.9 cm (6') 06/12/2023 7:38 AM EDT Body Mass Index 37.68 06/12/2023 7:38 AM EDT documented in this encounter Progress Notes * Keesha Macdonald PA-C - 06/12/2023 7:55 AM EDT 12w1d No concerns. Would like to NIPT genetic testing. Order placed. Completing 1 hour gtt today. Unable to hear FHT by doppler -- u/s ordered FHT 155 bpm. RTC in 4 weeks Keesha Macdonald PA-C documented in this encounter Nursing Notes * Lola Land RN - 06/12/2023 7:39 AM EDT Patient here for YARELY visit 12w1d No concerns Lola Land RN documented in this encounter Plan of Treatment Upcoming Encounters Date Type Department Care Team (Late st Contact Info) Description 07/10/2023 7:45 AM EDT [facility] [address] [place] [address] Keesha Macdonald PA-C [address] [place] [address] 08/11/2023 10:30 AM EDT Office Visit Special Duty Nurse Obstetrics Maternal Medicine, [place] [address] [place] [address] Javi Puga, [address] [place] [address] 08/11/2023 10:30 AM EDT Imaging [place] [address] [place] [address] Pending Results Name Type Priority Associated Diagnoses Date /Time US PREG LIMITED 1 OR MORE FETUSES Medical Imaging Routine High risk teen in first trimester 06/12/2023 8:07 AM EDT Scheduled Orders Name Type Priority Associated Diagnoses Orde r Schedule QNATAL ADVANCED (QUEST) Lab Routine High risk teen in first trimester Expected: 06/12/2023, Expires: 06/11/2024 US PREG LIMITED 1 OR MORE FETUSES Medical Imaging Routine High risk teen in first trimester Expected: 06/12/2023, Expires: 07/12/2024 Health Maintenance Due Date Last Done Comments [...] this encounter Visit Diagnoses Diagnosis High risk teen in first trimester- Primary Obesity in , antepartum Obesity [...] high-risk documented in this encounter Advance Directives Latest Code Status on File Code Status Date Activated Date Inactivated Comments Full Code 09/03/2022 5:55 PM 09/03/2022 9:14 PM This order reflects the patients wishes and were consensually agreed upon. Question Answer Comments Discussion of Advance Directives occurred with: Not Discussed due to patient's condition Does the patient have a Living Will? No Does the patient have Health Care Power of Program Director Group Work? No Code Status History Code Status Date Activated Date Inactivated Comments Full Code 09/02/2022 5:18 PM 09/03/2022 5:55 PM This order reflects the patients wishes and were consensually agreed upon. Question Answer Comments Discussion of Advance Directives occurred with: Patient Healthcare Agents on File Name Relationship Healthcare Agent Relationshi p Communication Mio [place] Spouse Health Care Repr esentative (appointed verbally by patient or by statute hierarchy) Care Teams Brick Grader Relationship Specialty Start Date End Date Victorina Waggoner CRNP [address] [place] [address] PCP - General Nurse Practitioner 03/05/21 documented as of this encounter
--- OUTSIDE RECORDS SUMMARY | 2023-12-02 22:08 | External Medical Summary | Summary of Care ---
Author Name Unknown Organization [facility] Address [address] [facility] [place] [address] Phone [phone] Care Team Providers Care Scarf Gluer Name Role Phone Victorina Waggoner Primary Care Provider Reason for Visit * Reason Onset Date Comments Test Results Imaging Study 06/26/2023 Encounter Details Date Type Department Care Team (Late st Contact Info) Description 06/26/2023 Telephone Gynecology/Obstetrics [facility] [address] [place] [address] Skye Yoder MD [address] [place] [address] Test Results Imaging Study Allergies Active Allergy [...] growth 07/21/2022 09/09/2022 Overview: Referred to [facility] for "borderline large for gestational age [...] PPD 01/21/2021,06/11/2018 Pneumococcal Conjugate Vacci ne, 20-valent ([id number]) 09/21/2021 Pneumococcal Conjugate Vacci ne, 7 Valent [...] money to get more. Never true 04/19/2023 [place] Depression Scale Answer Date Recorded [place] Depression Scale Total 0 05/18/2023 The thought [...] Visit Gynecology/Obstetrics Stephen Rubio [address] [facility] [place] [address] Keesha Macdonald PA-C [address] [place] [address] 08/11/2023 10:30 AM EDT Office Visit Game Designer/Creative Director Obstetrics Maternal Medicine, [place] [address] [place] [address] Javi Puga, [address] [place] [address] 08/11/2023 10:30 AM EDT Imaging Radiology [facility], [place] [address] [place] [address] Health Maintenance Due Date Last Done Comments [...] the patient have Health Care Power of Ripshear Operator? No * Full Code Date Activated Date Inactivated Comments 09/02/2022 5:18 PM 09/03/2022 5:55 PM This order r eflects the patients wishes and were consensually agreed upon. Question Answer Comments Discussion of Advance Directives occurred with: Patient Healthcare Agents on File Name Relationship Healthcare Agent Relationshi p Communication Mio [place] Spouse Health Care Repr esentative (appointed verbally by patient or by statute hierarchy) Care Teams Scarf Gluer Relationship Specialty Start Date End Date Victorina Waggoner CRNP [address] [place] [address] PCP - General Nurse Practitioner 03/05/21 documented as of this encounter
--- OUTSIDE RECORDS SUMMARY | 2023-12-02 22:08 | External Medical Summary ---
Author Name Unknown Address Unknown Organization K0G[facility] [address] [place] [id number] Laboratory Report Ordering Provider Test Date Status RODNEY LÓPEZ 06/12/2023 08:37:38 Final Observation Date Value Abnormality Reference (Units ) Status Glucose [Moles/volume] in Serum or Plasma --1 hour post 50 g glucose PO 06/12/2023 08:37:38 91 70-129 (mg/dL) Final Performing Location [facility] [address] [place] [id number]
--- OUTSIDE RECORDS SUMMARY | 2023-12-02 22:08 | External Medical Summary | Summary of Care ---
Author Name Unknown Organization [facility] Address [address] [place] [address] Phone [phone] Care Team Providers Care Hat Measurer Name Role Phone Victorina Waggoner Primary Care Provider Reason for Visit * Evaluate & Treat - Unlimited Visits (Within 10 days (routine)) - Authorized Specialty Diagnoses / Procedures Referred By Contac t Referred To Contact Obstetrics/Gynecology / Maternal Medicine Diagnoses Supervision of high-risk , first trimester Class 2 obesity Maternal asthma complicating Short interval between pregnancies complicating , antepartum History of section complicating Lakesha Tasng, CNM [address] [place] [address] Referral ID Status Reason Start Date Expiration Date Visits Requested Visits Authorized [id number] Authorized Specialty Services Required 05/18/[phone] Encounter Details Date Type Department Care Team (Late st Contact Info) Description 08/11/2023 10:30 AM EDT Office Visit Sack Sorter Obstetrics Maternal Medicine, [place] [address] [place] [address] Javi Puga, [address] [place], [place] [id number] Obesity in , antepartum*; Obesity, Class II, BMI 35-39.9; Supervision of high-risk , unspecified trimester; 20 weeks gestation of ; Encounter for anatomic survey Allergies Active Allergy Reactions Criticality Noted Date Comments Penicillins Other (Please comment) 02/02/2000 Rash Does not remember severity of reaction d/t being very young documented as of this encounter (statuses as of 08/11/2023) Medications Medication Sig Dispensed Refills Start Date [...] as of this encounter (statuses as of 08/11/2023) Active Problems Problem Noted Date Diagnosed Date [...] as of this encounter (statuses as of 08/11/2023) Resolved Problems Problem Noted Date Diagnosed Date Resolved Date intolerance to labor, delivered, current hospitalization 09/05/2022 09/09/2022 Status post delivery 09/04/2022 10/13/2022 Encounter for induction of labor 09/02/2022 09/09/2022 Group beta Strep positive 08/05/2022 Overview: Clindamycin Susceptible Penicillin G Susceptible Vancomycin Susceptible Encounter for ultrasound to assess growth 07/21/2022 09/09/2022 Overview: Referred to [facility] for "borderline large for gestational age [...] as of this encounter (statuses as of 08/11/2023) Immunizations Name Administration Dates Next Due DTaP Dipth/Tet/Acell Pertussis (Infanrix), Peds 06/20/2005 H1N1 2009 Influenza, IM 01/06/2009 HPV Vaccine, 4-Valent 12/02/2013 IPV - Polio Virus Vaccine (Inact) 06/20/2005 MMR - Measles/Mumps/Rubella Vaccine 06/20/2005 Meningococcal Conjugate Vacc ine (Menactra/Menveo) 02/01/2017,10/24/2011 PPD 01/21/2021,06/11/2018 Pneumococcal Conjugate Vacci ne, 20-valent ([id number]) 09/21/2021 Seasonal Influenza, PF, 6 M & [...] money to get more. Never true 04/19/2023 [place] Depression Scale Answer Date Recorded [place] Depression Scale Total 0 05/18/2023 The thought of harming myself has occurred to me . Never 05/18/2023 Childcare Answer Date Recorded Do you feel overwhelmed with taking care of a child, family member or friend? No 04/19/2023 Does your family need help f inding childcare? (Household - for ages 0-17 years) Not on file 04/19/2023 Clothing Answer Date Recorded Have you been unable to get clothing when it was really needed? No 04/19/2023 Is your family able to get c lothes or diapers when needed? (Household - for ages 0-17 years) Not on file 04/19/2023 Personal Safety Answer Date Recorded Do you feel unsafe or have concerns for your saf ety? No 04/19/2023 Do you have concerns for you r family's safety? (Household - for ages 0-17 years) Not on file 04/19/2023 Utilities Answer Date Recorded Do you have trouble paying y our heating, water, or electric bill? No 04/19/2023 Is your family able to pay t he heat, water, or electric bill? (Household - for ages 0-17 years) Not on file 04/19/2023 Does your family have access to good internet? (Household - for ages 0-17 years) Not on file 04/19/2023 Employment Status Answer Date Recorded Are you unemployed or without regular income? No 04/19/2023 Does the household have a re gular source of income? (Household - for ages 0-17 years) Not on file 04/19/2023 Social Connections Answer Date Recorded How often do you feel lonely or isolated from th ose around you? Never 04/19/2023 Financial Resource Strain Answer Date R ecorded Do you have any trouble payi ng for your medications, or do you think you might in the future? No 04/19/2023 Does your family have troubl e paying for medicine? (Household - for ages 0-17 years) Not on file 04/19/2023 Transportation Needs Answer Date Record ed READ ONLY Do you have troubl e getting a ride to medical visits or work? Never True 04/19/2023 Does your family have a hard time getting a ride to doctors visits? (Household - for ages 0-17 years) Not on file 04/19/2023 Has lack of transportation k ept you from medical appointments, meetings, work, or from getting things needed for daily living? Check all that apply. (Adult - for ages 18 years and over) Not on file 04/19/2023 Do you (or your family) have trouble finding or paying for a ride (transportation)? (Household - for ages 0-17 years) Not on file 04/19/2023 Housing Stability Answer Date Recorded Do you currently live in a s helter or have no steady place to sleep at night? No 04/19/2023 READ ONLY Do you think you a re at risk of becoming homeless? No 04/19/2023 Does your family worry about paying for your home or becoming homeless? (Household - for ages 0-17 years) Not on file 0 04/19/2023 Are you homeless or worried that you might be in the future? (Adult - for ages 18 years and over) Not on file Are you (or your family) isreal eless or worried that you might be in the future? (Household - for ages 0-17 years) Not on file Food Insecurity Answer Date Recorded Do you need food for this week? No 04/19/2023 Are you able to get enough f ood for your family? (Household - for ages 0-17 years) Not on file 04/19/2023 Does your family need food t his week? (Household - for ages 0-17 years) Not on file 04/19/2023 Do you always have enough fo od for your family? (Household - for ages 0-17 years) Not on file 04/19/2023 Estimated Date of Delivery Comme nts Yes [...] as of this encounter Progress Notes * Shawn Austin MD - 08/11/2023 12:00 PM EDT MATERNAL MEDICINE VISIT Janey Loyola, 22 year old is at 20w5d who presents to [facility] for an ultrasound and follow-up of her high risk . REVIEW OF SYSTEMS: nausea/vomitting: denies reports movement: yes abdominal pain/tenderness/cramping/contractions: no vaginal bleeding: no vaginal leaking of fluid: no PHYSICAL EXAM: General: pleasant, alert and oriented Neuro: mood and affect normal, alert and oriented, no acute distress She is being seen today by Maternal- Medicine for the following reasons: Problem List Items Addressed This Visit Digestive Obesity in , antepartum - Primary Wt Readings from Last 5 Encounters: 07/19/23 122.2 kg (269 lb 4.8 oz) 07/10/23 124.8 kg (275 lb 3.2 oz) 06/12/23 126 kg (277 lb 12.8 oz) 05/18/23 123.8 kg (273 lb) 05/03/23 122.5 kg (270 lb) -Early GCT WNL Other Obesity, Class II, BMI 35-39.9 Supervision of high-risk , unspecified trimester -LR Qnatal Other Visit Diagnoses 20 weeks gestation of Encounter for anatomic survey Ultrasound Report Summary anatomy appears normal for visualized structures. size is normal for gestational age, EFW at 19 %, AC 32%. Amniotic Fluid is normal The ultrasound report for today's visit will be scanned into the [facility] records. Please see separate report for details. We reviewed today's ultrasound findings. (For full report, please refer to ultrasound report provided separately). Ms. Loyola's questions were answered to her satisfaction. Cell free DNA screening: low risk result RECOMMENDATIONS: Recommend RTC In 3 weeks for completion of anatomy and suboptimally visualized structures today Otherwise serial growth scans Thank you for allowing us to participate in the care of this patient. Please call with any questions. The patient's history, examination and plan of care were discussed with Dr. Puga, who saw her with me. Shawn Austin MD 08/11/2023 12:03 PM I have discussed the patient's management with the medical trainee and agree with the note. Please refer to the documented findings and plan of care. This patient's visit today consisted of an evaluation. I was present and confirmed the findings of the history and exam. Javi Puga DO documented in this encounter Miscellaneous Notes * Assessment & Plan Note - Shawn Austin MD - 08/11/2023 12:01 PM EDTAssociated Problem(s): Obesity in , antepartum Wt Readings from Last 5 Encounters: 07/19/23 122.2 kg (269 lb 4.8 oz) 07/10/23 124.8 kg (275 lb 3.2 oz) 06/12/23 126 kg (277 lb 12.8 oz) 05/18/23 123.8 kg (273 lb) 05/03/23 122.5 kg (270 lb) -Early GCT WNL * Assessment & Plan Note - Shawn Austin MD - 08/11/2023 12:00 PM EDTAssociated Problem(s): Supervision of high-risk , unspecified trimester -LR Qnatal documented in this encounter Plan of Treatment Upcoming Encounters Date Type Department Care Team (Late st Contact Info) Description 09/08/2023 10:30 AM EDT Office Visit Sack Sorter Obstetrics Maternal Medicine, [place] [address] [place] [address] Javi Puga DO [address] [place] [address] 09/08/2023 10:30 AM EDT Imaging Radiology [facility] [place] [address] [place] [address] 10/05/2023 8:00 AM EDT Imaging Maternal Medicine Imaging, [place] [address] [place] [phone] 2023 11:00 AM EDT Imaging Maternal Medicine Imaging, [place] [address] [place] [id number] 11/30/2023 8:00 AM EDT Imaging Maternal Medicine Imaging, [facility] [address] [facility] [place] [address] Scheduled Orders Name Type Priority Associated Diagnoses Orde r Schedule MFM US PREG FOLLOW UP EACH FETUS Medical Imaging Routine Obesity in , antepartum Obesity, Class II, BMI 35-39.9 6 Occurrences starting 08/11/2023 until 02/11/2024 Health Maintenance Due Date Last Done Comments [...] Obesity, Class II, BMI 35-39.9 Morbid obesity Supervision of high-risk , unspecified trimester 20 weeks gestation of state, incidental Encounter for anatomic survey documented in this encounter Additional Health Concerns Infection Onset Date Last Indicated Resolved Time ((Group A Strep) Strep pyogenes) 07/19/2023 07/19/19 24 documented as of this encounter Advance Directives * [...] the patient have Health Care Power of Information Technology Intern? No * Full Code Date Activated Date [...] patient or by statute hierarchy) Care Teams Hat Measurer Relationship Specialty Start Date End Date Victorina Waggoner CRNP [address] [place] [address] PCP - General Nurse Practitioner 03/05/21 documented as of this encounter
--- OUTSIDE RECORDS SUMMARY | 2023-12-02 22:08 | External Medical Summary | Summary of Care ---
Author Name Unknown Organization [facility] Address [address] [place] [place] [address] Phone [phone] Care Team Providers Care Electric Motor Repair Supervisor Name Role Phone Victorina Waggoner Primary Care Provider Reason for Visit * Reason Comments Outpatient Testing Encounter Details Date Type Department Care Team (Late st Contact Info) Description 06/12/2023 8:00 AM EDT Laboratory Laboratory, [facility] [address] [facility] [place] [phone] [facility] [address] [facility] [place] [address] Supervision of high-risk , first trimester; Class 2 obesity; High risk teen in first trimester Allergies Active Allergy Reactions Criticality Noted [...] assess growth 07/21/2022 09/09/2022 Overview: Referred to [facility] for "borderline large for gestational age abdominal [...] consider repeat testing due to large AC. [facility] ultrasound scheduled on 08/08/2022 Last Assessment & [...] PPD 01/21/2021,06/11/2018 Pneumococcal Conjugate Vacci ne, 20-valent ([id number]) 09/21/2021 Seasonal Influenza, PF, 6 M & [...] money to get more. Never true 04/19/2023 [place] Depression Scale Answer Date Recorded [place] Depression Scale Total 0 05/18/2023 The thought [...] 07/10/2023 7:45 AM EDT Office Visit Gynecology/Obstetrics [facility] [address] [place] [address] Keesha Macdonald PA-C [address] [place] [address] 08/11/2023 10:30 AM EDT Office Visit Tenant Relations Coordinator Obstetrics Maternal Medicine, [place] [address] [place] [address] Javi Puga, [address] [place] [address] 08/11/2023 10:30 AM EDT Imaging Radiology [facility], [place] [address] [place], [place] [phone] Pending Results Name Type Priority Associated Diagnoses Date /Time 50-G GESTATIONAL GLUCOSE, 1 HOUR Lab Routine Supervision of high-risk , first trimester Class 2 obesity 06/12/2023 8:37 AM EDT QNATAL ADVANCED (QUEST) Lab Routine High risk teen in first trimester 06/12/2023 8:37 AM EDT Health Maintenance Due Date Last [...] Visit Diagnoses Diagnosis Supervision of high-risk , first trimester Class 2 obesity High risk teen in first trimester documented in this encounter Advance Directives Latest [...] the patient have Health Care Power of Concession Worker? No Code Status History Code Status Date Activated Date Inactivated Comments Full Code 09/02/2022 5:18 PM 09/03/2022 5:55 PM This order reflects the patients wishes and were consensually agreed upon. Question Answer Comments Discussion of Advance Directives occurred with: Patient Healthcare Agents on File Name Relationship Healthcare Agent Relationshi p Communication Mio [place] Spouse Health Care Repr esentative (appointed verbally by patient or by statute hierarchy) Care Teams Electric Motor Repair Supervisor Relationship Specialty Start Date End Date Victorina Waggoner CRNP [address] [place] [address] PCP - General Nurse Practitioner 03/05/21 documented as of this encounter
--- OUTSIDE RECORDS SUMMARY | 2023-12-02 22:08 | External Medical Summary | Summary of Care ---
Author Name Unknown Organization [facility] Address [address] [place] [address] Phone [phone] Care Team Providers Care Account Group Supervisor Name Role Phone Victorina Waggoner Primary Care Provider Reason for Visit * Reason Onset Date Comments Advice 06/26/[address] Shin in Encounter Details Date Type Department Care Team (Late st Contact Info) Description 06/26/2023 Telephone Gynecology/Obstetrics, [address] [place] [address] Adan Robins MD [address] [facility] [address] Advice (Rev with Dr. Alejo) Allergies Active Allergy Reactions Criticality Noted Date [...] assess growth 07/21/2022 09/09/2022 Overview: Referred to [facility] for "borderline large for gestational age [...] PPD 01/21/2021,06/11/2018 Pneumococcal Conjugate Vacci ne, 20-valent ([id number]) 09/21/2021 Seasonal Influenza, PF, 6 M & [...] money to get more. Never true 04/19/2023 [place] Depression Scale Answer Date Recorded [place] Depression Scale Total 0 05/18/2023 The thought [...] Description 06/26/2023 12:30 PM EDT Imaging Radiology [facility] [address] [place] [address] 07/10/2023 7:45 AM EDT Office Visit Gynecology/Obstetrics [facility] [address] [place] [address] Keesha Macdonald PA-C [address] [place] [address] 08/11/2023 10:30 AM EDT Office Visit Flooring Machine Operator Obstetrics Maternal Medicine, [place] [address] [place] [address] Javi Puga, [address] [place] [address] 08/11/2023 10:30 AM EDT Imaging [facility], [place] [address] [place] [address] Scheduled Orders Name Type Priority Associated Diagnoses [...] the patient have Health Care Power of Brick Cleaner? No * Full Code Date Activated Date [...] patient or by statute hierarchy) Care Teams Account Group Supervisor Relationship Specialty Start Date End Date Victorina Waggoner CRNP [address] [place] [address] PCP - General Nurse Practitioner 03/05/21 documented as of this encounter
--- OUTSIDE RECORDS SUMMARY | 2023-12-02 22:08 | External Medical Summary | Summary of Care ---
Author Name Unknown Organization [facility] Address [address] [facility] [place] [address] Phone [phone] Care Team Providers Care Banking Center Manager Name Role Phone Victorina Waggoner Primary Care Provider Reason for Visit * Reason Comments Return Visit Encounter Details Date Type Department Care Team (Late st Contact Info) Description 07/10/2023 7:45 AM EDT Office Visit Gynecology/Obstetric s Stephen [place] [address] [place] [address] Keesha Macdonald PA-C [address] [place] [address] Supervision of high-risk , unspecified trimester*; Obesity [...] as of this encounter (statuses as of 07/10/2023) Medications Medication Sig Dispensed Refills Start Date [...] as of this encounter (statuses as of 07/10/2023) Active Problems Problem Noted Date Diagnosed Date [...] as of this encounter (statuses as of 07/10/2023) Resolved Problems Problem Noted Date Diagnosed Date Resolved Date intolerance to labor, delivered, current hospitalization 09/05/2022 09/09/2022 Status post delivery 09/04/2022 10/13/2022 Encounter for induction of labor 09/02/2022 09/09/2022 Group beta Strep positive 08/05/2022 Overview: Clindamycin Susceptible Penicillin G Susceptible Vancomycin Susceptible Encounter for ultrasound to assess growth 07/21/2022 09/09/2022 Overview: Referred to [facility] for "borderline large for gestational [...] as of this encounter (statuses as of 07/10/2023) Immunizations Name Administration Dates Next Due DTaP Dipth/Tet/Acell Pertussis (Infanrix), Peds 06/20/2005 H1N1 2009 Influenza, IM 01/06/2009 HPV Vaccine, 4-Valent 12/02/2013 IPV - Polio Virus Vaccine (Inact) 06/20/2005 MMR - Measles/Mumps/Rubella Vaccine 06/20/2005 Meningococcal Conjugate Vacc ine (Menactra/Menveo) 02/01/2017,10/24/2011 PPD 01/21/2021,06/11/2018 Pneumococcal Conjugate Vacci ne, 20-valent ([id number]) 09/21/2021 Seasonal Influenza, PF, 6 M & [...] money to get more. Never true 04/19/2023 [place] Depression Scale Answer Date Recorded [place] Depression Scale Total 0 05/18/2023 The thought [...] - Inhaled Oxygen Concentration - - Weight 124.8 kg (275 lb 3.2 oz) 07/10/2023 7:55 AM EDT Height 182.9 cm (6') 07/10/2023 7:55 AM EDT Body Mass Index 37.32 07/10/2023 7:55 AM EDT documented in this encounter Progress Notes * Keesha Macdonald PA-C - 07/10/2023 8:12 AM EDT 16w1d No concerns. Denies VB, LOF. No quickening. Anatomy with MFM. NIPT low risk girl! Counseled on MSAFP, declines today. RTC in 4 weeks Keesha Macdonald PA-C documented in this encounter Nursing Notes * Lola Land RN - 07/10/2023 7:55 AM EDT Patient here for YARELY visit 16w1d No concerns Lola Land RN documented in this encounter Plan of Treatment Upcoming Encounters Date Type Department Care Team (Late st Contact Info) Description 08/11/2023 10:30 AM EDT Office Visit Timber Management Assistant Obstetrics M[facility] Medicine, [place] [address] [facility] [address] Javi Puga DO [address] [facility] [address] 08/11/2023 10:30 AM EDT Imaging Radiology [facility] [place], [place] [address] [facility] [place] [address] 08/11/2023 1:45 PM EDT Office Visit Gynecology/Obstetrics [address] [place] [address] Keesha Macdonald PA-C [address] [place] [address] Health Maintenance Due Date Last Done Comments [...] Completed 08/10/2000, 11/07, 1999 MENINGOCOCCAL (MENACTRA/MENVEO) Completed , 10/24/2011 Pneumococcal [...] the patient have Health Care Power of Buzzsaw Operator Helper? No * Full Code Date Activated Date [...] patient or by statute hierarchy) Care Teams Banking Center Manager Relationship Specialty Start Date End Date Victorina Waggoner CRNP [address] [place] [address] PCP - General Nurse Practitioner 03/05/21 documented as of this encounter
--- OUTSIDE RECORDS SUMMARY | 2023-12-02 22:08 | External Medical Summary | Summary of Care ---
Author Name Unknown Organization [facility] Address [address] [facility] [place] [address] Phone [phone] Care Team Providers Care Home Care Administrator Name Role Phone Victorina Waggoner Primary Care Provider Reason for Visit * Reason Comments Acute Encounter Details Date Type Department Care Team (Late st Contact Info) Description 06/22/2023 4:00 PM EDT Telemedicine Family Practice [facility] [address] [facility] [place] [address] Victorina Waggoner CRNP [address] [facility] [place] [address] Acute maxillary sinusitis, recurrence not specified*; 13 weeks gestation of Allergies Active Allergy Reactions Criticality Noted Date Comments Penicillins Other (Please comment) 02/02/2000 Rash Does not remember severity of reaction d/t being very young documented as of this encounter (statuses as of 06/22/2023) Medications Medication Sig Dispensed Refills Start Date [...] all this for 7 days. 14 Capsule 0 06/22/2023 06/29/2023 Active documented as of this encounter (statuses as of 06/22/2023) Active Problems Problem Noted Date Diagnosed Date [...] as of this encounter (statuses as of 06/22/2023) Resolved Problems Problem Noted Date Diagnosed Date Resolved Date intolerance to labor, delivered, current hospitalization 09/05/2022 09/09/2022 Status post delivery 09/04/2022 10/13/2022 Encounter for induction of labor 09/02/2022 09/09/2022 Group beta Strep positive 08/05/2022 Overview: Clindamycin Susceptible Penicillin G Susceptible Vancomycin Susceptible Encounter for ultrasound to assess growth 07/21/2022 09/09/2022 Overview: Referred to [facility] for "borderline large for gestational age [...] as of this encounter (statuses as of 06/22/2023) Immunizations Name Administration Dates Next Due DTaP Dipth/Tet/Acell Pertussis (Infanrix), Peds 06/20/2005 H1N1 2009 Influenza, IM 01/06/2009 HPV Vaccine, 4-Valent 12/02/2013 IPV - Polio Virus Vaccine (Inact) 06/20/2005 MMR - Measles/Mumps/Rubella Vaccine 06/20/2005 Meningococcal Conjugate Vacc ine (Menactra/Menveo) 02/01/2017,10/24/2011 PPD 01/21/2021,06/11/2018 Pneumococcal Conjugate Vacci ne, 20-valent ([id number]) 09/21/2021 Seasonal Influenza, PF, 6 M & [...] money to get more. Never true 04/19/2023 [place] Depression Scale Answer Date Recorded [place] Depression Scale Total 0 05/18/2023 The thought [...] as of this encounter Progress Notes * Victorina Waggoner CRNP - 06/22/2023 4:12 PM EDT URI Family Medicine Visit Patient location: HOME. I was in a hospital or clinic location. After connecting through [employer], patient was verified with two unique identifiers. Patient (or authorized legal retail service representative) wasthen informed that this was a Telemedicine visit and being conducted confidentially over secure lines. Methods to assure confidentiality were taken. Patient acknowledged consent and understanding of privacy and security of the Telemedicine visit. The patient agreed to participate. CC: 2 weeks of uri symptoms History of Present Illness: Janey Loyola is a 22 year old female presenting for complaints of " sinus infection" She is still taking allergy. 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 Tobacco Use Smoking status: Never Smokeless tobacco: Never Tobacco comments: no passive smoke currently Vaping Use Vaping Use: Never used Substance and Sexual Activity Alcohol use: Not Currently Comment: denies in 2023 Drug use: Never Sexual activity: Yes Partners: Male Other Topics Concern Not on file Social History Narrative Home with mother No daycare or preschool [employer] INFORMATION ENIVIRONMENTAL HISTORY: House: [place] Type of Heating System: Electric and kerosene i LR Air Conditioning: Yes Room, DR and MBR In the home: vaporizer in bedroom Basement: None Home have cockroaches: no Irritants in the home: Scented Candles Patient's bedroom: FLOOR: first TYPE OF RAMY: Carpeting Beds: AMOUNT : 1 TYPE OF BEDS: Mattress Pillows: AMOUNT: 1 TYPE OF PILLOWS: Synthetic (hypoallergenic, polyester) Bedroom contains: Stuffed animals and Toys, books Pets: none Lives on a farm: no Preschool, not missing excessive days Entered By: Bharath Orozco M.D. 06/03/05 Social Determinants of Health Financial Resource Strain: Not on file Food Insecurity: No Food Insecurity (04/19/2023) Hunger Vital Sign Worried About Running Out of Food in the Last Year: Never true Ran Out of Food in the Last Year: Never true Transportation Needs: Not on file Physical Activity: Not on file Stress: Not on file Social Connections: Not on file Intimate Partner Violence: Not on file Housing Stability: Not on file PMH: Past Medical History: Diagnosis Date Acquired stenosis of nasolacrimal duct Asthma well controlled x several years without inhaler use Cellulitis of trunk 08/14/2006 Congenital anomaly of larynx, trachea, and bronchus eczema Eczema Past Surgical History: Procedure Laterality Date DELIVERY ONLY W/ 09/03/2022 DELIVERY AND CARE performed by Gladis Logan MD at OR [facility] REMOVAL OF PHARYNX LESION Left 03/28/2019 EXCISION OR DESTRUCTION LESION PHARYNX performed by Ike Kan DO at OR [facility] REMOVE PILONIDAL CYST, COMPLEX N/A 06/03/2016 EXCISION OF PILONIDAL CYST SINUS COMPLICATED performed by Kavita Balnca MD at OR [facility] REMOVE TONSILS & ADENOIDS, UNDER 12 age 4 T & A, age<12 No outpatient medications have been marked as taking for the 06/22/23 encounter (Telemedicine) with Victorina Waggoner CRNP. Review of patient's allergies indicates: Allergen Reactions Penicillins Other (Please comment) Rash Does not remember severity of reaction d/t being very young Most Recent Immunizations Administered Date(s) Administered COVID-19 mRNA, LNP-s, No Preserve, 2-Dose Series (Sparkbuy) 02/11/2021 DTaP - Dipth/Tet/Acell Pertussis (Infanrix), Peds 06/20/2005 H1N1 2009 Influenza, IM 01/06/2009 HIB PRP-T, 4 dose (ActHib) 06/04/2001 HPV Vaccine, 4-Valent 12/02/2013 Hepatitis B, 0-19 yrs 08/10/2000 IPV - Polio Virus Vaccine (Inact) 06/20/2005 MMR - Measles/Mumps/Rubella Vaccine 06/20/2005 Meningococcal Conjugate Vaccine (Menactra/Menveo) 02/01/2017 PPD 01/21/2021 Pneumococcal Conjugate Vaccine, 20-valent ([id number]) 09/21/2021 Pneumococcal Conjugate Vaccine, 7 Valent 06/01/2000 Seasonal Influenza, PF, 6 M & above, IM , (FluLaval or Fluzone) 11/16/2018 Seasonal Influenza, Quadrivalent, No Preserve, IM 10/29/2015 Seasonal Influenza, Split, IIV3, With Preserve, Inj 10/29/2013 TDAP (age 10 and older)(Boostrix) 06/06/2022 Varicella Vaccine (Chicken Pox) 10/24/2011 Physical Exam: LMP 03/09/2023 Physical Exam HENT: Head: Normocephalic. Pulmonary: Effort: Pulmonary effort is normal. Neurological: General: No focal deficit present. Mental Status: She is alert and oriented to person, place, and time. Psychiatric: Mood and Affect: Mood normal. Behavior: Behavior normal. Thought Content: Thought content normal. Judgment: Judgment normal. Assessment and Plan: 1. Acute maxillary sinusitis, recurrence not specified ? VIRAL VS BACTERIAL ADD KEFLEX X 7 DAYS NASAL SALINE ADD FLONASE CONTINUE ZYRTEC 2. at 13 weeks Not feeling baby move yet Denies discharge, bleeding or cramping Recommend supportive care including: -Humidifier -Rest -Push fluids -Reviewed pathophysiology of viral URI -Recommend handwashing and covering cough -Reviewed signs and symptoms in which to seek medical care I have advised the patient to call our office incase of any worsening or new symptoms. I spent a total of 20-29 minutes (exact time 20 mins) on the date of service in preparation, delivery, and documentation of the care provided to Janey Loyola excluding any time spent in the performance of separately billed services. Isatu, STEPH, LENORE [facility] documented in this encounter Plan of Treatment Upcoming Encounters Date Type Department Care Team (Late st Contact Info) Description 07/10/2023 7:45 AM EDT Office Visit Gynecology/Obstetrics Stephen Rubio [address] [place] [address] Keesha Macdonald PA-C [address] [place] [address] 08/11/2023 10:30 AM EDT Office Visit Brake Liner Obstetrics Maternal Medicine, [place] [address] [place] [address] Javi Puga, [address] [place] [address] 08/11/2023 10:30 AM EDT Imaging Radiology [facility] [place] [address] [place] [address] Health Maintenance Due Date Last Done Comments [...] as of this encounter Visit Diagnoses Diagnosis Acute maxillary sinusitis, recurrence not specified- Primary 13 weeks gestation of state, incidental documented in this encounter Advance Directives Latest [...] the patient have Health Care Power of It Compliance Analyst? No Code Status History Code Status Date Activated Date Inactivated Comments Full Code 09/02/2022 5:18 PM 09/03/2022 5:55 PM This order reflects the patients wishes and were consensually agreed upon. Question Answer Comments Discussion of Advance Directives occurred with: Patient Healthcare Agents on File Name Relationship Healthcare Agent Relationshi p Communication Imo Milla Spouse Health Care Repr esentative (appointed verbally by patient or by statute hierarchy) Care Teams Home Care Administrator Relationship Specialty Start Date End Date Victorina Waggoner CRNP [address] [place] [address] PCP - General Nurse Practitioner 03/05/21 documented as of this encounter
--- OUTSIDE RECORDS SUMMARY | 2023-12-02 22:08 | External Medical Summary | Summary of Care ---
Author Name Unknown Organization [facility] Address [address] [facility] [place] [address] Phone [phone] Care Team Providers Care Reproductive Surgeon Name Role Phone Victorina Waggoner Primary Care Provider Reason for Visit * Reason Comments Return Visit Encounter Details Date Type Department Care Team (Late st Contact Info) Description 08/16/2023 11:15 AM EDT Office Visit Gynecology/Obstetric s Stephen Rubio [address] [place] [address] Keesha Macdonald PA-C [address] [place] [address] Supervision of high-risk , unspecified trimester*; Obesity, [...] as of this encounter (statuses as of 08/16/2023) Medications Medication Sig Dispensed Refills Start Date [...] as of this encounter (statuses as of 08/16/2023) Active Problems Problem Noted Date Diagnosed Date [...] as of this encounter (statuses as of 08/16/2023) Resolved Problems Problem Noted Date Diagnosed Date [...] as of this encounter (statuses as of 08/16/2023) Immunizations Name Administration Dates Next Due DTaP Dipth/Tet/Acell Pertussis (Infanrix), Peds 06/20/2005 H1N1 2009 Influenza, IM 01/06/2009 HPV Vaccine, 4-Valent 12/02/2013 IPV - Polio Virus Vaccine (Inact) 06/20/2005 MMR - Measles/Mumps/Rubella Vaccine 06/20/2005 Meningococcal Conjugate Vacc ine (Menactra/Menveo) 02/01/2017,10/24/2011 PPD 01/21/2021,06/11/2018 Pneumococcal Conjugate Vacci ne, 20-valent ([id number]) 09/21/2021 Seasonal Influenza, PF, 6 M & [...] money to get more. Never true 08/16/2023 [place] Depression Scale Answer Date Recorded [place] Depression Scale Total 0 05/18/2023 The thought [...] No 08/16/2023 Does the household have a [facility] source of income? (Household - for ages [...] Reading Time Taken Comments Blood Pressure 104/64 08/16/2023 11:19 AM EDT Pulse - - Temperature - - Respiratory Rate - - Oxygen Saturation - - Inhaled Oxygen Concentration - - Weight 127 kg (280 lb) 08/16/2023 11:19 AM EDT Height - - Body Mass Index 37.97 07/19/2023 4:04 PM EDT documented in this encounter Progress Notes * Keesha Macdonald PA-C - 08/16/2023 11:29 AM EDT 21w3d Anatomy with MFM, returning in about 3 weeks for repeat ultrasound/missed anatomy. Counseled on MSAFP for screening for ONTD, patient politely declines. Denies VB, LOF, contractions. Pos quickening. At this time leaning towards repeat C/S, will reassess with future appointments. RTC in 4 weeks Keesha Macdonald PA-C * Kimberli Angulo MED ASSIST - 08/16/2023 11:19 AM EDT 21w3d Denies vaginal bleeding/rom + movements documented in this encounter Plan of Treatment Upcoming Encounters Date Type Department Care Team (Late st Contact Info) Description 09/08/2023 7:45 AM EDT Office Visit Gynecology/Obstetrics Stephen Rubio [address] [place] [address] Keesha Macdonald PA-C [address] [place] [address] 09/08/2023 10:30 AM EDT Office Visit Transformation Consultant Obstetrics Maternal Medicine, [place] [address] [place] [address] Javi Puga [address] [place] [address] 09/08/2023 10:30 AM EDT [facility] [address] [place] [address] 10/05/2023 8:00 AM EDT Imaging Maternal Medicine Imaging, Galina Rubio [address] [place] [address] 2023 11:00 AM EDT Imaging Maternal Medicine Imaging, Galina Rubio [address] [place] [address] 11/30/2023 8:00 AM EDT Imaging Maternal Medicine Imaging, Galina Rubio [address] [place] [phone] Health Maintenance Due Date Last Done [...] of other high-risk documented in this encounter Additional Health Concerns [...] the patient have Health Care Power of Fruit Picker? No * Full Code Date Activated Date [...] patient or by statute hierarchy) Care Teams Reproductive Surgeon Relationship Specialty Start Date End Date Victorina Waggoner CRNP [address] [place] [address] PCP - General Nurse Practitioner 03/05/21 documented as of this encounter
--- OUTSIDE RECORDS SUMMARY | 2023-12-02 22:08 | External Medical Summary | Summary of Care ---
Author Name Unknown Organization [facility] Address [address] [facility] [place] [address] Phone [phone] Care Team Providers Care Activities Specialist Name Role Phone Victorina Waggoner Primary Care Provider Reason for Visit * Reason Onset Date Comments Med Request 07/12/2023 Encounter Details Date Type Department Care Team (Late st Contact Info) Description 07/12/[address] [facility] [address] [place] [address] Victorina Waggoner CRNP [address] [place] [address] Med Request Allergies Active Allergy Reactions Criticality Noted Date Comments Penicillins Other (Please comment) 02/02/2000 Rash Does not remember severity of reaction d/t being very young documented as of this encounter (statuses as of 07/12/2023) Medications Medication Sig Dispensed Refills Start Date [...] as needed 45 g 3 07/12/2023 Active documented as of this encounter (statuses as of 07/12/2023) Active Problems Problem Noted Date Diagnosed Date [...] as of this encounter (statuses as of 07/12/2023) Resolved Problems Problem Noted Date Diagnosed Date Resolved Date intolerance to labor, delivered, current hospitalization 09/05/2022 09/09/2022 Status post delivery 09/04/2022 10/13/2022 Encounter for induction of labor 09/02/2022 09/09/2022 Group beta Strep positive 08/05/2022 Overview: Clindamycin Susceptible Penicillin G Susceptible Vancomycin Susceptible Encounter for ultrasound to assess growth 07/21/2022 09/09/2022 Overview: Referred to [facility] for "borderline large for gestational age [...] as of this encounter (statuses as of 07/12/2023) Immunizations Name Administration Dates Next Due DTaP Dipth/Tet/Acell Pertussis (Infanrix), Peds 06/20/2005 H1N1 2009 Influenza, IM 01/06/2009 HPV Vaccine, 4-Valent 12/02/2013 IPV - Polio Virus Vaccine (Inact) 06/20/2005 MMR - Measles/Mumps/Rubella Vaccine 06/20/2005 Meningococcal Conjugate Vacc ine (Menactra/Menveo) 02/01/2017,10/24/2011 PPD 01/21/2021,06/11/2018 Pneumococcal Conjugate Vacci ne, 20-valent ([id number]) 09/21/2021 Seasonal Influenza, PF, 6 M & [...] money to get more. Never true 04/19/2023 [place] Depression Scale Answer Date Recorded [place] Depression Scale Total 0 05/18/2023 The thought [...] encounter Miscellaneous Notes * Telephone Encounter - Bisi Maki MED ASSIST - 07/12/2023 12:31 PM EDT Medication pended, if agreeable. Uses as needed. * Telephone Encounter - Brenda Blanco CPhT - 07/12/2023 12:18 PM EDT Patient requesting refills for Betamethasone Dipropionate 0.05 % External Cream (Diprosone) . Upon chart review, medication is listed as discontinued, with discontinuation reason as "med list clean up ". Please advise if you wish to continue this therapy, patient needs ordered today Thank you, Brenda Blanco Switchboard Troubleshooter II [facility] ([facility]) (formerly Telepharmacy) 07/12/2023 12:20 PM documented in this encounter Plan of Treatment Upcoming Encounters Date Type Department Care Team (Late st Contact Info) Description 08/11/2023 10:30 AM EDT Office Visit Broadcast Operations Engineer Obstetrics Maternal Medicine, [place] [address] [place] [address] Javi Puga DO [address] [place] [address] 08/11/2023 10:30 AM EDT Imaging Radiology [facility] [address] [place] [address] 08/11/2023 1:45 PM EDT Office Visit Gynecology/Obstetrics Stephen Rubio [address] [place] [address] Keesha Macdonald PA-C [address] [place] [address] Health Maintenance Due Date Last Done Comments [...] as of this encounter Visit Diagnoses Diagnosis Other atopic dermatitis documented in this encounter Advance Directives * [...] the patient have Health Care Power of Network Communications Engineer? No * Full Code Date Activated Date Inactivated Comments 09/02/2022 5:18 PM 09/03/2022 5:55 PM This order r eflects the patients wishes and were consensually agreed upon. Question Answer Comments Discussion of Advance Directives occurred with: Patient Healthcare Agents on File Name Relationship Healthcare Agent Relationshi p Communication Mio [place] Spouse Health Care Repr esentative (appointed verbally by patient or by statute hierarchy) Care Teams Activities Specialist Relationship Specialty Start Date End Date Rhed, Victorina Melissa, AUTOMOTIVE PORTER [address] [place] [address] PCP - General Nurse Practitioner 03/05/21 documented as of this encounter
--- OUTSIDE RECORDS SUMMARY | 2023-12-02 22:08 | External Medical Summary ---
Author Name Unknown Address Unknown Organization [id number]:[facility] - [facility] [address] [facility] [address] Laboratory Report Ordering Provider Test Date Status MARK KELSEY 07/19/2023 16:34:05 Final Observation Date Value Abnormality Reference (Units) Status Streptococcus pyogenes DNA [Presence] in Throat by LINDA with probe detection 07/19/2023 16:34:05 Positive. Group A Streptococcus detected by PCR (amplified probe). Abnormal Negative Final This test was developed and its performance characteristics determined by [facility]. It has not been cleared or approved by the FDA. The laboratory is regulated under CLIA as qualified to perform high- complexity testing. This test is used for clinical purposes. It should not be regarded as investigational or for research. Performing Location LABORATORY [facility] [address] [facility] [address]
--- NOTE | 2023-12-02 22:33 | History & Physical Report ---
Date of Service December 02, 2023 Assessment & Plan (1) Back pain affecting in third trimester: Plan: 23-year-old -0-0-1 at 36 weeks and 6 days of gestation presenting today with right-sided back pain radiating to right upper quadrant, history of prior , mild irregular contractions noted on the monitor, heart rate reassuring, cervix closed, Plan to monitor, labs, IV fluid hydration, pain management, reevaluate (2) Abdominal pain of right upper quadrant during , antepartum: (3) History of primary section: History of Present Illness Primary Care Provider: Hansel Avalos MD patient is a 23-year-old -0-0-1 at 36 weeks and 6 days of gestation who has been feeling back pain radiating to her right upper quadrant since this morning. It got more frequent and severe later this evening. She rates pain 7 out of 10 now it is constant. She is not sure whether she is having contractions but she feels irregular abdominal tightening. she denies leakage of fluid or vaginal bleeding. She reports good movements. she denies fever or chills, problem with urination, vomiting but she has been feeling nauseous. She ate dinner at 6 PM and kept it down. She has been drinking a lot of water and Gatorade today and took 325 mg of Tylenol with no help. Her has been complicated by, 1. History of prior 40 months ago due to macrosomia, delivered 10 pound 1 ounce baby, 2. Class III obesity, 3. GBS positive Allergies Allergy/AdvReac Type Severity Reaction Status Date / Time Penicillins Allergy Unknown HAPPENED Verified 12/02/23 22:10 AN Home Medications Medication Instructions Recorded Confirmed Type levocetirizine 5 mg tablet (Xyzal) 5 mg PO DAILY 07/13/22 12/02/23 History vits no.124-ferrous fum 1 tab PO DAILY 07/13/22 12/02/23 History 27 mg iron-folic acid 800 mcg tablet ( Vitamin) ferrous sulfate 325 mg (65 mg 325 mg PO DAILY 12/02/23 12/02/23 History iron) tablet (Iron (ferrous sulfate)) Patient History Medical History Asthma Surgical History Hx of tonsillectomy H/O removal of cyst No pertinent past surgical history Social History Smoking Status: Never smoker Hx Alcohol Use: No Hx Substance Use: No Preferred Language: Citizen Of [place] marital status: Feels Safe at Home: Yes OB History 41 weeks, primary due to macrosomia, 14 months ago, at [facility] Review of Systems as per Subjective / HPI Physical Exam Constitutional: WD/WN, vitals as above well developed, well nourished and + acute distress Gastrointestinal (Abdomen): normal bowel sounds, soft, nontender, no hepatosplenomegaly ( right upper quadrant tenderness) Genitourinary: normal external appearance Manual OB Exam: + cervical dilation (0), + cervical effacement 10% and + station high OB Exam Monitor Tracing: + external uterine monitor used and + category I her back is symmetric, pointing right flank area to be painful, Straight leg raise test negative bilaterally Results & Data Vital Signs (Past 12 Hours) Vital Signs Pulse BP 12/02/23 22:15 113 H 110/66
[2023-12-02] MEDS: oxyCODONE/ACETAMINOPHEN 5mg/325mg TAB PO STA (22:47)
[2023-12-02] MEDS: LACTATED RINGER'S 1,000 ML IV ONE (22:47)
[2023-12-02 22:53] LABS: Basophils # (auto) 0.04 K/uL (0.00-0.20); Basophils % (auto) 0.3 %; Eosinophils # (auto) 0.06 K/uL (0.00-0.50); Eosinophils % (auto) 0.4 %; Hemoglobin 11.8 g/dl (12.0-16.0); Immature Granulocytes # (auto) 0.11 K/uL (0.01-0.20); Immature Granulocytes % (auto) 0.7 %; Lymphocytes % (auto) 8.2 %; Mean Corpuscular Hemoglobin 29.4 pg (25.0-34.0); Mean Corpuscular Hgb Conc 32.8 g/dL (32.0-36.0); Mean Corpuscular Volume 89.8 fL (80.0-100.0); Mean Platelet Volume 10.9 fL (9.4-12.4); Monocytes # (auto) 0.56 K/uL (0.11-0.59); Monocytes % (auto) 3.8 %; Neutrophils # (auto) 12.72 K/uL (1.40-6.50); Neutrophils % (auto) 86.6 %; Platelet Count 178 K/uL (130-400); RDW Coefficient of Variation 14.6 % (11.5-14.5); RDW Standard Deviation 48.5 fL (36.4-46.3); Red Blood Count 4.01 M/uL (4.20-5.40); White Blood Count 14.69 K/ul (4.8-10.8)
[2023-12-02 23:10] LABS: Albumin Level 3.2 gm/dl (3.4-5.0); BUN Creatinine Ratio 8.9 (10-20); Bilirubin,Total 0.4 mg/dl (0.2-1.0); Calcium 8.3 mg/dl (8.6-10.3); Creatinine Clr Calc Pharmacy 242.6 ml/min; Globulin 3.1 gm/dl (2.5-4.0); Potassium 3.8 mmol/L (3.5-5.1); Total Protein 6.3 gm/dl (6.0-8.3)
[2023-12-02 23:15] LABS: Appearance Urine Cloudy (Clear); Bacteria Urine Automated 2+ (None Seen); Bilirubin Urine Negative (Negative); Blood Urine Negative (Negative); Cast Urine Automated 0-2 /lpf (0-2); Color Urine Yellow; Epithelial Cell Urine Auto >20 /hpf (0-2); Glucose Urine UA Negative (Negative); Ketones Urine Negative (Negative); Leukocyte Esterase Urine 2+ (Negative); Nitrite Urine Negative (Negative); Protein Urine Negative (Negative); RBC Urine Automated 0-2 /hpf (0-2); Urobilinogen Urine Negative (Negative); pH Urine 7.5 (4.5-7.5)
[2023-12-02] MEDS ORDERED: cephALEXin 500 MG CAP PO SCH (23:35)
[2023-12-03] MEDS: ACETAMINOPHEN 325 MG TAB PO PRN
[2023-12-03] MEDS ORDERED: oxyCODONE/ACETAMINOPHEN 5mg/325mg TAB PO PRN (00:15)
[2023-12-03] MEDS: TERBUTALINE SULFATE 1 MG/ML VIAL SQ PRN (00:28)
[2023-12-03] MEDS: cefTRIAXone SODIUM 2,000 MG/50 ML BAG IV SCH (00:28)
[2023-12-03] MEDS: LACTATED RINGER'S 1,000 ML IV SCH (00:29)
--- NOTE | 2023-12-03 00:44 | Obstetrical Progress Note ---
Date of Service December 03, 2023 Subjective Patient is reevaluated. She still has the pain on the right back. Denies contractions, leakage of fluid, vaginal bleeding. She reports good movements. heart rate has been reactive, toco started to show contractions every 4 to 5 minutes, spaced out after the dose of s SQ terbutaline Lab Results 12/02/23 12/02/23 Range/Units 22:35 22:39 WBC 14.69 H (4.8-10.8) K/ul RBC 4.01 L (4.20-5.40) M/uL Hgb 11.8 L (12.0-16.0) g/dl Hct 36.0 L (37.0-47.0) % MCV 89.8 (80.0-100.0) fL MCH 29.4 (25.0-34.0) pg MCHC 32.8 (32.0-36.0) g/dL RDW Std Deviation 48.5 H (36.4-46.3) fL RDW Coeff of Evelio 14.6 H (11.5-14.5) % Plt Count 178 (130-400) K/uL MPV 10.9 (9.4-12.4) fL Immature Gran % (Auto) 0.7 % Neut % (Auto) 86.6 % Lymph % (Auto) 8.2 % [place] % (Auto) 3.8 % Eos % (Auto) 0.4 % Baso % (Auto) 0.3 % Neut # (Auto) 12.72 H (1.40-6.50) K/uL Lymph # (Auto) 1.20 (1.20-3.40) K/uL [place] # (Auto) 0.56 (0.11-0.59) K/uL Eos # (Auto) 0.06 (0.00-0.50) K/uL Baso # (Auto) 0.04 (0.00-0.20) K/uL Immature Gran # (Auto) 0.11 (0.01-0.20) K/uL Sodium 135 L (136-145) mmol/L Potassium 3.8 (3.5-5.1) mmol/L Chloride 107 (98-107) mmol/L Carbon Dioxide 22 (21-32) mmol/L Anion Gap 6 (3-11) BUN 5 L (6-23) mg/dl Creatinine 0.56 L (0.6-1.2) mg/dl Est Cr Clr Drug Dosing 242.6 ml/min eGFR 130.62 BUN/Creatinine Ratio 8.9 L (10-20) Glucose 90 (70-99(Fasting)) mg/dl Calcium 8.3 L (8.6-10.3) mg/dl Total Bilirubin 0.4 (0.2-1.0) mg/dl AST 14 (13-39) U/L ALT 11 (7-52) U/L Alkaline Phosphatase 69 (34-104) U/L Total Protein 6.3 (6.0-8.3) gm/dl Albumin 3.2 L (3.4-5.0) gm/dl Globulin 3.1 (2.5-4.0) gm/dl Albumin/Globulin Ratio 1.0 (0.9-2) Urine Color Yellow Urine Appearance Cloudy A (Clear) Urine pH 7.5 (4.5-7.5) Ur Specific [place] 1.010 (1.000-1.030) Urine Protein Negative (Negative) Urine Glucose (UA) Negative (Negative) Urine Ketones Negative (Negative) Urine Blood Negative (Negative) Urine Nitrite Negative (Negative) Urine Bilirubin Negative (Negative) Urine Urobilinogen Negative (Negative) Ur Leukocyte Esterase 2+ H (Negative) Urine WBC (Auto) 6-10 H (0-5) /hpf Urine RBC (Auto) 0-2 (0-2) /hpf U Hyaline Cast (Auto) 0-2 (0-2) /lpf U Epithel Cells (Auto) >20 H (0-2) /hpf Urine Bacteria (Auto) 2+ H (None Seen) UA suggesting UTI versus pyonephritis given elevated white count at 14,6 K versus 10 K a month ago in the office. Plan today observe her tonight, start IV Rocephin, pain management, IV fluids, renal ultrasound in the morning and reevaluate. Patient understands and agrees with plan. All questions were answered. Results & Data Vital Signs (Past 12 Hours) Vital Signs Temp Pulse Resp BP Pulse Ox 12/03/23 00:36 111 H 97 12/03/23 00:31 111 H 97 12/03/23 00:26 108 H 96 12/03/23 00:21 100 H 95 1027/24 00:16 102 H 95 12/03/23 00:11 105 H 96 12/03/23 00:06 105 H 97 12/02/23 23:45 109 H 117/63 12/02/23 22:15 113 H 110/66 12/02/23 22:13 36.8 C 20
[2023-12-03 01:33] VITALS: O2SAT 95
[2023-12-03 07:35] VITALS: BP 100/60
[2023-12-03 07:45] VITALS: TEMP 97.9
[2023-12-03 07:49] VITALS: RESP 18
--- NOTE | 2023-12-03 09:48 | Ultrasound Report ---
ULTRASOUND KIDNEYS AND BLADDER CLINICAL HISTORY: Flank pain. Reportedly 37 weeks . COMPARISON STUDY: Abdominal radiograph dated 02/10/2010. TECHNIQUE: Real-time, grayscale, and color flow sonography of the kidneys and bladder is performed. I mages are reviewed in the transverse and longitudinal planes. FINDINGS: Kidneys: The kidneys are normal in size and echotexture. The right kidney measures 13.1 cm in length and the left kidney measures 12.9 cm in length. There is mild right-sided hydronephrosis. No hydronep hrosis as seen on the left. No shadowing renal calculi are identified. There is no sonographic eviden ce of contour deforming renal mass lesion. No perinephric fluid is identified. Bladder: The bladder is decompressed and not well evaluated. IMPRESSION: 1. There is mild right-sided hydronephrosis. This is nonspecific and may be related to mass effect fr om the gravid uterus. An obstructing calculus would be impossible to exclude and this should be corre lated with clinical findings and urinalysis. 2. No hydronephrosis is seen on the left. 3. The bladder is decompressed and not well evaluated. ACT 112: Negative or not required by law. Electronically signed by: Kyler Mccray M.D. 12/03/2023 9:46 AM
[2023-12-03 09:59] VITALS: PULSE 93
--- NOTE | 2023-12-03 10:37 | Obstetrical Progress Note ---
Date of Service December 03, 2023 Assessment & Plan Admission and Anticipated Discharge Date Admission Date: December 03, 2023 Subjective Patient is reevaluated Back from US, reviewed results with her No ctxs/ LOF/VB Urine culture pending Plan to d/c home with PO Keflex, pending urine culture f/u in office tomorrow Results & Data Vital Signs (Past 12 Hours) Vital Signs Temp Pulse Resp BP Pulse Ox 12/03/23 09:50 93 H 12/03/23 07:45 18 12/03/23 07:45 18 12/03/23 07:41 36.6 C 20 12/03/23 07:34 99 H 100/60 12/03/23 03:21 36.8 C 106 H 18 104/55 L 12/03/23 01:31 95 12/03/23 01:31 107 H 12/03/23 01:31 103 H 94 12/03/23 01:26 112 H 95 12/03/23 01:25 106 H 94 12/03/23 01:21 116 H 96 12/03/23 01:17 109 H 94 12/03/23 01:16 106 H 95 12/03/23 01:11 112 H 96 12/03/23 01:06 110 H 96 12/03/23 01:01 110 H 96 12/03/23 00:56 113 H 95 12/03/23 00:51 114 H 95 12/03/23 00:46 113 H 97 12/03/23 00:41 105 H 96 12/03/23 00:36 111 H 97 12/03/23 00:31 111 H 97 12/03/23 00:26 108 H 96 12/03/23 00:21 100 H 95 12/03/23 00:16 102 H 95 12/03/23 00:11 105 H 96 12/03/23 00:06 105 H 97 12/02/23 23:45 109 H 117/63
--- OUTSIDE RECORDS SUMMARY | 2023-12-03 10:39 | External Medical Summary ---
Author Name Unknown Address Unknown Organization [id number]:[facility] [place] [address] [place] [id number] Laboratory Report Ordering Provider Test Date Status CARTER CASTELLANOS 11/30/2023 09:33:31 Preliminary Observation Date Value Abnormality Reference (Units) Status Bacteria identified in Specimen by Culture 11/30/2023 09:33:31 [id number]^BETA STREPTOCOCCUS GROUP B Abnormal Preliminary Beta Streptococcus group B<b r/>Test: Group B Strep Susceptibility
Specimen Source: Vaginal Rectal
Specimen Type: Swab
Specimen Date: 11/30/2023932
Result Date: 12/03/2023948
Result Status: Preliminary result
Abnormal: Yes
Resulting Lab: [facility] [place]
[address]
[place] [id number]

CULTURE

Beta Streptococcus group B (Abnormal)

null Performing Location [facility] [place] [address] [facility] [place] [id number]
--- NOTE | 2023-12-05 18:46 | Discharge Summary ---
Date of Service December 05, 2023 Admission HPI Per Admitting Provider patient is a 23-year-old -0-0-1 at 36 weeks and 6 days of gestation who has been feeling back pain radiating to her right upper quadrant since this morning. It got more frequent and severe later this evening. She rates pain 7 out of 10 now it is constant. She is not sure whether she is having contractions but she feels irregular abdominal tightening. she denies leakage of fluid or vaginal bleeding. She reports good movements. she denies fever or chills, problem with urination, vomiting but she has been feeling nauseous. She ate dinner at 6 PM and kept it down. She has been drinking a lot of water and Gatorade today and took 325 mg of Tylenol with no help. Her has been complicated by, 1. History of prior 40 months ago due to macrosomia, delivered 10 pound 1 ounce baby, 2. Class III obesity, 3. GBS positive Hospital Course (1) History of primary section: (2) Abdominal pain of right upper quadrant during , antepartum: (3) Back pain affecting in third trimester: 23-year-old -0-0-1 at 36 weeks and 6 days of gestation presented on December 01 with right-sided back pain radiating to right upper quadrant, history of prior , mild irregular contractions noted on the monitor, Elevated white count at 14.6 K, UA suggesting UTI, heart rate reassuring, cervix closed, no signs or symptoms of labor. After evaluation and workup as above decision was made to observe overnight get, start antibiotics, IV fluids, renal ultrasound in the morning and reevaluate. she had ultrasound in the morning which was unremarkable for third trimester . She stayed afebrile and her symptoms improved and she was discharged on December 02 with p.o. antibiotics pending urine culture. She is to be followed in the office next day which was yesterday, as she was scheduled before. And her urine culture results came back negative today and my office called told to stop the antibiotics. (4) Decreased movement affecting management of mother, antepartum:
== END 2023-12-03 10:52 | disposition home or self-care (01) ==
LOC: OPB 21:59 → 4S1 21:59

== ENCOUNTER 2023-12-05 18:21 | Observation (INO) ==
--- NOTE | 2023-12-05 19:09 | History & Physical Report ---
Date of Service December 05, 2023 Assessment & Plan (1) History of primary section: (2) Decreased movement affecting management of mother, antepartum: (3) Fever and chills: Plan: patient is a 23-year-old -0-0-1 at 37 weeks and 2 days of gestation presenting today with feelings of fever chills, headache, decreased movements, no leakage of fluid, temperature of 100.6 F at home VSS Afebrile here heart rate category 2, tachycardia with decreased variability, no decelerations, Patient appears to be dehydrated, plan to monitor, repeat temperature, start IV fluid bolus, lab work and reevaluate, All questions were answered (4) Headache in : (5) No leakage of amniotic fluid into vagina: (6) Antepartum tachycardia affecting care of mother: History of Present Illness Chief Complaint: fever at home, questionable leakage of fluid Primary Care Provider: Hansel Avalos MD patient is a 23-year-old -0-0-1 at 37 weeks and 2 days of gestation who is presenting this evening with fever, 100.6 Fahrenheit at home, questionable leakage of fluid, headache this afternoon which is now subsiding. She woke up this morning at 6:30 AM she felt a small gush of fluid leakage, not sure about how much it leaked through her leg but did not drip on the floor. She had underwear all day and it has been damp, not sloppy wet, No other questions no trickling. She went to work around 8 AM and then had headache around noon when she took 500 mg of Tylenol. Headache was 7 out of 10 in intensity and now it slowed down to 3 out of 10. She denies change in her vision, nausea vomiting, epigastric or right upper quadrant pain. She then felt feverish and chilly in the afternoon at work and came home and took her temperature and it was 100.6 for her night. She called me with above symptoms and I recommended to come in. She denies nausea vomiting, she ate lunch and dinner and kept those down and has been drinking enough. She denies contractions, vaginal bleeding. She reports movements but the baby is not as active as yesterday. She was here over the weekend was admitted by myself on December 01 with right flank pain, radiating to right upper quadrant and decreased movements. However white count was 14.6 K and UA suggested UTI. Will place her on antibiotics and observe overnight and repeat ultrasound showed normal kidneys. She stayed afebrile during 1 admission, heart rate over within normal limits with reactive NST's. She was discharged on December 02Monday. She was in the office yesterday and everything was good no issues. The symptoms started today. She has prior and she is scheduled for repeat in 2 weeks when she is 39 weeks. Allergies Allergy/AdvReac Type Severity Reaction Status Date / Time Penicillins Allergy Unknown HAPPENED Verified 12/02/23 22:10 AN INFANT Home Medications Medication Instructions Recorded Confirmed Type levocetirizine 5 mg tablet (Xyzal) 5 mg PO DAILY 07/13/22 12/02/23 History vits no.124-ferrous fum 1 tab PO DAILY 07/13/22 12/02/23 History 27 mg iron-folic acid 800 mcg tablet ( Vitamin) ferrous sulfate 325 mg (65 mg 325 mg PO DAILY 12/02/23 12/02/23 History iron) tablet (Iron (ferrous sulfate)) cephalexin 500 mg capsule 500 mg PO Q8H 7 days #21 caps 12/03/23 Rx Patient History Medical History Asthma Surgical History Hx of tonsillectomy H/O removal of cyst No pertinent past surgical history Social History Smoking Status: Never smoker Second Hand Exposure: No; Hx Alcohol Use: No Hx Substance Use: No 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 Beliefs That Will Affect Care: None marital status: Current Living Situation: Spouse, Parent and Family Feels Safe at Home: Yes Assistive Devices: None Review of Systems as per Subjective / HPI, + fever and + chills Physical Exam Constitutional: WD/WN, vitals as above well developed, well nourished, + obese and comfortable Gastrointestinal (Abdomen): normal bowel sounds, soft, nontender, no hepatosplenomegaly Musculoskeletal: no cyanosis or clubbing, extremities motor strength 5/5 head raise, chin to chest test negative, reflexes within normal limits, no clonus bilaterally Genitourinary: OB Exam Monitor Tracing: + external uterine monitor used and + category II ( tachycardia at 170s, decreased variability) Amnisure negative [place] negative Results & Data Vital Signs (Past 12 Hours) Vital Signs Temp Pulse Resp BP 12/05/23 18:45 20 12/05/23 18:45 37.2 C 20 12/05/23 18:34 104 H 124/66 (2) Decreased movement affecting management of mother, antepartum Fetus number: single or unspecified fetus Qualified Code(s): O36.8190 - Decreased movements, unspecified trimester, not applicable or unspecified (4) Headache in Trimester: third trimester Qualified Code(s): O26.893 - Other specified related conditions, third trimester; R51.9 - Headache, unspecified
[2023-12-05] MEDS: ACETAMINOPHEN 325 MG TAB PO PRN (19:21)
[2023-12-05] MEDS: LACTATED RINGER'S 1,000 ML IV ONE (19:32)
--- NOTE | 2023-12-05 19:49 | Obstetrical Progress Note ---
Date of Service December 05, 2023 Subjective Repeat temp 37.2 C Bed side US is done by myself: Single IUP, Vertex, AURORA: 14.1 cm Multiple movements and breathing, seen, tone normal, BPP 8/8 FHR started to come down to 160's with moderate variability IVF is just started, had to call IV team Blood work pending Continue to monitor closely Results & Data Vital Signs (Past 12 Hours) Vital Signs Temp Pulse Resp BP 12/05/23 18:45 20 12/05/23 18:45 37.2 C 20 12/05/23 18:34 104 H 124/66
[2023-12-05 19:56] LABS: Creatinine Urine Random 72.5 mg/dl; Protein Creatinine Ratio Urine 0.2 (0-0.2); Total Protein Urine Random 11.3 mg/dl (0-11.9)
[2023-12-05 20:09] LABS: Albumin Level 3.2 gm/dl (3.4-5.0); Bilirubin,Total 0.2 mg/dl (0.2-1.0); Calcium 8.3 mg/dl (8.6-10.3); Potassium 3.7 mmol/L (3.5-5.1)
[2023-12-05 20:15] LABS: Albumin Globulin Ratio 1.1 (0.9-2); BUN Creatinine Ratio 9.7 (10-20); Creatinine Clr Calc Pharmacy 218.7 ml/min; Total Protein 6.2 gm/dl (6.0-8.3)
[2023-12-05 20:44] LABS: Basophils # (auto) 0.02 K/uL (0.00-0.20); Basophils % (auto) 0.2 %; Eosinophils # (auto) 0.03 K/uL (0.00-0.50); Eosinophils % (auto) 0.3 %; Hematocrit (blood only) 35.5 % (37.0-47.0); Immature Granulocytes # (auto) 0.08 K/uL (0.01-0.20); Immature Granulocytes % (auto) 0.7 %; Lymphocytes # (auto) 1.99 K/uL (1.20-3.40); Mean Corpuscular Hemoglobin 29.9 pg (25.0-34.0); Mean Corpuscular Hgb Conc 33.8 g/dL (32.0-36.0); Mean Corpuscular Volume 88.3 fL (80.0-100.0); Mean Platelet Volume 10.9 fL (9.4-12.4); Monocytes % (auto) 5.1 %; Neutrophils # (auto) 8.99 K/uL (1.40-6.50); Neutrophils % (auto) 76.7 %; Platelet Count 206 K/uL (130-400); RDW Coefficient of Variation 14.6 % (11.5-14.5); RDW Standard Deviation 46.7 fL (36.4-46.3); Red Blood Count 4.02 M/uL (4.20-5.40); White Blood Count 11.71 K/ul (4.8-10.8)
[2023-12-05] MEDS: LACTATED RINGER'S 1,000 ML IV SCH (21:15)
--- NOTE | 2023-12-05 21:30 | Obstetrical Progress Note ---
Date of Service December 05, 2023 Subjective Patient is reevaluated She still feel that she has fever Baby has been moving well No NGUYEN Denies cold symptoms, CP. SOB, Cough, runny nose, sore throat, pain with urination ( had urine culture resulted negative yesterday), leg pain FHR had been 160's, with prolonged accels , moderate variability, no decels WBCC came dwon to 11.7 from 14.6 on 12/01 admission LA normal Temp is now 37.6 was 37.2 Plan to continue with IVF hydration, get CXR Continue to monitor overnight Lab Results 12/05/23 12/05/23 12/05/23 Range/Units 19:28 19:33 20:32 WBC Cancelled 11.71 H RBC Cancelled 4.02 L Hgb Cancelled 12.0 Hct Cancelled 35.5 L MCV Cancelled 88.3 MCH Cancelled 29.9 MCHC Cancelled 33.8 RDW Std Deviation Cancelled 46.7 H RDW Coeff of Evelio Cancelled 14.6 H Plt Count Cancelled 206 MPV Cancelled 10.9 Immature Gran % (Auto) Cancelled 0.7 Neut % (Auto) Cancelled 76.7 Lymph % (Auto) Cancelled 17.0 [place] % (Auto) Cancelled 5.1 Eos % (Auto) Cancelled 0.3 Baso % (Auto) Cancelled 0.2 Neut # (Auto) Cancelled 8.99 H Lymph # (Auto) Cancelled 1.99 [place] # (Auto) Cancelled 0.60 H Eos # (Auto) Cancelled 0.03 Baso # (Auto) Cancelled 0.02 Immature Gran # (Auto) Cancelled 0.08 Absolute Nucleated RBC Cancelled Nucleated RBC % (auto) Cancelled Neutrophils % (Manual) Cancelled Band Neutrophils % Cancelled Lymphocytes % (Manual) Cancelled Prolymphocyte % Cancelled Reactive Lymphs % (Man) Cancelled Monocytes % (Manual) Cancelled Eosinophils % (Manual) Cancelled Basophils % (Manual) Cancelled Metamyelocytes % (Man) Cancelled Myelocytes % (Man) Cancelled Promyelocytes % (Man) Cancelled Blast Cells % (Manual) Cancelled Plasma Cell % (Manual) Cancelled Other Cells % Cancelled Nucleated RBC % Cancelled Neutrophils # (Manual) Cancelled Band Neutrophils # Cancelled Total Absolute Neuts Cancelled Lymphocytes # (Manual) Cancelled Prolymphocyte # Cancelled Reactive Lymphs # Cancelled Total Abs Lymphocytes Cancelled Monocytes # (Manual) Cancelled Eosinophils # (Manual) Cancelled Basophils # (Manual) Cancelled Metamyelocytes # (Man) Cancelled Myelocytes # (Manual) Cancelled Promyelocytes # (Man) Cancelled Blast Cells # (Man) Cancelled Plasma Cell # (Manual) Cancelled Other Cells # Cancelled Nucleated RBCs # (Man) Cancelled Hypersegmented Neuts Cancelled Hyposegmented Neuts Cancelled Hypogranular Neuts Cancelled Large Granular Lymphs Cancelled # Lrg Granular Lymphs Cancelled Hairy Cells Cancelled Smudge Cells Cancelled Toxic Granulation Cancelled Toxic Vacuolation Cancelled Dohle Bodies Cancelled Srini Rods Cancelled Platelet Estimate Cancelled Hypogranular Platelets Cancelled Giant Platelets Cancelled Platelet Satelliting Cancelled RBC Morphology Cancelled Polychromasia Cancelled Hypochromasia Cancelled Poikilocytosis Cancelled Basophilic Stippling Cancelled Anisocytosis Cancelled Microcytosis Cancelled Macrocytosis Cancelled Spherocytes Cancelled Pappenheimer Bodies Cancelled Sickle Cells Cancelled Target Cells Cancelled Tear Drop Cells Cancelled Ovalocytes Cancelled Stomatocytes Cancelled Small-[place] Bodies Cancelled Echinocytes Cancelled Acanthocytes (Spur) Cancelled Rouleaux Cancelled RBC Agglutinates Cancelled Schistocytes Cancelled [place] Cell Cancelled Sodium 137 (136-145) mmol/L Potassium 3.7 (3.5-5.1) mmol/L Chloride 108 H (98-107) mmol/L Carbon Dioxide 20 L (21-32) mmol/L Anion Gap 9 (3-11) BUN 6 (6-23) mg/dl Creatinine 0.62 (0.6-1.2) mg/dl Est Cr Clr Drug Dosing 218.7 ml/min eGFR 127.45 BUN/Creatinine Ratio 9.7 L (10-20) Glucose 124 H (70-99(Fasting)) mg/dl Lactate 1.8 (0.4-2.0) mmol/L Calcium 8.3 L (8.6-10.3) mg/dl Total Bilirubin 0.2 (0.2-1.0) mg/dl AST 16 (13-39) U/L ALT 11 (7-52) U/L Alkaline Phosphatase 69 (34-104) U/L Total Protein 6.2 (6.0-8.3) gm/dl Albumin 3.2 L (3.4-5.0) gm/dl Globulin 3.0 (2.5-4.0) gm/dl Albumin/Globulin Ratio 1.1 (0.9-2) Ur Random Creatinine 72.5 mg/dl U Random Total Protein 11.3 (0-11.9) mg/dl Protein/Creatinin Ratio 0.2 (0-0.2) Blood Parasites ID Cancelled Results & Data Vital Signs (Past 12 Hours) Vital Signs Temp Pulse Resp BP O2 Del Method 12/05/23 20:32 37.6 C H 12/05/23 19:50 101 H 12/05/23 19:50 107/54 L 12/05/23 19:45 37.5 C 101 H 20 107/54 L Room Air 12/05/23 19:21 18 12/05/23 19:21 37.5 C 18 12/05/23 18:45 20 12/05/23 18:45 37.2 C 20 12/05/23 18:34 104 H 124/66
--- NOTE | 2023-12-05 23:20 | Obstetrical Progress Note ---
Date of Service December 05, 2023 Assessment & Plan Admission and Anticipated Discharge Date Admission Date: December 05, 2023 Subjective FHR is categ I now, baseline came down to 140's, good variability, accels+, no decels CXR completed, has not been read but appears WNL Continue to monitor Lab Results 12/05/23 12/05/23 12/05/23 Range/Units 19:28 19:33 20:32 WBC Cancelled 11.71 H RBC Cancelled 4.02 L Hgb Cancelled 12.0 Hct Cancelled 35.5 L MCV Cancelled 88.3 MCH Cancelled 29.9 MCHC Cancelled 33.8 RDW Std Deviation Cancelled 46.7 H RDW Coeff of Evelio Cancelled 14.6 H Plt Count Cancelled 206 MPV Cancelled 10.9 Immature Gran % (Auto) Cancelled 0.7 Neut % (Auto) Cancelled 76.7 Lymph % (Auto) Cancelled 17.0 [place] % (Auto) Cancelled 5.1 Eos % (Auto) Cancelled 0.3 Baso % (Auto) Cancelled 0.2 Neut # (Auto) Cancelled 8.99 H Lymph # (Auto) Cancelled 1.99 [place] # (Auto) Cancelled 0.60 H Eos # (Auto) Cancelled 0.03 Baso # (Auto) Cancelled 0.02 Immature Gran # (Auto) Cancelled 0.08 Absolute Nucleated RBC Cancelled Nucleated RBC % (auto) Cancelled Neutrophils % (Manual) Cancelled Band Neutrophils % Cancelled Lymphocytes % (Manual) Cancelled Prolymphocyte % Cancelled Reactive Lymphs % (Man) Cancelled Monocytes % (Manual) Cancelled Eosinophils % (Manual) Cancelled Basophils % (Manual) Cancelled Metamyelocytes % (Man) Cancelled Myelocytes % (Man) Cancelled Promyelocytes % (Man) Cancelled Blast Cells % (Manual) Cancelled Plasma Cell % (Manual) Cancelled Other Cells % Cancelled Nucleated RBC % Cancelled Neutrophils # (Manual) Cancelled Band Neutrophils # Cancelled Total Absolute Neuts Cancelled Lymphocytes # (Manual) Cancelled Prolymphocyte # Cancelled Reactive Lymphs # Cancelled Total Abs Lymphocytes Cancelled Monocytes # (Manual) Cancelled Eosinophils # (Manual) Cancelled Basophils # (Manual) Cancelled Metamyelocytes # (Man) Cancelled Myelocytes # (Manual) Cancelled Promyelocytes # (Man) Cancelled Blast Cells # (Man) Cancelled Plasma Cell # (Manual) Cancelled Other Cells # Cancelled Nucleated RBCs # (Man) Cancelled Hypersegmented Neuts Cancelled Hyposegmented Neuts Cancelled Hypogranular Neuts Cancelled Large Granular Lymphs Cancelled # Lrg Granular Lymphs Cancelled Hairy Cells Cancelled Smudge Cells Cancelled Toxic Granulation Cancelled Toxic Vacuolation Cancelled Dohle Bodies Cancelled Srini Rods Cancelled Platelet Estimate Cancelled Hypogranular Platelets Cancelled Giant Platelets Cancelled Platelet Satelliting Cancelled RBC Morphology Cancelled Polychromasia Cancelled Hypochromasia Cancelled Poikilocytosis Cancelled Basophilic Stippling Cancelled Anisocytosis Cancelled Microcytosis Cancelled Macrocytosis Cancelled Spherocytes Cancelled Pappenheimer Bodies Cancelled Sickle Cells Cancelled Target Cells Cancelled Tear Drop Cells Cancelled Ovalocytes Cancelled Stomatocytes Cancelled Small-[place] Bodies Cancelled Echinocytes Cancelled Acanthocytes (Spur) Cancelled Rouleaux Cancelled RBC Agglutinates Cancelled Schistocytes Cancelled Sezary Cell Cancelled Sodium 137 (136-145) mmol/L Potassium 3.7 (3.5-5.1) mmol/L Chloride 108 H (98-107) mmol/L Carbon Dioxide 20 L (21-32) mmol/L Anion Gap 9 (3-11) BUN 6 (6-23) mg/dl Creatinine 0.62 (0.6-1.2) mg/dl Est Cr Clr Drug Dosing 218.7 ml/min eGFR 127.45 BUN/Creatinine Ratio 9.7 L (10-20) Glucose 124 H (70-99(Fasting)) mg/dl Lactate 1.8 (0.4-2.0) mmol/L Calcium 8.3 L (8.6-10.3) mg/dl Total Bilirubin 0.2 (0.2-1.0) mg/dl AST 16 (13-39) U/L ALT 11 (7-52) U/L Alkaline Phosphatase 69 (34-104) U/L Total Protein 6.2 (6.0-8.3) gm/dl Albumin 3.2 L (3.4-5.0) gm/dl Globulin 3.0 (2.5-4.0) gm/dl Albumin/Globulin Ratio 1.1 (0.9-2) Ur Random Creatinine 72.5 mg/dl U Random Total Protein 11.3 (0-11.9) mg/dl Protein/Creatinin Ratio 0.2 (0-0.2) Blood Parasites ID Cancelled Results & Data Vital Signs (Past 12 Hours) Vital Signs Temp Pulse Resp BP O2 Del Method 12/05/23 22:07 18 12/05/23 22:07 37.1 C 18 12/05/23 22:07 100 H 12/05/23 22:07 116/57 L 12/05/23 20:32 37.6 C H 12/05/23 19:50 101 H 12/05/23 19:50 107/54 L 12/05/23 19:45 37.5 C 101 H 20 107/54 L Room Air 12/05/23 19:21 18 12/05/23 19:21 37.5 C 18 12/05/23 18:45 20 12/05/23 18:45 37.2 C 20 12/05/23 18:34 104 H 124/66
[2023-12-06] MEDS: LACTATED RINGER'S 1,000 ML IV SCH (00:07)
--- OUTSIDE RECORDS SUMMARY | 2023-12-06 02:14 | External Medical Summary | Summary of Care ---
Author Name Unknown Organization [facility] Address [address] [place] [facility] [place] [address] Phone [phone] Care Team Providers Care Wound Care Nurse Name Role Phone Victorina Waggoner Primary Care Provider Encounter Details Date Type Department Care Team (Late st Contact Info) Description 12/03/2023 Result Scan Unspecified Department <No scans attached> Allergies Active Allergy Reactions Criticality Noted Date Comments Penicillins Other (Please comment) 02/02/2000 Rash Does not remember severity of reaction d/t being very young documented as of this encounter (statuses as of 12/04/2023) Medications Medication Sig Dispensed Refills Start Date [...] as of this encounter (statuses as of 12/04/2023) Active Problems Problem Noted Date Diagnosed Date [...] this if it can be obtained at [facility]. Elevated TSH 07/01/2022 Allergic conjunctivitis 10/28/2016 Allergic rhinitis 10/28/2013 Estimated Date of Delivery Comme nts Yes 12/24/2023 Based on Ultraso und documented as of this encounter (statuses as of 12/04/2023) Resolved Problems Problem Noted Date Diagnosed Date Resolved Date 13 weeks gestation of 06/22/2023 10/05/2023 intolerance to labor, delivered, current hospitalization 09/05/2022 09/09/2022 Status post delivery 09/04/2022 10/13/2022 Encounter for induction of labor 09/02/2022 09/09/2022 Group beta Strep positive 08/05/2022 Overview: Clindamycin Susceptible Penicillin G Susceptible Vancomycin Susceptible Encounter for ultrasound to assess growth 07/21/2022 09/09/2022 Overview: Referred to [facility] for "borderline large for gestational age [...] as of this encounter (statuses as of 12/04/2023) Immunizations Name Administration Dates Next Due DTaP Dipth/Tet/Acell Pertussis (Infanrix), Peds 06/20/2005 H1N1 2009 Influenza, IM 01/06/2009 HPV Vaccine, 4-Valent 12/02/2013 IPV - Polio Virus Vaccine (Inact) 06/20/2005 MMR - Measles/Mumps/Rubella Vaccine 06/20/2005 Meningococcal Conjugate Vacc ine (Menactra/Menveo) 02/01/2017,10/24/2011 PPD 01/21/2021,06/11/2018 Pneumococcal Conjugate Vacci ne, 20-valent ([id number]) 09/21/2021 RSV Vac., Bivalent, Perfusio n F, [...] money to get more. Never true 08/16/2023 [place] Depression Scale Answer Date Recorded [place] Depression Scale Total 0 2023 The thought [...] 12/04/2023 2:30 PM EDT [facility] [address] [place] [address] Adan Robins MD [address] [place] [address] Prema Rubio Stress Tests [place] [address] [place] [address] 12/14/2023 3:15 PM EST Office Visit Gynecology/Obstetrics Stephen Rubio [address] [place] [address] Lovely Dumont PA-C [address] [place] [place] [address] Prema Rubio Stress Tests [place] [address] [place] [address] 12/26/2023 10:30 AM EST Office Visit Gynecology/Obstetrics Stephen Rubio [address] [place] [address] Tara Liao CRNP [address] [place] [address] Health Maintenance Due Date Last Done Comments [...] Procedure Name Priority Date/Time Associated Diagnosis Comments RADIOLOGY SCANNED RESULT 12/03/2023 documented in this encounter Results * RADIOLOGY SCANNED RESULT (12/03/2023) 12/03/2023 No Physician Data Unknown DIAGNOSTIC RAD IOLOGY SERVICES documented in this encounter Advance Directives * [...] the patient have Health Care Power of Personnel Clerks Supervisor? No * Full Code Date Activated Date Inactivated Comments 09/02/2022 5:18 PM 09/03/2022 5:55 PM This order r eflects the patients wishes and were consensually agreed upon. Question Answer Comments Discussion of Advance Directives occurred with: Patient Healthcare Agents on File Name Relationship Healthcare Agent Relationshi p Communication Mio [place] Spouse Health Care Repr esentative (appointed verbally by patient or by statute hierarchy) Care Teams Wound Care Nurse Relationship Specialty Start Date End Date Victorina Waggoner CRNP [address] [place] [address] PCP - General Nurse Practitioner 03/05/21 documented as of this encounter
--- OUTSIDE RECORDS SUMMARY | 2023-12-06 02:14 | External Medical Summary | Summary of Care ---
Author Name Unknown Organization [facility] Address [address] [facility] [place] [address] Phone [phone] Care Team Providers Care Dry Drug Worker Name Role Phone Victorina Waggoner Primary Care Provider Reason for Visit * Reason Comments Return Visit Encounter Details Date Type Department Care Team (Late st Contact Info) Description 12/04/2023 2:30 PM EDT Office Visit Gynecology/Obstetric s Stephen Rubio [address] [place] [address] Adan Robins MD [address] [place] [address] Prema Rubio Stress Tests [place] [address] [place] [address] Obesity in , antepartum*; Maternal asthma complicating ; H/O macrosomia in in prior , currently ; Previous delivery, antepartum condition or complication; Short interval between pregnancies complicating , antepartum; Supervision of high-risk , unspecified trimester; Antepartum anemia complicating ; Group beta Strep positive Allergies Active Allergy Reactions Criticality Noted Date [...] Strep positive 12/01/2023 Overview: Patient with PCN allergy Susceptibility Beta Streptococcus group B MICROBROTH DILUTIONS Clindamycin <=0.25 S Penicillin G <=0.06 S Vancomycin 0.5 S Antepartum anemia complicating 024 Overview: Started on [...] C/S x1 Plan: ERCD Maternal asthma complicating 4 Overview: Managed with albuterol as needed 05/29/23 [...] this if it can be obtained at [facility]. Elevated TSH 07/01/2022 Allergic conjunctivitis [...] assess growth 07/21/2022 09/09/2022 Overview: Referred to [facility] for "borderline large for gestational age [...] consider repeat testing due to large AC. [facility] ultrasound scheduled on 08/08/2022 Last Assessment [...] PPD 01/21/2021,06/11/2018 Pneumococcal Conjugate Vacci ne, 20-valent ([id number]) 09/21/2021 RSV Vac., Bivalent, Perfusio n F, [...] money to get more. Never true 08/16/2023 [place] Depression Scale Answer Date Recorded [place] Depression Scale Total 0 2023 The thought [...] Sign Reading Time Taken Comments Blood Pressure 110/64 12/04/2023 2:31 PM EDT Pulse - - Temperature - - Respiratory Rate - - Oxygen Saturation - - Inhaled Oxygen Concentration - - Weight 137.9 kg (304 lb) 12/04/2023 2:31 PM EDT Height 182.9 cm (6' 0.01") 12/04/2023 2:31 PM ED T Body Mass Index 41.22 12/04/2023 2:31 PM EDT documented in this encounter Progress Notes * Adan Robins MD - 12/04/2023 3:47 PM EDT Pt doing well Obesity NST: CAT1 Repeat c/sec xiomy on 12/19/23 ASSESSMENT assessment with Non-stress Test completed on 12/04/2023 at 37weeks gestation for indication of obesity heart baseline: 120 bpm Variability: Moderate Decelerations: Absent Accelerations: present Contractions: None NST start time: 1425 NST stop time: 1450 NST strip reviewed, interpreted, and approved by OB provider, maria guadalupe. NST strip stored in clinic storage file documented in this encounter Plan of Treatment Upcoming Encounters Date Type Department Care Team (Late st Contact Info) Description 12/14/2023 3:15 PM EST Office Visit Gynecology/Obstetrics [address] [place] [address] Lovely Dumont PA-C [address] [place] [address] RamiroPrema Stress Tests [place] [address] [place] [address] 12/26/2023 10:30 AM EST Office Visit Gynecology/Obstetrics Stephen Rubio [address] [place] [address] BackTara collins CRNP [address] [place] [address] Health Maintenance Due Date Last Done Comments [...] unspecified trimester Antepartum anemia complicating Anemia, antepartum Group beta Strep positive documented in this encounter Advance Directives * [...] the patient have Health Care Power of Machinist Wood? No * Full Code Date Activated Date Inactivated Comments 09/02/2022 5:18 PM 09/03/2022 5:55 PM This order r eflects the patients wishes and were consensually agreed upon. Question Answer Comments Discussion of Advance Directives occurred with: Patient Healthcare Agents on File Name Relationship Healthcare Agent Relationshi p Communication Mio [place] Spouse Health Care Repr esentative (appointed verbally by patient or by statute hierarchy) Care Teams Dry Drug Worker Relationship Specialty Start Date End Date Victorina Waggoner CRNP [facility] [address] [place] [address] PCP - General Nurse Practitioner 03/05/21 documented as of this encounter
--- OUTSIDE RECORDS SUMMARY | 2023-12-06 02:15 | External Medical Summary ---
Author Name Unknown Address Unknown Organization K01[place] [place] [address] [place] [address] Laboratory Report Ordering Provider Test Date Status JASMINCARTER 11/30/2023 09:33:31 Final Observation Date Value Abnormality Reference (Units) Status Bacteria identified in Specimen by Culture 11/30/2023 09:33:31 [id number]^BETA STREPTOCOCCUS GROUP B Abnormal Final Beta Streptococcus group B Performing [place] [facility] [place] [address] [place] [address] Ordering Provider Test Date Status CARTER CASTELLANOS 11/30/2023 09:33:31 Final Observation Date Value Abnormality Reference (Units ) Status Clindamycin 11/30/2023 09:33:31 <=0.25 Susceptible Final Penicillin susceptibility 11/30/2023 09:33:31 <=0.06 Susceptible Final Vancomycinsusceptibility 11/30/2023 09:33:31 0.5 Susceptible Final Test: Group B Strep Suscepti bility
Specimen Source: Vaginal Rectal
Specimen Type: Swab
Specimen Date: 11/30/2023932
Result Date: 12/04/2023926
Result Status: Final result
Abnormal: Yes
Resulting Lab: [facility] [place]
[address]
[place] [address]

CULTURE

Beta Streptococcus group B (Abnormal)

SUSCEPTIBILITY

Beta Streptococcus
group B
METHOD MICROBROTH
DILUTIONS

CLINDAMYCIN <=0.25 Susceptible
PENICILLIN G <=0.06 Susceptible
VANCOMYCIN 0.5 Susceptible

null Performing Location [facility] [place] [address] [facility] [address]
--- OUTSIDE RECORDS SUMMARY | 2023-12-06 03:53 | External Medical Summary | Summary of Care ---
Author Name Unknown Organization [facility] Address [address] [facility] [place] [address] Phone [phone] Care Team Providers Care Administrative Representative Name Role Phone Victorina Waggoner Primary Care Provider Encounter Details Date Type Department Care Team (Late st Contact Info) Description 12/05/2023 Telephone Gynecology/[facility] [address] [place] [address] Skye Yoder MD [address] [place] [address] Allergies Active Allergy Reactions Criticality Noted Date Comments Penicillins Other (Please comment) 02/02/2000 Rash Does not remember severity of reaction d/t being very young documented as of this encounter (statuses as of 12/05/2023) Medications Medication Sig Dispensed Refills Start Date [...] as of this encounter (statuses as of 12/05/2023) Active Problems Problem Noted Date Diagnosed Date [...] 09:38 AM PROTEIN/ CREATININE RATIO, URINE - ELIECERER 53 05/18/2023 09:45 AM Last Assessment & [...] this if it can be obtained at [facility]. Elevated TSH 07/01/2022 Allergic conjunctivitis 10/28/2016 Allergic rhinitis 10/28/2013 Estimated Date of Delivery Comme nts Yes 12/24/2023 Based on Ultraso und documented as of this encounter (statuses as of 12/05/2023) Resolved Problems Problem Noted Date Diagnosed Date Resolved Date 13 weeks gestation of 06/22/2023 10/05/2023 intolerance to labor, delivered, current hospitalization 09/05/2022 09/09/2022 Status post delivery 09/04/2022 10/13/2022 Encounter for induction of labor 09/02/2022 09/09/2022 Group beta Strep positive 08/05/2022 Overview: Clindamycin Susceptible Penicillin G Susceptible Vancomycin Susceptible Encounter for ultrasound to assess growth 07/21/2022 09/09/2022 Overview: Referred to [facility] for "borderline large for gestational age [...] as of this encounter (statuses as of 12/05/2023) Immunizations Name Administration Dates Next Due DTaP Dipth/Tet/Acell Pertussis (Infanrix), Peds 06/20/2005,06/04/2001,06/01/2000,08/2000,01/05/2000 H1N1 2009 Influenza, IM 01/06/2009 HIB PRP-T, 4 Dose, PF, IM (H iberix, ActHib) 06/04/2001,06/01/2000,03/15/2000,12/08 HPV Vaccine, 4-Valent 12/02/2013 Hepatitis B, 0-19 yrs 08/10/2000,1999,10/08 IPV - Polio Virus Vaccine (Inact) 2005,06/01/2000,03/15/2000,12/08 MMR - Measles/Mumps/Rubella Vaccine 06/20/2005,0 02/20/2001 Meningococcal Conjugate Vacc ine (Menactra/Menveo) 02/01/2017,10/24/2011 PPD 01/21/2021,06/11/2018 Pneumococcal Conjugate Vacci ne, 20-valent ([id number]) 09/21/2021 Pneumococcal Conjugate Vacci ne, 7 Valent [...] money to get more. Never true 08/16/2023 [place] Depression Scale Answer Date Recorded [place] Depression Scale Total 0 2023 The thought [...] Telephone Encounter - Lola Land RN - 12/05/2023 2:57 PM EDT Patient called and made aware. She was not able to answer how much the gush was. She states it ran down her leg for 5-6 seconds. Patient given advice recommendations and will be calling back in 1 hour to give up date on symptoms. Advised to call back with any changes. * Telephone Encounter - Skye Yoder MD - 12/05/2023 2:52 PM EDT How much ws the gush? A teaspoonful or a cup full? Why not wearing pads if she has been leaking? Recommend using a dry pad and walk, move around for 1 hour and the call back if still leaking, unless she had a big gush Thanks * Telephone Encounter - Lola Land RN - 12/05/2023 2:40 PM EDT Patient is calling [id number] c/o questioning ROM. Are you certain your membranes are ruptured? unknown Time this morning when she first woke up Amount: large gush Is the fluid clear? yes Are you having any contractions? no Patient had gush of clear fluid this morning that was going down her leg and is complaining of her underwear being soaked all day. Has not had to change her underwear multiple times today. She has not been wearing a pad. Denies pain, pressure, contractions, VB and having + FM. No appts in office. Please advise if patient should come to [facility] for evaluation . Lola Land RN documented in this encounter Plan of Treatment Upcoming Encounters Date Type Department Care Team (Late st Contact Info) Description 12/14/2023 3:15 PM EST Office Visit Gynecology/Obstetrics Stephen Rubio [address] [place] [address] Lovely Dumont PA-C [address] [place] [address] [place] [address] Rubio, Prema Stress Tests [place] [address] [place] [address] 12/26/2023 10:30 AM EST Office Visit Gynecology/Obstetrics Stephen Rubio [address] [place] [address] ChaparroerTara CRNP [address] [place] [address] Health Maintenance Due Date Last Done Comments [...] the patient have Health Care Power of Straight Cutter? No * Full Code Date Activated Date Inactivated Comments 09/02/2022 5:18 PM 09/03/2022 5:55 PM This order r eflects the patients wishes and were consensually agreed upon. Question Answer Comments Discussion of Advance Directives occurred with: Patient Healthcare Agents on File Name Relationship Healthcare Agent Relationshi p Communication Mio [place] Spouse Health Care Repr esentative (appointed verbally by patient or by statute hierarchy) Care Teams Administrative Representative Relationship Specialty Start Date End Date Victorina Waggoner CRNP [address] [place] [address] PCP - General Nurse Practitioner 03/05/21 documented as of this encounter
--- OUTSIDE RECORDS SUMMARY | 2023-12-06 03:53 | External Medical Summary | Summary of Care ---
Author Name Unknown Organization [facility] Address [address] [facility] [place] [address] Phone [phone] Care Team Providers Care Internal Investigator Name Role Phone Victorina Waggoner Primary Care Provider Encounter Details Date Type Department Care Team (Late st Contact Info) Description 12/05/2023 Telephone Gynecology/Obstetrics [facility] [address] [place] [address] Skye Yoder MD [address] [place] [address] Allergies Active Allergy Reactions Criticality Noted Date [...] it can be obtained at [facility]. Elevated TSH 07/01/2022 Allergic conjunctivitis 10/28/2016 [...] growth 07/21/2022 09/09/2022 Overview: Referred to [facility] for "borderline large for gestational age [...] PPD 01/21/2021,06/11/2018 Pneumococcal Conjugate Vacci ne, 20-valent ([id number]) 09/21/2021 Pneumococcal Conjugate Vacci ne, 7 Valent [...] money to get more. Never true 08/16/2023 [place] Depression Scale Answer Date Recorded [place] Depression Scale Total 0 2023 The thought [...] Gynecology/Obstetrics Stephen Rubio [address] [place] [address] Lovely Dumont PA-C [address] [place] [address] [place] [address] Rubio, Prema Stress Tests [place] [address] [place] [address] 12/26/2023 10:30 AM EST Office Visit Gynecology/Obstetrics Stephen Rubio [address] [place] [address] ChaparroerTara CRNP [address] [place] [address] Health Maintenance Due Date Last Done Comments [...] the patient have Health Care Power of Loader Helper? No * Full Code Date Activated Date Inactivated Comments 09/02/2022 5:18 PM 09/03/2022 5:55 PM This order r eflects the patients wishes and were consensually agreed upon. Question Answer Comments Discussion of Advance Directives occurred with: Patient Healthcare Agents on File Name Relationship Healthcare Agent Relationshi p Communication Mio [place] Spouse Health Care Repr esentative (appointed verbally by patient or by statute hierarchy) Care Teams Internal Investigator Relationship Specialty Start Date End Date Victorina Waggoner CRNP [address] [place] [address] PCP - General Nurse Practitioner 03/05/21 documented as of this encounter
--- OUTSIDE RECORDS SUMMARY | 2023-12-06 03:53 | External Medical Summary | Summary of Care ---
Author Name Unknown Organization [facility] Address [address] [facility] [place] [address] Phone [phone] Care Team Providers Care Barber Instructor Name Role Phone Victorina Waggoner Primary Care Provider Encounter Details Date Type Department Care Team (Late st Contact Info) Description 12/05/2023 Telephone Gynecology/Obstetrics [facility] [address] [place] [address] Skye Yoder MD [address] [place] [address] Allergies Active Allergy Reactions Criticality Noted Date [...] it can be obtained at [facility]. Elevated TSH 07/01/2022 Allergic conjunctivitis 10/28/2016 Allergic [...] assess growth 07/21/2022 09/09/2022 Overview: Referred to [facility] for "borderline large for gestational age abdominal [...] PPD 01/21/2021,06/11/2018 Pneumococcal Conjugate Vacci ne, 20-valent ([id number]) 09/21/2021 Pneumococcal Conjugate Vacci ne, 7 Valent [...] money to get more. Never true 08/16/2023 [place] Depression Scale Answer Date Recorded [place] Depression Scale Total 0 2023 The thought [...] EST Office Visit Gynecology/Obstetrics Stephen Rubio [address] [facility] [place] [address] Lovely Dumont PA-C [address] [place] [address] [place] [address] Rubio, Non Stress Tests [place] [address] [place] [address] 12/26/2023 10:30 AM EST Office Visit Gynecology/Obstetrics Stephen Rubio [address] [place] [address] Backer, LENORE Jasmine [address] [place] [address] Health Maintenance Due Date Last Done Comments [...] the patient have Health Care Power of Desktop Publishing Associate? No * Full Code Date Activated Date Inactivated Comments 09/02/2022 5:18 PM 09/03/2022 5:55 PM This order r eflects the patients wishes and were consensually agreed upon. Question Answer Comments Discussion of Advance Directives occurred with: Patient Healthcare Agents on File Name Relationship Healthcare Agent Relationshi p Communication Mio [place] Spouse Health Care Repr esentative (appointed verbally by patient or by statute hierarchy) Care Teams Barber Instructor Relationship Specialty Start Date End Date Victorina Waggoner CRNP [address] [place] [address] PCP - General Nurse Practitioner 03/05/21 documented as of this encounter
--- OUTSIDE RECORDS SUMMARY | 2023-12-06 03:53 | External Medical Summary | Summary of Care ---
Author Name Unknown Organization [facility] Address [address] [facility] [place] [address] Phone [phone] Care Team Providers Care Invoice Checker Name Role Phone Victorina Waggoner Primary Care Provider Encounter Details Date Type Department Care Team (Late st Contact Info) Description 12/05/2023 Telephone Gynecology/Obstetrics [facility] [address] [place] [address] Skye Yoder MD [address] [place] [address] Allergies Active Allergy Reactions Criticality Noted Date [...] this if it can be obtained at [facility]. Elevated TSH 07/01/2022 Allergic conjunctivitis [...] assess growth 07/21/2022 09/09/2022 Overview: Referred to [facility] for "borderline large for gestational age abdominal [...] PPD 01/21/2021,06/11/2018 Pneumococcal Conjugate Vacci ne, 20-valent ([id number]) 09/21/2021 Pneumococcal Conjugate Vacci ne, 7 Valent [...] money to get more. Never true 08/16/2023 [place] Depression Scale Answer Date Recorded [place] Depression Scale Total 0 2023 The thought [...] encounter Miscellaneous Notes * Telephone Encounter - Skye Yoder MD [...] 3:15 PM EST Office Visit Gynecology/Obstetrics Stephen Blanks [address] [place] [address] Lovely Dumont PA-C [address] [place] [address] [place] [address] Rubio, Prema Stress Tests [place] [address] [place] [address] 12/26/2023 10:30 AM EST Office Visit Gynecology/Obstetrics [place] Rubio [address] [place] [address] BackerTara CRNP [address] [place] [address] Health Maintenance Due Date Last Done Comments [...] the patient have Health Care Power of Cotton Ball Machine Tender? No * Full Code Date Activated Date Inactivated Comments 09/02/2022 5:18 PM 09/03/2022 5:55 PM This order r eflects the patients wishes and were consensually agreed upon. Question Answer Comments Discussion of Advance Directives occurred with: Patient Healthcare Agents on File Name Relationship Healthcare Agent Relationshi p Communication Mio [place] Spouse Health Care Repr esentative (appointed verbally by patient or by statute hierarchy) Care Teams Invoice Checker Relationship Specialty Start Date End Date Victorina Waggoner CRNP [address] [place] [address] PCP - General Nurse Practitioner 03/05/21 documented as of this encounter
--- NOTE | 2023-12-06 06:54 | XRay Report ---
XR chest 2V PA/lateral CLINICAL HISTORY: fever TECHNIQUE: 2 views of the chest were obtained. Comparison: Comparison is made to chest radiograph 01/01/2020 FINDINGS: No lines and tubes are seen. The cardiomediastinal silhouette is normal. Faint bibasilar airspace opa cities are seen. No evidence of pleural effusion or pneumothorax. IMPRESSION: Faint bibasilar airspace opacities which may represent atelectasis, pneumonia, and/or aspiration. ACT 112: Negative or not required by law. Electronically signed by: Mukesh Friedman M.D. 12/06/2023 6:53 AM
[2023-12-06 07:10] VITALS: RESP 18
[2023-12-06] MEDS ORDERED: PRENATAL VITAMIN 1 TAB PO SCH (08:00)
[2023-12-06] MEDS ORDERED: FERROUS SULFATE 325 MG TAB PO SCH (08:00)
--- NOTE | 2023-12-06 08:43 | Hospitalist Consultation ---
<Statement entered by Taco Sutton, DO - 12/06/23 12:46> I have discussed the case with the provider above. The patient was discharged prior to my ability to evaluate her at the bedside. I have reviewed the advanced practitioner's documentation, and I agree with, and take responsibility for that plan of care. Respiratory viral panel negative Encourage incentive spirometry. Date of Consultation December 06, 2023 Assessment & Plan (1) Antepartum tachycardia affecting care of mother: (2) Headache in : This is a 23yo F at 37 weeks who was admitted last evening by obgyn service for fever of 100.6 F and headache. Was given IV fluids and Tylenol with improvement of symptoms. Medicine service asked to see in consultation. Afebrile with T: 37.3 C Infectious work-up * Recent urine culture negative x 2 * CXR with faint bibasilar airspace opacities which may represent atelectasis, pneumonia, and/or aspiration * Respiratory viral panel negative Patient looks well and feels improved overnight with fluids. Afebrile here and no cough or SOB suggestive of PNA. Suspect CXR is showing atelectasis given gravid state, good air movement on exam. Do not feel antibiotics are indicated at this time. Instructed patient to contact provider if fever persists or she develops worsening cough/congestion, CP or SOB. Patient seen in collaboration with Dr. Sutton. Please see addendum. Thank you for this consultation. We will follow the patient with you during their hospital stay. You can reach a member of the [facility] Team 29/08 via YouLicense. I spent a total of 45 minutes coordinating, documenting, and providing care for this patient excluding time spent in the performance of separately billed services. History of Present Illness Reason for Consultation: eval for low grade fever Attending Physician: Skye Oswald MD History of Present Illness This is a 23yo F at 37 weeks who was admitted last evening by obgyn service for fever of 100.6 F and headache. Was given IV fluids and Tylenol with improvement of symptoms overnight. Patient states she developed fever yesterday as well as dull frontal headache. No known sick contacts. No cough, congestion, SOB or sore throat. No CP, palpitations, N/V, abd pain, dysuria, diarrhea or constipation. Recent urine culture negative x 2. CXR with faint bibasilar airspace opacities which may represent atelectasis, pneumonia, and/or aspiration. Resp viral panel negative. Allergies Allergy/AdvReac Type Severity Reaction Status Date / Time Penicillins Allergy Unknown HAPPENED Verified 12/05/23 19:43 AN Home Medications Medication Instructions Recorded Confirmed Type levocetirizine 5 mg tablet (Xyzal) 5 mg PO DAILY 07/13/22 12/05/23 History vits no.124-ferrous fum 1 tab PO DAILY 07/13/22 12/05/23 History 27 mg iron-folic acid 800 mcg tablet ( Vitamin) ferrous sulfate 325 mg (65 mg 325 mg PO DAILY 12/02/23 12/05/23 History iron) tablet (Iron (ferrous sulfate)) Patient History Medical History Asthma Surgical History Previous section Hx of tonsillectomy H/O removal of cyst Family History Other Asthma Social History Smoking Status: Never smoker Second Hand Exposure: No; Hx Alcohol Use: No Hx Substance Use: No Preferred Language: Macedonian Crane Crew Supervisor Required: No Beliefs That Will Affect Care: None marital status: Current Living Situation: Spouse, Parent and Family Feels Safe at Home: Yes Safety Concerns: Feels Safe At This Time Assistive Devices: None Review of Systems Review of Systems: At least ten systems reviewed and negative except as noted in the HPI. Physical Exam Physical Exam: General Appearance: WD/WN, vitals as above, NAD, sitting up in bedside chair, pleasant, conversing easily Head: normocephalic, atraumatic Eyes: normal inspection, PERRL ENT: oropharynx normal Neck: normal visual inspection Respiratory: normal respiratory effort, lungs clear to auscultation Cardiovascular: regular rate, rhythm, normal peripheral pulses, no BLE edema. Vessels: no JVD Chest: normal inspection of chest Abdomen/GI: normal bowel sounds,nontender Extremities/Musculoskeletal: no cyanosis or clubbing, extremities motor strength 5/5 Neurologic: PERRL, EOMI, CN's II-XI intact bilaterally and moves all extremities Psychiatric: A+Ox3, euthymic affect Skin: no rashes, normal color, warm/dry Results & Data Results & Data Vital Signs (Past 12 Hours) Vital Signs Temp Pulse Resp BP 12/06/23 07:06 37.3 C 95 H 18 97/50 L 12/06/23 06:29 37.0 C 12/06/23 06:29 37.0 C 12/06/23 03:57 16 12/06/23 03:57 37.0 C 16 12/06/23 01:09 36.9 C 100 H 16 113/58 L 12/05/23 22:07 18 12/05/23 22:07 37.1 C 18 12/05/23 22:07 100 H 12/05/23 22:07 116/57 L Laboratory Results Short CBC 12/05/23 12/05/23 Range/Units 19:33 20:32 WBC Cancelled 11.71 H Hgb Cancelled 12.0 Hct Cancelled 35.5 L Plt Count Cancelled 206 BMP 12/05/23 19:33 Sodium 137 Potassium 3.7 Chloride 108 H Carbon Dioxide 20 L BUN 6 Creatinine 0.62 Glucose 124 H Calcium 8.3 L Liver Function 12/05/23 Range/Units 19:33 Total Bilirubin 0.2 (0.2-1.0) mg/dl AST 16 (13-39) U/L ALT 11 (7-52) U/L Alkaline Phosphatase 69 (34-104) U/L Albumin 3.2 L (3.4-5.0) gm/dl Diagnostic Findings Chest X-Ray 12/05/23 21:26 XR chest 2V PA/lateral CLINICAL HISTORY: fever TECHNIQUE: 2 views of the chest were obtained. Comparison: Comparison is made to chest radiograph 01/01/2020 FINDINGS: No lines and tubes are seen. The cardiomediastinal silhouette is normal. Faint bibasilar airspace opacities are seen. No evidence of pleural effusion or pneumothorax. IMPRESSION: Faint bibasilar airspace opacities which may represent atelectasis, pneumonia, and/or aspiration. ACT 112: Negative or not required by law. Electronically signed by: Mukesh Friedman M.D. 12/06/2023 6:53 AM (2) Headache in Trimester: third trimester Qualified Code(s): O26.893 - Other specified related conditions, third trimester; R51.9 - Headache, unspecified
[2023-12-06] MEDS ORDERED: CETIRIZINE HCL 10 MG TABLET PO SCH (09:00)
[2023-12-06 09:35] LABS: Adenovirus PCR Not Detected (NotDetected); Bordetella parapertussis PCR Not Detected (NotDetected); Bordetella pertussis PCR Not Detected (NotDetected); Chlamydia pneumoniae PCR Not Detected (NotDetected); Coronavirus 229E PCR Not Detected (NotDetected); Coronavirus CoV-2 (COVID19)PCR Not Detected (NotDetected); Coronavirus HKU1 PCR Not Detected (NotDetected); Coronavirus NL63 PCR Not Detected (NotDetected); Coronavirus OC43PCR Not Detected (NotDetected); Human Metapneumovirus PCR Not Detected (NotDetected); Influenza A PCR Not Detected (NotDetected); Influenza B PCR Not Detected (NotDetected); Mycoplasma pneumoniae PCR Not Detected (NotDetected); Parainfluenza Virus 1 PCR Not Detected (NotDetected); Parainfluenza Virus 2 PCR Not Detected (NotDetected); Parainfluenza Virus 3 PCR Not Detected (NotDetected); Parainfluenza Virus 4 PCR Not Detected (NotDetected); Respiratory Syncytial VirusPCR Not Detected (NotDetected); Rhinovirus/Enterovirus PCR Not Detected (NotDetected)
[2023-12-06 10:02] VITALS: BP 122/65; PULSE 84
[2023-12-06 10:56] VITALS: TEMP 98.1
--- OUTSIDE RECORDS SUMMARY | 2023-12-06 12:45 | External Medical Summary | Summary of Care ---
Author Name Unknown Organization [facility] Address [address] [facility] [place] [address] Phone [phone] Care Team Providers Care Optical Designer Name Role Phone Victorina Waggoner Primary Care Provider Encounter Details Date Type Department Care Team (Late st Contact Info) Description 12/05/2023 Telephone Gynecology/Obstetrics [facility] [address] [place] [address] Skye Yoder MD [address] [place] [address] Allergies Active Allergy Reactions Criticality Noted Date [...] this if it can be obtained at [facility]. Elevated TSH 07/01/2022 Allergic conjunctivitis [...] assess growth 07/21/2022 09/09/2022 Overview: Referred to [facility] for "borderline large for gestational [...] PPD 01/21/2021,06/11/2018 Pneumococcal Conjugate Vacci ne, 20-valent ([id number]) 09/21/2021 Pneumococcal Conjugate Vacci ne, 7 Valent [...] money to get more. Never true 08/16/2023 [place] Depression Scale Answer Date Recorded [place] Depression Scale Total 0 2023 The thought [...] Telephone Encounter - Valencia Mccracken LPN - 12/05/2023 3:56 PM EDT Patient returned call, she only has a small amount of fluid and thinks it is from after using the bathroom. She is not concerned right now and ok monitor. * Telephone Encounter - Lola Land RN [...] L and D for evaluation . Lola aLnd RN documented in this encounter Plan of Treatment Upcoming Encounters Date Type Department Care Team (Late st Contact Info) Description 12/14/2023 3:15 PM EST Office Visit Gynecology/Obstetrics [facility] [address] [place] [address] Lovely Dumont PA-C [address] [place] [address] [place] [id number] Prema Rubio Stress Tests [place] [address] [place] [address] 12/26/2023 10:30 AM EST Office Visit Gynecology/Obstetrics [facility] [address] [place] [address] Tara Liao CRNP [address] [place] [address] Health Maintenance Due Date Last Done Comments [...] the patient have Health Care Power of Plastic Straightening Roll Operator? No * Full Code Date Activated [...] patient or by statute hierarchy) Care Teams Optical Designer Relationship Specialty Start Date End Date Victorina Waggoner CRNP [address] [place] [address] PCP - General Nurse Practitioner 03/05/21 documented as of this encounter
--- OUTSIDE RECORDS SUMMARY | 2023-12-06 12:45 | External Medical Summary | Summary of Care ---
Author Name Unknown Organization [facility] Address [address] [facility] [place] [address] Phone [phone] Care Team Providers Care Senior Technical Trainer Name Role Phone Victorina Waggoner Primary Care Provider Encounter Details Date Type Department Care Team (Late st Contact Info) Description 12/05/2023 Telephone Gynecology/Obstetrics [facility] [address] [place] [address] Skye Yoder MD [address] [place] [address] Allergies Active Allergy Reactions Criticality Noted Date [...] it can be obtained at [facility]. Elevated TSH 07/01/2022 Allergic conjunctivitis 10/28/2016 [...] assess growth 07/21/2022 09/09/2022 Overview: Referred to [facility] for "borderline large for gestational age [...] PPD 01/21/2021,06/11/2018 Pneumococcal Conjugate Vacci ne, 20-valent ([id number]) 09/21/2021 Pneumococcal Conjugate Vacci ne, 7 Valent [...] money to get more. Never true 08/16/2023 [place] Depression Scale Answer Date Recorded [place] Depression Scale Total 0 2023 The thought [...] Encounter - Skye Yoder MD - 12/05/2023 4:11 PM EDT Okay I know her I admitted her for back pain, UTI other day Could you pls let her know her urine cx is negative She does not need AB anymore * Telephone Encounter - Valencia Mccracken LPN [...] 12/14/2023 3:15 PM EST Office Visit Gynecology/Obstetrics [facility] [address] [place] [address] Lovely Dumont PA-C [address] [place] [address] [place] [address] Ramiro, Non Stress Tests [facility] [address] [place] [address] 12/26/2023 10:30 AM EST Office Visit Gynecology/Obstetrics Stephen [facility] [address] [place] [address] Backer, LENORE Jasmine [address] [place] [address] Health Maintenance Due Date Last Done Comments [...] the patient have Health Care Power of Retort Engineer? No * Full Code Date Activated Date Inactivated Comments 09/02/2022 5:18 PM 09/03/2022 5:55 PM This order r eflects the patients wishes and were consensually agreed upon. Question Answer Comments Discussion of Advance Directives occurred with: Patient Healthcare Agents on File Name Relationship Healthcare Agent Relationshi p Communication Mio Gallina Spouse Health Care Repr esentative (appointed verbally by patient or by statute hierarchy) Care Teams Senior Technical Trainer Relationship Specialty Start Date End Date Victorina Waggoner CRNP [address] [place] [address] PCP - General Nurse Practitioner 03/05/21 documented as of this encounter
== END 2023-12-06 10:25 | disposition home or self-care (01) ==
LOC: OPB 18:21 → 4S1 18:21

== ENCOUNTER 2023-12-19 05:16 | Inpatient (IN) ==
--- NOTE | 2023-12-07 13:15 | Anesthesiology Consultation ---
Date of Service December 07, 2023 Assessment & Plan (1) Encounter for pre-operative examination: Chart Review Chart Review: entry level web developer initiated -Infectious Disease screening: Per PAT nursing assessment on 12/07/23. Patient with fever/chills- started 12/05/23- admitted to [facility]- tested negative for Covid, flu and RSV. Started on Augmentin 12/06/23- feeling better as of 12/07/23. No known infectious disease contacts in past 10 days or current infectious disease symptoms. No recent travel outside the country. History Surgery Operation Date: 12/19/23 07:30 Proposed Procedures p Repeat Section - Skye Oswald MD Height/Weight Height: 6 ft Weight: 136.078 kg Allergies Allergy/AdvReac Type Severity Reaction Status Date / Time Penicillins Allergy Unknown unknown - Verified 12/07/23 12:34 as a child Medications Home Medications Medication Instructions Recorded Confirmed Last Taken levocetirizine 5 mg tablet (Xyzal) 5 mg PO HS 07/13/22 12/07/23 12/04/23 21:00 vits no.124-ferrous fum 1 tab PO HS 07/13/22 12/07/23 12/04/23 21:00 27 mg iron-folic acid 800 mcg tablet ( Vitamin) ferrous sulfate 325 mg (65 mg 325 mg PO HS 12/02/23 12/07/23 12/04/23 21:00 iron) tablet (Iron (ferrous sulfate)) amoxicillin 875 mg-potassium 1 tab PO BID #7 tabs 12/06/23 12/07/23 Unknown clavulanate 125 mg tablet albuterol sulfate 90 mcg/actuation 1 inh inhalation QID PRN sob 12/07/23 12/07/23 Unknown aerosol inhaler Past Medical History Medical History Asthma well controlled, has not used albuterol inhaler in "several years ~" History of COVID-2019: flu symptoms, resolved. URI (upper respiratory infection) 12/05/23 had chest xray, started on augmentin. presented with a fever/chills - no cough. covid testing done at [facility] and negative. Past Family History Family History Other Asthma No family history of adverse response to anesthesia Past Surgical History Surgical History Hx of tonsillectomy Previous section S/P pilonidal cyst excision Social History Smoking Status: Never smoker Do You Dip or Chew Tobacco: No Hx Alcohol Use: No Hx Substance Use: No substance use type: does not use Lab Results Anesthesia Preop Results Results Anesthesia Widget: WBC 11.71 K/ul (4.8-10.8) H 12/05/23 Hgb 12.0 g/dl (12.0-16.0) 12/05/23 Hct 35.5 % (37.0-47.0) L 12/05/23 Plt 206 K/uL (130-400) 12/05/23 Na 137 mmol/L (136-145) 12/05/23 K 3.7 mmol/L (3.5-5.1) 12/05/23 Cl 108 mmol/L (98-107) H 12/05/23 CO2 20 mmol/L (21-32) L 12/05/23 BUN 6 mg/dl (6-23) 12/05/23 Creat 0.62 mg/dl (0.6-1.2) 12/05/23 Glucose Level 124 mg/dl (70-99(Fasting)) H 12/05/23 Urine Color Yellow 12/02/23 Urine Appearance Cloudy (Clear) A 12/02/23 Urine pH 7.5 (4.5-7.5) 12/02/23 Urine Specific [place] 1.010 (1.000-1.030) 12/02/23 Urine Protein Negative (Negative) 12/02/23 Urine Glucose (UA) Negative (Negative) 12/02/23 Urine Ketones Negative (Negative) 12/02/23 Urine Blood Negative (Negative) 12/02/23 Urine Nitrite Negative (Negative) 12/02/23 Urine Bilirubin Negative (Negative) 12/02/23 Urine Urobilinogen Negative (Negative) 12/02/23 Urine Leukocyte Esterase 2+ (Negative) H 12/02/23 Urine WBC (Auto) 6-10 /hpf (0-5) H 12/02/23 Urine RBC (Auto) 0-2 /hpf (0-2) 12/02/23 Urine Hyaline Casts (Auto) 0-2 /lpf (0-2) 12/02/23 Urine Epithelial Cells (Auto) >20 /hpf (0-2) H 12/02/23 Urine Bacteria (Auto) 2+ (None Seen) H 12/02/23 Testing Laboratory Results 11/30/23= URINE CULTURE: Lactobacillus species Chest X-Ray Date: 12/05/23 FINDINGS: No lines and tubes are seen. The cardiomediastinal silhouette is normal. Faint bibasilar airspace opacities are seen. No evidence of pleural effusion or pneumothorax. IMPRESSION: Faint bibasilar airspace opacities which may represent atelectasis, pneumonia, and/or aspiration. (Started on Augmentin 12/06/23- feeling better as of 12/07/23 per PAT nursing interview)
[2023-12-19] MEDS: ACETAMINOPHEN 500 MG TAB PO SCH (06:27)
[2023-12-19 06:31] LABS: Hemoglobin 11.4 g/dl (12.0-16.0); Mean Corpuscular Hemoglobin 29.5 pg (25.0-34.0); Mean Corpuscular Hgb Conc 33.5 g/dL (32.0-36.0); Mean Corpuscular Volume 87.9 fL (80.0-100.0); Mean Platelet Volume 10.6 fL (9.4-12.4); Platelet Count 221 K/uL (130-400); RDW Coefficient of Variation 14.6 % (11.5-14.5); RDW Standard Deviation 46.4 fL (36.4-46.3); Red Blood Count 3.87 M/uL (4.20-5.40); White Blood Count 11.56 K/ul (4.8-10.8)
[2023-12-19] MEDS ORDERED: LACTATED RINGER'S 1,000 ML IV SCH ×2 (06:45→15:00)
[2023-12-19] MEDS: LACTATED RINGER'S 1,000 ML IV SCH (06:46)
[2023-12-19] MEDS ORDERED: MoRPHine SULFATE PF 1 MG/ML 10 ML AMP/VIAL ONE (07:03)
--- NOTE | 2023-12-19 07:42 | History & Physical Report ---
Date of Service December 19, 2023 Assessment & Plan (1) History of primary section: Plan: patient is a 23-year-old -0-0-1 at 39 weeks and 2 days of gestation who is presenting today for scheduled repeat low-transverse , declined TOLAC/ / Tubal sterilization. Vital signs stable afebrile, heart rate reassuring, Patient understand the risks and benefits and signed an informed consent, All questions were answered. (2) with 39 completed weeks gestation: Admission and Anticipated Discharge Date Admission Date: December 19, 2023 History of Present Illness Primary Care Provider: Hansel Avalos MD Patient is a 23-year-old -0-0-1 at 39.2 weeks who was scheduled for repeat at term for history of prior , declined TOLAC/. patient feels well, no complaints. Patient denies contractions, leakage of fluid, vaginal bleeding, fever chills, chest pain shortness of breath. She reports good movements. Patient understand the risks and benefits and signed an informed consent. Allergies Allergy/AdvReac Type Severity Reaction Status Date / Time Penicillins Allergy Unknown unknown - Verified 12/07/23 12:34 as a child Home Medications Medication Instructions Recorded Confirmed Type levocetirizine 5 mg tablet (Xyzal) 5 mg PO HS 07/13/22 12/07/23 History vits no.124-ferrous fum 1 tab PO HS 07/13/22 12/07/23 History 27 mg iron-folic acid 800 mcg tablet ( Vitamin) ferrous sulfate 325 mg (65 mg 325 mg PO HS 12/02/23 12/07/23 History iron) tablet (Iron (ferrous sulfate)) albuterol sulfate 90 mcg/actuation 1 inh inhalation QID PRN sob 12/07/23 12/07/23 History aerosol inhaler Patient History Medical History History of COVID-2019: flu symptoms, resolved. URI (upper respiratory infection) 12/05/23 had chest xray, started on augmentin. presented with a fever/chills - no cough. covid testing done at [facility] and negative. Asthma well controlled, has not used albuterol inhaler in "several years ~" Surgical History S/P pilonidal cyst excision Previous section Hx of tonsillectomy Family History Other Asthma No family history of adverse response to anesthesia Social History Smoking Status: Never smoker Second Hand Exposure: No; Do You Dip or Chew Tobacco: No; Tobacco Cessation Education Requested by Patient: No Hx Alcohol Use: No Hx Substance Use: No Preferred Language: Frisian Communication Ability: Effective Photo Graphics Librarian Required: No Beliefs That Will Affect Care: None marital status: Current Living Situation: Spouse and Family Other Information That Helps Us Care for You: No Feels Safe at Home: Yes Safety Concerns: Feels Safe At This Time Assistive Devices: Contacts and Glasses OB History FT, Primary LTCS Review of Systems as per Subjective / HPI Physical Exam Constitutional: WD/WN, vitals as above well developed, well nourished and comfortable Genitourinary: OB Exam Monitor Tracing: + external uterine monitor used and + category I Results & Data Vital Signs (Past 12 Hours) Vital Signs Temp Pulse Resp BP 12/19/23 05:48 36.5 C 91 H 18 104/55 L 12/19/23 05:44 36.5 C 91 H 18 104/55 L Laboratory Results Lab Results 12/19/23 Range/Units 05:52 WBC 11.56 H (4.8-10.8) K/ul RBC 3.87 L (4.20-5.40) M/uL Hgb 11.4 L (12.0-16.0) g/dl Hct 34.0 L (37.0-47.0) % MCV 87.9 (80.0-100.0) fL MCH 29.5 (25.0-34.0) pg MCHC 33.5 (32.0-36.0) g/dL RDW Std Deviation 46.4 H (36.4-46.3) fL RDW Coeff of Evelio 14.6 H (11.5-14.5) % Plt Count 221 (130-400) K/uL MPV 10.6 (9.4-12.4) fL Blood Type AB Positive Antibody Screen NEGATIVE
--- OUTSIDE RECORDS SUMMARY | 2023-12-19 09:25 | External Medical Summary | Summary of Care ---
Author Name Unknown Organization [facility] Address [address] [facility] [place] [address] Phone [phone] Care Team Providers Care Spooling Machine Operator Name Role Phone Victorina Waggoner Primary Care Provider Encounter Details Date Type Department Care Team (Late st Contact Info) Description 12/05/2023 Telephone Gynecology/Obstetrics [facility] [address] [place] [address] Skye Yoder MD [address] [place] [address] Allergies Active Allergy Reactions Criticality Noted Date Comments Penicillins Other (Please comment) 02/02/2000 Rash Does not remember severity of reaction d/t being very young documented as of this encounter (statuses as of 12/08/2023) Medications Medication Sig Dispensed Refills Start Date [...] as of this encounter (statuses as of 12/08/2023) Active Problems Problem Noted Date Diagnosed Date [...] 09:38 AM PROTEIN/ CREATININE RATIO, URINE - ELIECREER 53 05/18/2023 09:45 AM Last Assessment & [...] this if it can be obtained at [facility]. Elevated TSH 07/01/2022 Allergic conjunctivitis 10/28/2016 Allergic rhinitis 10/28/2013 Estimated Date of Delivery Comme nts Yes 12/24/2023 Based on Ultraso und documented as of this encounter (statuses as of 12/08/2023) Resolved Problems Problem Noted Date Diagnosed Date Resolved Date 13 weeks gestation of 06/22/2023 10/05/2023 intolerance to labor, delivered, current hospitalization 09/05/2022 09/09/2022 Status post delivery 09/04/2022 10/13/2022 Encounter for induction of labor 09/02/2022 09/09/2022 Group beta Strep positive 08/05/2022 Overview: Clindamycin Susceptible Penicillin G Susceptible Vancomycin Susceptible Encounter for ultrasound to assess growth 07/21/2022 09/09/2022 Overview: Referred to [facility] for "borderline large for gestational age [...] as of this encounter (statuses as of 12/08/2023) Immunizations Name Administration Dates Next Due DTaP Dipth/Tet/Acell Pertussis (Infanrix), Peds 06/20/2005,06/04/2001,06/01/2000,08/2000,01/05/2000 H1N1 2009 Influenza, IM 01/06/2009 HIB PRP-T, 4 Dose, PF, IM (H iberix, ActHib) 06/04/2001,06/01/2000,03/15/2000,12/08 HPV Vaccine, 4-Valent 12/02/2013 Hepatitis B, 0-19 yrs 08/10/2000,1999,10/08 IPV - Polio Virus Vaccine (Inact) 2005,06/01/2000,03/15/2000,12/08 MMR - Measles/Mumps/Rubella Vaccine 06/20/2005,0 02/20/2001 Meningococcal Conjugate Vacc ine (Menactra/Menveo) 02/01/2017,10/24/2011 PPD 01/21/2021,06/11/2018 Pneumococcal Conjugate Vacci ne, 20-valent ([id number]) 09/21/2021 Pneumococcal Conjugate Vacci ne, 7 Valent [...] money to get more. Never true 08/16/2023 Kyle Depression Scale Answer Date Recorded Kyle Depression Scale Total 0 2023 The thought [...] Telephone Encounter - Lola Land RN - 12/08/2023 10:22 AM EDT Patient called and made aware of below message and verbalized understanding. * Telephone Encounter - Skye Yoder MD [...] Gynecology/Obstetrics [facility] [address] [place] [address] Lovely Dumont PA-C [address] [place] [address] Ramiro, Non Stress Tests [place] [address] [place] [address] 12/26/2023 10:30 AM EST Office Visit Gynecology/Obstetrics Stephen [facility] [address] [place] [address] Backer, LENORE Jasmine [address] [place] [address] Health Maintenance Due Date Last Done Comments [...] the patient have Health Care Power of Concrete Pouring Supervisor? No * Full Code Date Activated Date Inactivated Comments 09/02/2022 5:18 PM 09/03/2022 5:55 PM This order r eflects the patients wishes and were consensually agreed upon. Question Answer Comments Discussion of Advance Directives occurred with: Patient Healthcare Agents on File Name Relationship Healthcare Agent Relationshi p Communication Mio [place] Spouse Health Care Repr esentative (appointed verbally by patient or by statute hierarchy) Care Teams Spooling Machine Operator Relationship Specialty Start Date End Date Victorina Waggoner CRNP [address] [place] [address] PCP - General Nurse Practitioner 03/05/21 documented as of this encounter
--- OUTSIDE RECORDS SUMMARY | 2023-12-19 09:25 | External Medical Summary | Summary of Care ---
Author Name Unknown Organization [facility] Address [address] [facility] [place] [address] Phone [phone] Care Team Providers Care Auto Heater Mechanic Name Role Phone Victorina Waggoner Primary Care Provider Reason for Visit * Reason Comments Return Visit Non Stress Test Encounter Details Date Type Department Care Team (Late st Contact Info) Description 12/14/2023 3:15 PM EST Office Visit Gynecology/Obstetric s Stephen Rubio [address] [place] [phone] Lovely Dumont PA-C [address] [place] [address] [place] Non Stress Tests [facility] [address] [place] [phone] Supervision of high-risk , third trimester*; Obesity in , antepartum; Class 2 obesity; Antepartum anemia complicating ; Maternal asthma complicating ; H/O macrosomia in infant in prior , currently ; Previous delivery, antepartum condition or complication; Short interval between pregnancies complicating , antepartum; Group beta Strep positive Allergies Active Allergy Reactions Criticality Noted Date Comments Penicillins Other (Please comment) 02/02/2000 Rash Does not remember severity of reaction d/t being very young documented as of this encounter (statuses as of 12/14/2023) Medications Medication Sig Dispensed Refills Start Date [...] Active Betamethasone Dipropionate 0.05 % External Cream (Diprosone)Indication s:Other atopic dermatitis Apply to eczema on trunk, arms and legs twice daily as needed 45 g 3 07/12/2023 Active Acetaminophen Extra Strength 500 MG Oral Tablet PLEASE SEE ATTACHED FOR DETAILED DIRECTIONS 07/12/2023 Active Iron-Vitamin C 65-125 MG Oral Tablet (Vitron C)Indications:Antepar roldan anemia complicating Take 1 Tablet by mouth in the morning. 30 Tablet 4 10/05/2023 Active Clotrimazole 1 % Vaginal CreamIndications:Debbie lial vaginitis Administer 1 Applicator into the vagina at bedtime for 7 days. For 7 days. 45 g 12/11/2023 12/18/2023 Active documented as of this encounter (statuses as of 12/14/2023) Active Problems Problem Noted Date Diagnosed Date [...] this if it can be obtained at [facility]. Elevated TSH 07/01/2022 Allergic conjunctivitis 10/28/2016 Allergic rhinitis 10/28/2013 Estimated Date of Delivery Comme nts Yes 12/24/2023 Based on Ultraso und documented as of this encounter (statuses as of 12/14/2023) Resolved Problems Problem Noted Date Diagnosed Date Resolved Date 13 weeks gestation of 06/22/2023 10/05/2023 intolerance to labor, delivered, current hospitalization 09/05/2022 09/09/2022 Status post delivery 09/04/2022 10/13/2022 Encounter for induction of labor 09/02/2022 09/09/2022 Group beta Strep positive 08/05/2022 Overview: Clindamycin Susceptible Penicillin G Susceptible Vancomycin Susceptible Encounter for ultrasound to assess growth 07/21/2022 09/09/2022 Overview: Referred to [facility] for "borderline large for gestational [...] consider repeat testing due to large AC. [facility] ultrasound scheduled on 08/08/2022 Last Assessment [...] as of this encounter (statuses as of 12/14/2023) Immunizations Name Administration Dates Next Due DTaP Dipth/Tet/Acell Pertussis (Infanrix), Peds 06/20/2005 H1N1 2009 Influenza, IM 01/06/2009 HPV Vaccine, 4-Valent 12/02/2013 IPV - Polio Virus Vaccine (Inact) 06/20/2005 MMR - Measles/Mumps/Rubella Vaccine 06/20/2005 Meningococcal Conjugate Vacc ine (Menactra/Menveo) 02/01/2017,10/24/2011 PPD 01/21/2021,06/11/2018 Pneumococcal Conjugate Vacci ne, 20-valent ([id number]) 09/21/2021 RSV Vac., Bivalent, Perfusio n F, [...] money to get more. Never true 08/16/2023 [place] Depression Scale Answer Date Recorded [place] Depression Scale Total 0 2023 The thought [...] No 08/16/2023 Does the household have a [facility] of income? (Household - for ages [...] Reading Time Taken Comments Blood Pressure 110/62 12/14/2023 3:43 PM EST Pulse - - Temperature - - Respiratory Rate - - Oxygen Saturation - - Inhaled Oxygen Concentration - - Weight 139.7 kg (308 lb) 12/14/2023 3:43 PM EST Height - - Body Mass Index 41.76 12/04/2023 2:31 PM EDT documented in this encounter Progress Notes * Lovely Dumont PA-C - 12/14/2023 3:00 PM EST Janey Loyola is a 23 year old female here for her routine OB appointment at 38w4d Her Estimated Date of Delivery: 12/24/23 REVIEW OF SYSTEMS She affirms movement. Denies vaginal bleeding, LOF, contractions. PHYSICAL EXAM Filed Vitals: 12/14/23 1543 BP: 110/62 Weight: (!) 139.7 kg (308 lb) ASSESSMENT assessment with Non-stress Test completed on 12/14/2023 at 38w4d weeks gestation for indication of Class 2 obesity heart baseline: 125 bpm Variability: Moderate Decelerations: absent Accelerations: present Contractions: None NST start time: 1624 NST stop time: 1652 NST strip reviewed, interpreted, and approved by OB provider, Lovely Dumont PA-C. Reviewed strip with Dr. Julienne MD. NST strip stored in clinic storage file ASSESSMENT/PLAN Supervision of high-risk , third trimester (Primary) Obesity in , antepartum Class 2 obesity Antepartum anemia complicating Maternal asthma complicating H/O macrosomia in in prior , currently Previous delivery, antepartum condition or complication Short interval between pregnancies complicating , antepartum Group beta Strep positive Supervision of - labor precautions and kick counts reviewed - scheduled for ERCS scheduled 12/19/2023. RTO PRN with further questions or concerns. Lovely Dumont PA-C 12/14/2023 documented in this encounter Plan of Treatment Upcoming Encounters Date Type Department Care Team (Late st Contact Info) Description 12/26/2023 10:30 AM EST Office Visit Gynecology/Obst[facility]s [facility] [address] [place] [phone] BackerTara CRNP [address] [place] [phone] Health Maintenance Due Date Last Done Comments [...] or the puerperium, antepartum condition or complication Class 2 obesity Antepartum anemia complicating Anemia, antepartum Maternal asthma complicating Other current maternal conditions classifiable elsewhere, complicating , childbirth, or the puerperium, unspecified as to episode of care H/O macrosomia in infant in prior , currently with other poor obstetric history Previous delivery, antepartum condition or complication Short interval between pregnancies complicating , antepartum Supervision of other high-risk Group beta Strep positive documented in this [...] the patient have Health Care Power of Equities Trader? No * Full Code Date Activated Date Inactivated Comments 09/02/2022 5:18 PM 09/03/2022 5:55 PM This order r eflects the patients wishes and were consensually agreed upon. Question Answer Comments Discussion of Advance Directives occurred with: Patient Healthcare Agents on File Name Relationship Healthcare Agent Relationshi p Communication Mio Blanding Spouse Health Care Repr esentative (appointed verbally by patient or by statute hierarchy) Care Teams Auto Heater Mechanic Relationship Specialty Start Date End Date Victorina Waggoner CRNP [address] [place] [phone] PCP - General Nurse Practitioner 03/05/21 documented as of this encounter
--- OUTSIDE RECORDS SUMMARY | 2023-12-19 09:25 | External Medical Summary | Summary of Care ---
Author Name Unknown Organization [facility] Address [address] [facility] [address] Phone [phone] Care Team Providers Care Rate Supervisor Name Role Phone Victorina Waggoner Primary Care Provider Encounter Details Date Type Department Care Team (Late st Contact Info) Description 12/11/2023 2:40 PM EST [facility] [address] [place] [address] Butch Mitchell MD [address] [place] [address] Monilial vaginitis*; state, incidental Allergies Active Allergy Reactions Criticality Noted Date Comments Penicillins Other (Please comment) 02/02/2000 Rash Does not remember severity of reaction d/t being very young documented as of this encounter (statuses as of 12/11/2023) Medications Medication Sig Dispensed Refills Start Date [...] as of this encounter (statuses as of 12/11/2023) Active Problems Problem Noted Date Diagnosed Date [...] this if it can be obtained at [facility]. Elevated TSH 07/01/2022 Allergic conjunctivitis 10/28/2016 Allergic rhinitis 10/28/2013 Estimated Date of Delivery Comme nts Yes 12/24/2023 Based on Ultraso und documented as of this encounter (statuses as of 12/11/2023) Resolved Problems Problem Noted Date Diagnosed Date Resolved Date 13 weeks gestation of 06/22/2023 10/05/2023 intolerance to labor, delivered, current hospitalization 09/05/2022 09/09/2022 Status post delivery 09/04/2022 10/13/2022 Encounter for induction of labor 09/02/2022 09/09/2022 Group beta Strep positive 08/05/2022 Overview: Clindamycin Susceptible Penicillin G Susceptible Vancomycin Susceptible Encounter for ultrasound to assess growth 07/21/2022 09/09/2022 Overview: Referred to [facility] for "borderline large for gestational age [...] consider repeat testing due to large AC. [facility] ultrasound scheduled on 08/08/2022 Last Assessment [...] as of this encounter (statuses as of 12/11/2023) Immunizations Name Administration Dates Next Due DTaP Dipth/Tet/Acell Pertussis (Infanrix), Peds 06/20/2005 H1N1 2009 Influenza, IM 01/06/2009 HPV Vaccine, 4-Valent 12/02/2013 IPV - Polio Virus Vaccine (Inact) 06/20/2005 MMR - Measles/Mumps/Rubella Vaccine 06/20/2005 Meningococcal Conjugate Vacc ine (Menactra/Menveo) 02/01/2017,10/24/2011 PPD 01/21/2021,06/11/2018 Pneumococcal Conjugate Vacci ne, 20-valent ([id number]) 09/21/2021 RSV Vac., Bivalent, Perfusio n F, [...] money to get more. Never true 08/16/2023 [place] Depression Scale Answer Date Recorded [place] Depression Scale Total 0 2023 The thought [...] as of this encounter Progress Notes * Butch Mitchell MD - 12/11/2023 3:08 PM EST Patient location: HOME. I was in a hospital or clinic location. After connecting through televideo,patient was verified with two unique identifiers. Patient (or authorized legal manufacturing sales representative) was then informed that this was a Telemedicine visit and being conducted confidentially over secure lines. Methods to assure confidentiality were taken. Patient acknowledged consent and understanding of pr ivacy and security of the Telemedicine visit. The patient agreed to participate. Subjective: Janey Loyola is a 23 year old female. No chief complaint on file. HPI: 23-year-old who is almost 9 months in his scheduled repeat C- section 12 19 23. She believes has a yeast infection as she has vaginal itching burning. She tried Monistat topical but itdid not help. She had hospitalized December 01. She was empirically treated with antibiotics as itwas thought that she had urinary tract infection although as of December 04 urine culture was negative and she was asked to stop the antibiotic. She thinks that it was the antibiotic led her currentsymptoms. Patient Active Problem List Diagnosis Allergic rhinitis Allergic conjunctivitis Elevated TSH Obesity in , antepartum Maternal asthma complicating H/O macrosomia in infant in prior , currently Previous delivery, antepartum condition or complication Short interval between pregnancies complicating , antepartum Acute maxillary sinusitis Supervision of high-risk , unspecified trimester Antepartum anemia complicating Group beta Strep positive Current Outpatient Medications Medication Sig Dispense Refill Clotrimazole 1 % Vaginal Cream Administer 1 Applicator into the vagina at bedtime for 7 days. For 7days. 45 g 0 Levocetirizine Dihydrochloride 5 MG Oral Tablet Use [...] Tablet PLEASE SEE ATTACHED FOR DETAILED DIRECTIONS Iron-Vitamin C 65-125 MG Oral Tablet (Vitron C) Take 1 Tablet by mouth in the morning. 30 Tablet 4 No current facility-administered medications for this visit. Review of patient's allergies indicates: Allergen Reactions Penicillins Other (Please comment) Rash Does not remember severity of reaction d/t being very young Objective: LMP 03/09/2023 Physical Exam: CONST: alert, pleasant, no acute distress ASSESSMENT/PLAN: Monilial vaginitis (Primary) the patient who is 39 weeks in . - Clotrimazole 1 % Vaginal Cream; Administer 1 Applicator into the vagina at bedtime for 7 days. For 7 days. state, incidental Butch Mitchell MD documented in this encounter Plan of Treatment Upcoming Encounters Date Type Department Care Team (Late st Contact Info) Description 12/14/2023 3:15 PM EST Office Visit Gynecology/Obstetrics Stephen Rubio [address] [place] [phone] Lovely Dumont PA-C [address] [place] [address] Prema Rubio Stress Tests [facility] [address] [place] [phone] 12/26/2023 10:30 AM EST Office Visit Gynecology/Obstetrics Stephen Rubio [address] [place] [address] Tara Liao CRNP [address] [place] [address] Health Maintenance Due Date Last Done Comments [...] as of this encounter Visit Diagnoses Diagnosis Monilial vaginitis- Primary Candidiasis of vulva and vagina state, incidental documented in this encounter Advance [...] the patient have Health Care Power of Truck Packer? No * Full Code Date Activated Date [...] patient or by statute hierarchy) Care Teams Rate Supervisor Relationship Specialty Start Date End Date Victorina Waggoner CRNP [address] [place] [phone] PCP - General Nurse Practitioner 03/05/21 documented as of this encounter
[2023-12-19] MEDS: CITRIC ACID/SODIUM CITRATE 15 ML UDC PO SCH (09:53)
[2023-12-19] MEDS: CLINDAMYCIN/D5W 900 MG/50 ML BAG IV SCH (09:55)
[2023-12-19] MEDS ORDERED: ACETAMINOPHEN 1,000 MG/100 ML VIAL IV ONE (12:34)
[2023-12-19] MEDS ORDERED: SODIUM CHLORIDE 0.9% 100 ML IV PRN (13:29)
[2023-12-19] MEDS ORDERED: SODIUM CHLORIDE 0.9% 50 ML IV PRN (13:29)
[2023-12-19] MEDS ORDERED: PHENYLEPHRINE HCL 25 MG/250 ML NSS IV ONE (13:37)
[2023-12-19] MEDS ORDERED: OXYTOCIN 10 UNITS/ML VIAL ONE (13:38)
[2023-12-19] MEDS ORDERED: DEXAMETHASONE SOD INJ 4 MG/ML VIAL ONE (13:38)
[2023-12-19] MEDS ORDERED: ePHEDrine sulfate 50 MG/5 ML SYR ONE (13:38)
[2023-12-19] MEDS ORDERED: ONDANSETRON INJ 2 MG/ML 2 ML VIAL ONE (13:38)
[2023-12-19] MEDS ORDERED: ATROPINE SULFATE 0.4 MG/ML 2ML SYR IV ONE (13:38)
[2023-12-19] MEDS ORDERED: METOCLOPRAMIDE HCL INJ 5 MG/ML 2 ML VIAL ONE (13:38)
[2023-12-19] MEDS ORDERED: NALOXONE HCL 1 MG in SODIUM CHLORIDE 0.9% 1,000 ML IV PRN (13:40)
[2023-12-19] MEDS ORDERED: ONDANSETRON INJ 2 MG/ML 2 ML VIAL IV PRN ×2 (13:40→14:39)
[2023-12-19] MEDS ORDERED: PROMETHAZINE 6.25 MG/50.25 ML BAG IV PRN (13:40)
[2023-12-19] MEDS ORDERED: NALOXONE HCL 0.08 MG in SYRINGE 1.8 ML IV PRN (13:40)
[2023-12-19] MEDS ORDERED: oxyCODONE HCL IR 5 MG TAB (IMMEDIATE RELEASE) PO PRN (13:40)
[2023-12-19] MEDS ORDERED: NALOXONE HCL 0.4 MG/1 ML VIAL/CARP IV PRN (13:40)
[2023-12-19] MEDS ORDERED: MoRPHine SULFATE 2 MG/ML CARP IV PRN (13:40)
[2023-12-19] MEDS ORDERED: ePHEDrine sulfate 50 MG/ML AMP IV PRN (13:40)
[2023-12-19] MEDS ORDERED: DC INTRASPINAL MORPHINE SCH (13:45)
[2023-12-19] MEDS ORDERED: NO NARCOTICS OR SEDATIVES SCH (13:45)
[2023-12-19] MEDS ORDERED: LIDOCAINE 2% MPF LOCAL 5 ML VIAL ONE (13:46)
[2023-12-19] MEDS ORDERED: PROPOFOL IV EMULSION 10 MG/ML 20 ML VIAL IV ONE (13:46)
[2023-12-19] MEDS: ceFAZolin 3000MG 3,000 MG/72.5 ML BAG IV SCH (13:53)
[2023-12-19] MEDS ORDERED: TRANEXAMIC ACID / 0.7% NACL 1000MG/100ML BAG IV ONE (14:09)
[2023-12-19] MEDS: GELATIN SPONGE SZ 100 ONE (14:25)
[2023-12-19] MEDS ORDERED: SENNA 8.6 MG TAB PO PRN (14:39)
[2023-12-19] MEDS ORDERED: BENZOCAINE 20% SPRY 85 APPLN/85 GM CAN EXT PRN (14:39)
[2023-12-19] MEDS ORDERED: CALCIUM CARBONATE 500 MG CHEWABLE TAB PO PRN (14:39)
[2023-12-19] MEDS ORDERED: PROMETHAZINE 12.5 MG/50.5 ML BAG IV PRN (14:39)
[2023-12-19] MEDS ORDERED: MAGNESIUM HYDROXIDE SUSP 30 ML UDC PO PRN (14:39)
[2023-12-19] MEDS ORDERED: diphenhydrAMINE 50 MG/ML VIAL IV PRN (14:39)
[2023-12-19] MEDS ORDERED: HYDROCORTISONE ACETATE 25 MG SUPP PR PRN (14:39)
[2023-12-19] MEDS ORDERED: HYDROmorphone INJ 0.5 MG/0.5 ML SYR IV PRN (14:39)
[2023-12-19] MEDS ORDERED: diphenhydrAMINE Capsule 25 MG CAP PO PRN (14:39)
[2023-12-19] MEDS: OXYTOCIN 20 UNITS/LR 1,002 ML IV SCH (14:45)
--- NOTE | 2023-12-19 14:51 | Operative Report ---
Post Operative Report Pre & Post Diagnosis Operation Date: 12/19/23 07:30 Pre-Op Diagnosis: Previous Section Post-Op Diagnosis: Previous Section I identified the patient and participated in the time-out.: Yes Procedure Operation Date: 12/19/23 07:30 Actual Procedures p Repeat Section [employer] at 1333 - Skye Oswald MD Surgeon Skye Oswald MD Manager Utilization Management Dr. Matthews Quantitative Blood Loss (QBL) 1528 Findings Consistent with Post-Op Diagnosis Baby in footling breech presentation, viable female , delivered at , Apgars 8/9, weight 3680 gr, nuchal cordx1, true knot on long cord Maternal findings: Adhesion of abdominal wall to anterior uterine wall, adhesion of omentum to anterior abdominal wall No developed lower uterine segment which was thick Normal fallopian tubes and ovaries Specimens Placenta, cord Drains Hurtado 125 ml clear urine Anesthesia Type Spinal Complications none Disposition Accompanied Patient To Recovery: Yes Indications Patient is a 23 yo at 39.2 wks with prior C section 15 months ago, breech presentation Description of Procedure Patient was taken to operating room where a spinal anesthesia was given without difficulty. She was placed in dorsal supine position with a leftward tilt. She was prepared and draped in usual sterile fashion. A financial skin incision was made and carried through to the underlying layer of fascia with the Bovie. Fascia was incised in the midline and incision was extended laterally with the help of Prakash scissors. Then the upper aspect of the fascial incision was grasped with 2 Haile clamps elevated the underlying rectus muscles were dissected off sharply with Prakash scissors. Same thing was done on the lower incision. There was a lot of adhesion scarring over and under the fascia. Then the muscles were already separate in the midline, peritoneum was identified entered bluntly with fingers. Peritoneal incision was extended superior and inferiorly with good visualization of the bladder. The omentum was attached to both side of peritoneum, anterior abdominal wall. It was coagulated and cut from its thinnest part. It was made free, was hemostatic. There were 2 band like adhesions between anterior uterine wall and abdominal wall. Those were cut with bovie tip and released. The bladder blade was inserted. Vesicouterine peritoneum was not clearly identified, the lower uterine segment was thick, not developed due to presenting parts were feet and high, patient has not labored. grasped with pickups and entered sharply with Metzenbaum scissors, bladder flap was created digitally and bladder blade was reinserted. Uterus was incised in transverse fashion, incision was extended laterally with bandage scissors, membranes were ruptured and clear fluid was obtained. Baby's feet and legs were delivered followed by buttocks and trunk. Then the arms were reached and brought to flexion positions and delivered followed by head without difficulty. Mouth and nose were suctioned there was dried on the field. The cord was clamped timesx2 and cut and then the infant was handed off to the pediatric team. Then the placenta was delivered manually as intact and complete. Unable to externalize the uterus , it was kept in pelvis. Uterine incision was repaired with 0 Vicryl in a running locked fashion, second umbricating layer was placed with the same suture in running locked fashion. Hemostatic sutures were placed over the incision. The serosal defect from adhesion was repaired with 2/0 Vicryl. It was hemostatic. Excellent hemostasis achieved. Pelvis was irrigated with warm normal saline and suctioned. Incision was checked to be hemostatic again. Fallopian tubes and ovaries were normal. The parietal peritoneum was reapproximated with 3-0 Vicryl in a running fashion and the muscles were reapproximated with 2-0 Vicrylin a running fashion. All of the fascia and rectus muscles were hemostatic. Rectus fascia was reapproximated with #1 Vicryl starting from both columns meeting in the midline. Subcuticular fat tissue was brought together with 2-0 Vicryl in a running fash ion, skin was closed with 4-0 Monocryl in a subcuticular cuticular fashion. The mom and baby tolerated procedure well. Sponge needle instrument count was correct x3. No complications happened, I was present during whole procedure. She was given 3 grams of Cefazolin before surgery. My speech language pathology assistant was needed for retraction, hemostasis and aid during delivery of . I attest to the content of the Intraoperative Record and any orders documented therein. Any exceptions are noted below.
[2023-12-19] MEDS: ACETAMINOPHEN 500 MG TAB PO ONE (15:34)
[2023-12-19] MEDS: METHYLERGONOVINE MALEATE 0.2 MG/ML AMP IM STA (15:37)
--- NOTE | 2023-12-19 15:48 | Anesthesiology Progress Note ---
Date of Service December 19, 2023 Anesthesia Post Procedure Vital Signs Vital Signs: Temp Pulse Resp BP Pulse Ox 12/19/23 15:45 93 H 104/52 L 12/19/23 15:35 86 102/55 L 12/19/23 15:28 92 H 106/62 12/19/23 15:15 94 H 94/53 L 12/19/23 15:05 20 12/19/23 15:05 106 H 99/53 L 12/19/23 14:57 97 H 98/52 L 12/19/23 14:55 20 12/19/23 14:55 111 H 89/51 L 12/19/23 14:54 89 92 12/19/23 14:52 107 H 92 12/19/23 14:49 93 H 100 12/19/23 14:48 94 H 91/50 L 12/19/23 14:47 93 H 85/45 L 12/19/23 14:46 184/108 H 12/19/23 14:45 36.5 C 20 12/19/23 14:44 103 H 99 12/19/23 12:53 36.5 C 20 12/19/23 12:49 93 H 98/54 L 12/19/23 09:47 85 99/58 L 12/19/23 05:48 36.5 C 91 H 18 104/55 L 12/19/23 05:44 36.5 C 91 H 18 104/55 L Pain Intensity Abdomen: Pain Intensity: 2 Transfer of Care Handoff Completed per policy Notes Mental Status: alert / awake / arousable Patient Amnestic to Procedure: Yes Nausea / Vomiting: adequately controlled Pain: adequately controlled Airway Patency, RR, SpO2: stable & adequate BP & HR: stable & adequate Hydration State: stable & adequate Neuraxial Anesthesia: was administered and sensory block is resolving Anesthetic Complications: no major complications apparent
[2023-12-19] MEDS: DIPHTHER/TETAN/PERTUS Vaccine (Tdap, Adol/Adult) 0.5mL IM ONE (17:03)
[2023-12-19] MEDS: MoRPHine SULFATE PF 1 MG/ML 10 ML AMP/VIAL INT SPINAL ONE (17:50)
[2023-12-19] MEDS: OXYTOCIN 20 UNITS/1002ML LR IV ONE (17:51)
[2023-12-19] MEDS: MEASLES, MUMPS & RUBELLA VIRUS VACCINE (MMR) 0.5ML VIAL SQ ONE (17:51)
[2023-12-19] MEDS: GELATIN SPONGE SZ 100 EXT STA (17:56)
[2023-12-19] MEDS: diphenhydrAMINE 50 MG/ML VIAL IV PRN (17:58)
[2023-12-19] MEDS: SIMETHICONE 80 MG CHEW PO SCH (17:58)
[2023-12-19 19:33] LABS: Basophils # (auto) 0.03 K/uL (0.00-0.20); Basophils % (auto) 0.2 %; Eosinophils # (auto) 0.01 K/uL (0.00-0.50); Eosinophils % (auto) 0.1 %; Hematocrit (blood only) 36.6 % (37.0-47.0); Hemoglobin 12.2 g/dl (12.0-16.0); Immature Granulocytes # (auto) 0.13 K/uL (0.01-0.20); Immature Granulocytes % (auto) 0.8 %; Lymphocytes # (auto) 1.41 K/uL (1.20-3.40); Mean Corpuscular Hemoglobin 29.4 pg (25.0-34.0); Mean Corpuscular Hgb Conc 33.3 g/dL (32.0-36.0); Mean Corpuscular Volume 88.2 fL (80.0-100.0); Mean Platelet Volume 10.9 fL (9.4-12.4); Monocytes # (auto) 0.32 K/uL (0.11-0.59); Monocytes % (auto) 2.1 %; Neutrophils % (auto) 87.8 %; Platelet Count 246 K/uL (130-400); RDW Coefficient of Variation 14.6 % (11.5-14.5); RDW Standard Deviation 47.1 fL (36.4-46.3); Red Blood Count 4.15 M/uL (4.20-5.40)
[2023-12-19] MEDS: NALBUPHINE HCL INJ 10 MG/ML AMP IV PRN (19:35)
[2023-12-19] MEDS: OXYTOCIN 30 UNITS/LR 1,003 ML IV SCH (19:38)
[2023-12-19 20:57] LABS: Fibrinogen 404 mg/dl (184-400); Partial Thromboplastin Time 27 Seconds (21-31); Prothrombin Time 11.1 Seconds (9.0-12.0)
[2023-12-19] MEDS: CETIRIZINE HCL 10 MG TABLET PO SCH (21:27)
[2023-12-19] MEDS: DOCUSATE SODIUM 100 MG CAP PO SCH (21:27)
[2023-12-19] MEDS: ACETAMINOPHEN 325 MG TAB PO SCH (23:51)
[2023-12-20 06:35] LABS: Hematocrit (blood only) 35.8 % (37.0-47.0); Hemoglobin 11.9 g/dl (12.0-16.0); Mean Corpuscular Hemoglobin 29.2 pg (25.0-34.0); Mean Corpuscular Hgb Conc 33.2 g/dL (32.0-36.0); Mean Corpuscular Volume 87.7 fL (80.0-100.0); Mean Platelet Volume 11.1 fL (9.4-12.4); Platelet Count 232 K/uL (130-400); RDW Coefficient of Variation 14.8 % (11.5-14.5); RDW Standard Deviation 47.2 fL (36.4-46.3); Red Blood Count 4.08 M/uL (4.20-5.40); White Blood Count 24.62 K/ul (4.8-10.8)
[2023-12-20 07:02] LABS: Basophils # (auto) 0.05 K/uL (0.00-0.20); Basophils % (auto) 0.2 %; Immature Granulocytes # (auto) 0.18 K/uL (0.01-0.20); Immature Granulocytes % (auto) 0.7 %; Lymphocytes # (auto) 1.23 K/uL (1.20-3.40); Monocytes # (auto) 1.17 K/uL (0.11-0.59); Monocytes % (auto) 4.8 %; Neutrophils # (auto) 21.99 K/uL (1.40-6.50); Neutrophils % (auto) 89.3 %
[2023-12-20] MEDS ORDERED: Nursing to Pharmacy Communication SCH (08:30)
[2023-12-20] MEDS: FERROUS SULFATE 325 MG TAB PO SCH (08:33)
[2023-12-20] MEDS: PRENATAL VITAMIN 1 TAB PO SCH (08:33)
[2023-12-20] MEDS: oxyCODONE HCL IR 5 MG TAB (IMMEDIATE RELEASE) PO PRN (08:33)
--- NOTE | 2023-12-20 10:14 | Obstetrical Progress Note ---
Date of Service December 20, 2023 Assessment & Plan Admission and Anticipated Discharge Date Admission Date: December 19, 2023 Subjective abdomen soft and non tender bowel sounds normal passing gas bandage is dry weston drain in place no calf tenderness ambulating well vaginal bleeding scant hgb 11.7 Results & Data Vital Signs (Past 12 Hours) Vital Signs Temp Pulse Resp BP Pulse Ox O2 Del Method 12/20/23 04:00 36.7 C 86 18 106/68 98 Room Air 12/20/23 04:00 20 98 12/20/23 03:00 18 96 12/20/23 02:00 18 96 12/20/23 01:01 18 97 12/20/23 00:15 36.6 C 94 H 20 104/66 99 Room Air 12/20/23 00:00 20 98 12/19/23 23:00 18 99
[2023-12-20] MEDS: IBUPROFEN 600 MG TAB PO SCH (17:33)
[2023-12-20] MEDS: LIDOCAINE 2% JELLY 5 ML TUBE EXT ONE (18:48)
[2023-12-20] MEDS: bisacodyL 5 MG TABEC PO SCH (19:56)
[2023-12-20] MEDS: CETIRIZINE HCL 10 MG TABLET PO SCH (19:57)
[2023-12-20 23:38] VITALS: TEMP 97.7
[2023-12-21 06:27] LABS: Basophils # (auto) 0.06 K/uL (0.00-0.20); Basophils % (auto) 0.3 %; Eosinophils % (auto) 1.6 %; Hematocrit (blood only) 36.7 % (37.0-47.0); Hemoglobin 12.1 g/dl (12.0-16.0); Immature Granulocytes # (auto) 0.14 K/uL (0.01-0.20); Immature Granulocytes % (auto) 0.7 %; Lymphocytes # (auto) 2.34 K/uL (1.20-3.40); Lymphocytes % (auto) 12.5 %; Mean Corpuscular Hemoglobin 29.4 pg (25.0-34.0); Mean Corpuscular Volume 89.1 fL (80.0-100.0); Mean Platelet Volume 10.8 fL (9.4-12.4); Monocytes # (auto) 1.21 K/uL (0.11-0.59); Monocytes % (auto) 6.5 %; Neutrophils # (auto) 14.69 K/uL (1.40-6.50); Neutrophils % (auto) 78.4 %; Platelet Count 253 K/uL (130-400); RDW Coefficient of Variation 15.3 % (11.5-14.5); RDW Standard Deviation 49.4 fL (36.4-46.3); Red Blood Count 4.12 M/uL (4.20-5.40); White Blood Count 18.74 K/ul (4.8-10.8)
[2023-12-21 08:02] VITALS: BP 102/64; PULSE 98; RESP 16; O2SAT 96
--- NOTE | 2023-12-21 09:01 | Obstetrical Progress Note ---
Date of Service December 21, 2023 Subjective Ambulation: ambulating normally Voiding: no voiding problems Passing Gas:: Yes Diet Tolerance:: regular diet Lochia:: Small Feeding Type:: breast feeding Current Pain Level(1-10): 0 doing well Physical Exam Constitutional WD/WN, vitals as above Gastrointestinal (Abdomen) Inspection/Auscultation: abdomen normal to inspection incision c/d/i. abdomen soft and non-tender. fundus firm below U. Musculoskeletal Extremities: extremities normal to inspection Skin no rashes, warm and dry Neurologic patellar DTR's 2+ bilat, sensation intact Psychiatric A+Ox3, euthymic affect Results & Data Vital Signs (Past 12 Hours) Vital Signs Temp Pulse Resp BP Pulse Ox O2 Del Method 12/21/23 07:57 36.5 C 98 H 16 102/64 96 Room Air 12/20/23 23:37 36.5 C 87 14 133/77 Room Air Laboratory Results 12/19/23 12/19/23 12/19/23 05:52 19:08 20:00 WBC 11.56 H 15.60 H RBC 3.87 L 4.15 L Hgb 11.4 L 12.2 Hct 34.0 L 36.6 L MCV 87.9 88.2 MCH 29.5 29.4 MCHC 33.5 33.3 RDW Std Deviation 46.4 H 47.1 H RDW Coeff of Evelio 14.6 H 14.6 H Plt Count 221 246 MPV 10.6 10.9 Immature Gran % (Auto) 0.8 Neut % (Auto) 87.8 Lymph % (Auto) 9.0 [place] % (Auto) 2.1 Eos % (Auto) 0.1 Baso % (Auto) 0.2 Neut # (Auto) 13.70 H Lymph # (Auto) 1.41 [place] # (Auto) 0.32 Eos # (Auto) 0.01 Baso # (Auto) 0.03 Immature Gran # (Auto) 0.13 PT Cancelled 11.1 INR Cancelled 1.0 APTT Cancelled 27 PTT Ratio Cancelled 1.0 Fibrinogen Cancelled 404 H Treponema pallidum Ab Negative Blood Type AB Positive Antibody Screen NEGATIVE Crossmatch See Detail 12/20/23 12/21/23 05:58 05:42 WBC 24.62 H D 18.74 H RBC 4.08 L 4.12 L Hgb 11.9 L 12.1 Hct 35.8 L 36.7 L MCV 87.7 89.1 MCH 29.2 29.4 MCHC 33.2 33.0 RDW Std Deviation 47.2 H 49.4 H RDW Coeff of Evelio 14.8 H 15.3 H Plt Count 232 253 MPV 11.1 10.8 Immature Gran % (Auto) 0.7 0.7 Neut % (Auto) 89.3 78.4 Lymph % (Auto) 5.0 12.5 [place] % (Auto) 4.8 6.5 Eos % (Auto) 0.0 1.6 Baso % (Auto) 0.2 0.3 Neut # (Auto) 21.99 H 14.69 H Lymph # (Auto) 1.23 2.34 [place] # (Auto) 1.17 H 1.21 H Eos # (Auto) 0.00 0.30 Baso # (Auto) 0.05 0.06 Immature Gran # (Auto) 0.18 0.14 PT INR APTT PTT Ratio Fibrinogen Treponema pallidum Ab Blood Type Antibody Screen Crossmatch
[2023-12-21] MEDS ORDERED: IBUPROFEN 600 MG TAB PO PRN (14:39)
[2023-12-21] MEDS ORDERED: bisacodyL 10 MG SUPP PR PRN (14:39)
[2023-12-21] MEDS ORDERED: ACETAMINOPHEN 325 MG TAB PO PRN (20:39)
--- NOTE | 2023-12-22 15:06 | Anesthesiology Progress Note ---
Date of Service December 22, 2023 Anesthesia Post Procedure Pain Intensity Abdomen: Pain Intensity: 0 Transfer of Care Handoff Completed per policy Notes Mental Status: alert / awake / arousable Patient Amnestic to Procedure: Yes Nausea / Vomiting: adequately controlled Pain: adequately controlled Airway Patency, RR, SpO2: stable & adequate BP & HR: stable & adequate Hydration State: stable & adequate Anesthetic Complications: no major complications apparent
== END 2023-12-21 12:30 | disposition home or self-care (01) | DRG 788 ==
LOC: 4S1 05:16 → EDSTATUS 07:30 → 4E2 17:40